=== PATIENT | female | born 1950 | race Hispanic/Latino ===

== ENCOUNTER 2016-07-13 08:26 | Day surgery (SDC) | payer MEDICARE, BC ==
[2016-07-05 12:12] VITALS: BMI 40.7
[2016-07-13 09:11] LABS: ADD MANUAL DIFF? NO
[2016-07-13 09:22] LABS: BASO # 0.03 K/mm3 (0.0-2.0); BASO % 0.6 % (0.0-3.0); EOS # 0.2 (0.0-0.7); EOS % 3.4 % (1.5-5.0); GRAN # 3.48 (1.4-6.5); GRAN % 66.2 % (50.0-68.0); HEMATOCRIT 39.9 % (36.0-48.0); LYMPH # 1.1 (1.2-3.4); MEAN CELL VOLUME 88.9 fL (80.0-105.0); MEAN CORPUSCULAR HEMOGLOBIN 31.2 pg (25.0-35.0); MEAN CORPUSCULAR HGB CONC 35.1 g/dl (31.0-37.0); MEAN PLATELET VOLUME 8.1 fl (7.0-11.0); MONO # 0.5 (0.1-0.6); MONO % 8.8 % (1.0-6.0); PLATELET COUNT 232 10^3/uL (120.0-450.0); RED CELL DISTRIBUTION WIDTH 13.6 % (11.5-14.5); WHITE BLOOD COUNT 5.3 10^3/ul (4.5-11.0)
[2016-07-13 09:27] LABS: AMYLASE 48 U/L (35-125); LIPASE 64 U/L (23-300)
[2016-07-13 09:30] LABS: INR 1.06 (0.93-1.08); PARTIAL THROMBOPLASTIN TIME 26.2 Seconds (23.7-30.8)
[2016-07-13] MEDS ORDERED: Midazolam 2 MG/2 ML VIAL ONE ×2 (10:22→10:38)
[2016-07-13 10:23] LABS: ALB/GLOB RATIO 1.1 (1.1-1.8); ALKALINE PHOSPHATASE 152 U/L (38-133); ALT/SGPT 124 U/L (7-56); AST/SGOT 158 U/L (15-39); BILIRUBIN,TOTAL 1.3 mg/dL (0.2-1.3); BLOOD UREA NITROGEN 12 mg/dL (7-21); CALCIUM 9.5 mg/dL (8.4-10.5); CARBON DIOXIDE 25 mmol/L (21-33); CHLORIDE 97 mmol/L (98-107); GFR AFRICAN-AMERICAN > 60; GLUCOSE,RANDOM 130 mg/dL (70-110); POTASSIUM 4.1 mmol/L (3.6-5.0); SODIUM 134 mmol/L (132-148); TOTAL PROTEIN 7.9 g/dL (5.8-8.3)
[2016-07-13] MEDS ORDERED: Propofol 10 mg/ml Inj (20 ML) ONE ×2 (10:23→10:39)
[2016-07-13] MEDS ORDERED: Desflurane Inhalation Anesthetic Liq (240 ml) ONE (11:31)
[2016-07-13 11:59] VITALS: TEMP 98
[2016-07-13] MEDS ORDERED: Lactated Ringer's 1,000 ML IV SCH (12:00)
[2016-07-13] MEDS ORDERED: Levalbuterol 0.63 MG/3 ML Inhal Soln UD IH PRN (12:14)
[2016-07-13] MEDS ORDERED: Levalbuterol 1.25 MG/3 ML Inhal Soln UD ONE (12:19)
[2016-07-13] MEDS ORDERED: Levalbuterol 1.25 MG/3 ML Inhal Soln UD IH ONE (12:20)
[2016-07-13] MEDS ORDERED: Levalbuterol 1.25 MG/3 ML Inhal Soln UD IH STA (12:22)
[2016-07-13 17:37] VITALS: BP 134/75; PULSE 73; RESP 18; O2SAT 98
== END 2016-07-13 14:20 | disposition home or self-care (01) ==
LOC: ENDO 08:26
PROVIDERS: ATTEND Internal Medicine Gastroenterology
DX: K25.9 Gastric ulcer, unspecified as acute or chronic, without hemorrhage or perforation (principal); K44.9 Diaphragmatic hernia without obstruction or gangrene; K83.8 Other specified diseases of biliary tract; K76.9 Liver disease, unspecified
CPT/HCPCS: 36415; 43237; 43239; 80053; 82150; 82977; 83690; 85025; 85610; 85730; 88305; 88312; 88342; J2250; J2405; J2704; J3010; J7030; J7120

== ENCOUNTER 2017-01-18 22:16 | Inpatient (IN) | payer MEDICARE ==
[2017-01-18 22:16] VITALS: BMI 40.7
[2017-01-18] MEDS ORDERED: Albuterol-Ipratrop 3 mg / 0.5 (3 ml) UD ONE (22:54)
[2017-01-18] MEDS ORDERED: Albuterol-Ipratrop 3 mg / 0.5 (3 ml) UD IH STA (23:07)
[2017-01-18] MEDS ORDERED: guaiFENesin-DM 600-30 mg ER Tab PO ONE (23:32)
--- NOTE | 2017-01-18 23:38 | ED PDOC ---
Arrival/HPI - General Historian: Patient - History of Present Illness Time/Duration: > month Symptom Onset: Gradual Symptom Course: Intermittent Activities at Onset: Rest Context: Home <GIRISH GONZALEZ - Last Filed: 01/19/17 01:25> <Poncho Easley - Last Filed: 01/19/17 01:40> - General Chief Complaint: Shortness Of Breath Time Seen by Provider: 01/18/17 23:07 - History of Present Illness Narrative History of Present Illness (Text): 01/18/17 23:35 66 yo F PMH asthmatic bronchitis, seasonal allergies, hypertension, hypothyroid , anxiety, transaminitis and ETOH abuse who presents with an intermittent cough x2 months. PMD is Dr. García. Pt states that she had a similar episode 5 years ago and was worked up and diagnosed with asthmatic bronchitis. she now complains of cough that is non-productive, shortness of breath, wheezing, some nausea but denies vomiting, chest pain. pt denies immobility or recent travel. Per son, there is a family hx of asthma and similar complaints. Pt states she is allergic to dogs. Pt drinks ETOH daily but denies tobacco or substance abuse. pt is not employed. (GIRISH GONZALEZ) Past Medical History - Provider Review Nursing Documentation Reviewed: Yes - Cardiac Hx Cardiac Disorders: Yes Hx Hypotension: Yes Hx Pacemaker: No - Pulmonary Hx Respiratory Disorders: Yes Hx Asthma: Yes Hx Bronchitis: Yes - Neurological Hx Paralysis: No - Renal Hx Renal Disorder: No - Endocrine/Metabolic Hx Endocrine Disorders: No - Hematological/Oncological Hx Blood Disorders: No Hx Blood Transfusions: No Hx Blood Transfusion Reaction: No - Integumentary Hx Dermatological Disorder: No - Musculoskeletal/Rheumatological Hx Musculoskeletal Disorders: Yes - Gastrointestinal Hx Gastrointestinal Disorders: Yes Hx Gastritis: Yes Other/Comment: liver damage - Psychiatric Hx Emotional Abuse: No Hx Physical Abuse: No Hx Substance Use: Yes (ETOH) - Surgical History Hx Orthopedic Surgery: Yes (multiple surgeries ) Other/Comment: pt has metal in right ankle - Anesthesia Hx Anesthesia Reactions: No Hx Malignant Hyperthermia: No - Suicidal Assessment Feels Threatened In Home Enviroment: No <GIRISH GONZALEZ - Last Filed: 01/19/17 01:25> Family/Social History - Physician Review Nursing Documentation Reviewed: Yes Family/Social History: No Known Family HX Smoking Status: Never Smoked Hx Alcohol Use: Yes (4-5 GLASSES TO A BOTTLE OF WINE A DAY) Hx Substance Use: No <GIRISH GONZALEZ - Last Filed: 01/19/17 01:25> Allergies/Home Meds <GIRISH GONZALEZ - Last Filed: 01/19/17 01:25> <Poncho Easley - Last Filed: 01/19/17 01:40> Allergies/Adverse Reactions: Allergies No Known Allergies Allergy (Verified 12/13/11 09:48) Home Medications: Home Meds Medication Instructions Recorded Confirmed Alprazolam [Xanax] 0.5 mg PO BID PRN 01/18/17 01/18/17 Dextromethorphan Polistirex 10 mg PO Q12 PRN 01/18/17 01/18/17 [Delsym] Fluticasone Furoate [Arnuity 1 puff IH DAILY 01/18/17 01/18/17 Ellipta] Levalbuterol Tartrate 2 puff IH PRN PRN 01/18/17 01/18/17 [Levalbuterol Tartrate Hfa] Levothyroxine [Synthroid] 25 mcg PO DAILY 01/18/17 01/18/17 Spironolactone [Aldactone] 25 mg PO DAILY 01/18/17 01/18/17 Valsartan 320 mg PO DAILY 01/18/17 01/18/17 diltiaZEM [Cardizem] 180 mg PO DAILY 01/18/17 01/18/17 Review of Systems - Physician Review All systems were reviewed & negative as marked: Yes - Review of Systems Constitutional: absent: Fevers ENT: absent: Tinnitus, Voice Changes, Sore Throat, Rhinorrhea Respiratory: SOB, Cough, Wheezing Cardiovascular: absent: Chest Pain, Palpitations, Edema, Orthopnea, Syncope Neurological: Headache. absent: Dizziness <GIRISH GONZALEZ - Last Filed: 01/19/17 01:25> Physical Exam Vital Signs Reviewed: Yes Appearance: Positive for: Well-Appearing Pain Distress: None Mental Status: Positive for: Alert and Oriented X 3 - Systems Exam Head: Present: Atraumatic, Normocephalic Pupils: Present: PERRL Extroacular Muscles: Present: EOMI Conjunctiva: Present: Normal Mouth: Present: Moist Mucous Membranes, Dry Pharnyx: Present: Normal Nose (Internal): Present: Normal Inspection Neck: Present: Normal Range of Motion. No: Meningeal Signs, Lymphadenopathy Respiratory/Chest: Present: Clear to Auscultation, Good Air Exchange, Respiratory Distress, Wheezes, Tachypneic. No: Accessory Muscle Use Cardiovascular: Present: Normal S1, S2, Tachycardic Abdomen: Present: Other (obese body habitus) Back: Present: Normal Inspection. No: CVA Tenderness, Midline Tenderness Upper Extremity: Present: Normal Inspection, Normal ROM. No: Cyanosis, Edema Lower Extremity: Present: Normal Inspection. No: Edema, CALF TENDERNESS, Cyanosis Neurological: Present: CN II-XII Intact, Speech Normal Skin: Present: Warm, Dry Psychiatric: Present: Alert, Oriented x 3 <GIRISH GONZALEZ - Last Filed: 01/19/17 01:25> Temperature: Afebrile Blood Pressure: Normal Pulse: Tachycardic Respiratory Rate: Normal <Poncho Easley - Last Filed: 01/19/17 01:40> Vital Signs Temp Pulse Resp BP Pulse Ox 01/18/17 22:50 25 H 97 01/18/17 22:41 99.0 F 118 H 26 H 119/72 74 L Medical Decision Making <GIRISH GONZALEZ - Last Filed: 01/19/17 01:25> - Lab Interpretations I have reviewed the lab results: Yes - EKG Interpretation Interpreted by ED Physician: Yes Type: 12 lead EKG <Poncho Easley - Last Filed: 01/19/17 01:40> ED Course and Treatment: 01/19/17 00:01 Impression: 66yo F presenting with cough and wheezing, likely 2/2 asthma exacerbation Differential Diagnosis included but are not limited to: r/o PNA Plan: - Reassess and disposition - CXR - Solu-medrol - duonebs - Labs - BNP Progress Notes: EKG: Ordered, reviewed, and independently interpreted the EKG. Rate : 114 BPM Rhythm : Sinus taachycardia Interpretation : No ST-segment elevations or depressions, no T-wave inversions, normal intervals. 01/19/17 00:16 pt reassessed and is resting comfortably on 2L NC sat 90% 01/19/17 01:19 CXR Impression: As read by me, no pneumothorax, no pneumonia, no cardiomegaly, no infiltrates As compared with prior exam, no significant changes. pt continues to wheeze. Dr. Jett and phlebotomist medical lab assistant Dr. Tavarez contacted for admission to med-surg for obs for COPD exacerbation (GIRISH GONZALEZ) 01/19/17 01:16 Pt. seen and evaluated with the phlebotomist medical lab assistant.Agree with HPI,clinical findings,assessment and treatment plan 01/19/17 01:39 In agreement with resident note, which includes further HPI details. Patient was seen and evaluated with resident, came up with plan and treatment together. 66 year old female presents complaining of an intermittent cough for the past 2 months. Plan: - CXR - Solu-medrol - duonebs - Labs - BNP (Poncho Easley) - Lab Interpretations Lab Results: 01/18/17 22:50 01/18/17 22:50 Lab Results 01/18/17 22:50: Sodium 124 L, Potassium 3.3 L, Chloride 88 L, Carbon Dioxide 25 , Anion Gap 14, BUN 5 L, Creatinine 0.6, Est GFR ( Amer) > 60, Est GFR ( Non-Af Amer) > 60, Random Glucose 132 H, Calcium 9.1, Phosphorus 2.7, Magnesium 1.7, Total Bilirubin 1.1, AST 46 H, ALT 45, Alkaline Phosphatase 122, NT-Pro-B Natriuret Pep 306, Total Protein 7.2, Albumin 3.8, Globulin 3.4, Albumin/ Globulin Ratio 1.1 01/18/17 22:50: WBC 9.4 D, RBC 4.28, Hgb 13.1, Hct 37.5, MCV 87.6, MCH 30.6, MCHC 34.9, RDW 14.9 H, Plt Count 262, MPV 8.1, Gran % 71.9 H, Lymph % (Auto) 16.9 L, [place] % (Auto) 9.2 H, Eos % (Auto) 1.7, Baso % (Auto) 0.3, Gran # 6.73 H , Lymph # 1.6, [place] # 0.9 H, Eos # 0.2, Baso # 0.03 - RAD Interpretation Radiology Orders: 01/18/17 23:32 CHEST TWO VIEWS (PA/LAT) [RAD] Stat - Medication Orders Current Medication Orders: Sodium Chloride (Sodium Chloride 0.9%) 1,000 mls @ 999 mls/hr IV .Q1H1M STA Stop: 01/19/17 02:13 Discontinued Medications Albuterol/Ipratropium (Duoneb 3 Mg/0.5 Mg (3 Ml) Ud) 3 ml IH STAT STA Stop: 01/18/17 23:08 Last Admin: 01/18/17 23:13 Dose: Albuterol/Ipratropium (Duoneb 3 Mg/0.5 Mg (3 Ml) Ud) 3 ml IH STAT STA Stop: 01/19/17 01:11 Guaifenesin (Robitussin) 100 mg PO STAT STA Stop: 01/18/17 23:40 Last Admin: 01/19/17 00:17 Dose: 100 mg Guaifenesin/Dextromethorphan (Mucinex-Dm 600-30 Mg) 1 tab PO ONCE ONE Stop: 01/18/17 23:33 Last Admin: 01/18/17 23:49 Dose: 1 tab Methylprednisolone (Solu-Medrol) 125 mg IVP STAT STA Stop: 01/18/17 23:33 Last Admin: 01/18/17 23:49 Dose: 125 mg IVP Administration Document 01/18/17 23:49 RD (Rec: 01/18/17 23:49 RD [id number]) Charges for Administration # of IVP Administrations 1 Potassium Chloride (K-Dur 20 Meq Er Tab) 40 meq PO STAT STA Stop: 01/19/17 01:14 <GIRISH GONZALEZ - Last Filed: 01/19/17 01:25> - PA / HEALTH ANALYTICS CONSULTANT / Resident Statement OSIRIS has reviewed & agrees with the documentation as recorded. OSIRIS has examined the patient and agrees with the treatment plan. - Scribe Statement The provider has reviewed the documentation as recorded by the Scribe <Poncho Easley - Last Filed: 01/19/17 01:40> - Scribe Statement Lina Lane Provider Scribe Attestation: All medical record entries made by the Scribe were at my direction and personally dictated by me. I have reviewed the chart and agree that the record accurately reflects my personal performance of the history, physical exam, medical decision making, and the department course for this patient. I have also personally directed, reviewed, and agree with the discharge instructions and disposition. (Poncho Easley) Disposition/Present on Arrival - Present on Arrival Any Indicators Present on Arrival: No History of DVT/PE: No History of Uncontrolled Diabetes: No Urinary Catheter: No History of Decub. Ulcer: No History Surgical Site Infection Following: None - Disposition Have Diagnosis and Disposition been Completed?: Yes Disposition Time: 01:20 Patient Plan: Admission <GIRISH GONZALEZ - Last Filed: 01/19/17 01:25> <Poncho Easley - Last Filed: 01/19/17 01:40> - Disposition Diagnosis: COPD exacerbation Disposition: HOSPITALIZED Condition: STABLE Forms: [id number] (French)
[2017-01-18] MEDS ORDERED: guaiFENesin 100 mg/5 ml Syrup UD PO STA (23:39)
[2017-01-18 23:57] LABS: BASO # 0.03 K/mm3 (0.0-2.0); BASO % 0.3 % (0.0-3.0); EOS # 0.2 (0.0-0.7); EOS % 1.7 % (1.5-5.0); GRAN # 6.73 (1.4-6.5); GRAN % 71.9 % (50.0-68.0); HEMATOCRIT 37.5 % (36.0-48.0); LYMPH # 1.6 (1.2-3.4); LYMPH % 16.9 % (22.0-35.0); MEAN CELL VOLUME 87.6 fl (80.0-105.0); MEAN CORPUSCULAR HEMOGLOBIN 30.6 pg (25.0-35.0); MEAN CORPUSCULAR HGB CONC 34.9 g/dl (31.0-37.0); MEAN PLATELET VOLUME 8.1 fl (7.0-11.0); MONO # 0.9 (0.1-0.6); MONO % 9.2 % (1.0-6.0); RED CELL DISTRIBUTION WIDTH 14.9 % (11.5-14.5); WHITE BLOOD COUNT 9.4 10^3/ul (4.5-11.0)
[2017-01-19] LABS: ALB/GLOB RATIO 1.1 (1.1-1.8); ALKALINE PHOSPHATASE 122 U/L (38-126); ALT/SGPT 45 U/L (7-56); AST/SGOT 46 U/L (14-36); BILIRUBIN,TOTAL 1.1 mg/dL (0.2-1.3); BLOOD UREA NITROGEN 5 mg/dL (7-21); CALCIUM 9.1 mg/dL (8.4-10.5); CARBON DIOXIDE 25 mmol/L (21-33); CHLORIDE 88 mmol/L (98-107); GFR AFRICAN-AMERICAN > 60; GLUCOSE,RANDOM 132 mg/dL (70-110); MAGNESIUM 1.7 mg/dL (1.7-2.2); PHOSPHOROUS 2.7 mg/dL (2.5-4.5); POTASSIUM 3.3 mmol/L (3.6-5.0); SODIUM 124 mmol/L (132-148); TOTAL PROTEIN 7.2 g/dL (5.8-8.3)
[2017-01-19] MEDS ORDERED: Albuterol-Ipratrop 3 mg / 0.5 (3 ml) UD IH STA (01:10)
[2017-01-19] MEDS ORDERED: Potassium Chloride 20 mEq ER Tab PO STA (01:13)
[2017-01-19] MEDS ORDERED: Sodium Chloride 0.9% 1,000 ML IV STA (01:13)
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
[2017-01-19] MEDS ORDERED: Albuterol-Ipratrop 3 mg / 0.5 (3 ml) UD IH PRN (02:23)
[2017-01-19] MEDS: Levothyroxine 25 MCG TAB PO SCH (06:04)
[2017-01-19] MEDS: guaiFENesin 100 mg/5 ml Syrup UD PO PRN (06:04)
[2017-01-19] MEDS: Albuterol-Ipratrop 3 mg / 0.5 (3 ml) UD IH SCH ×2 (07:52→13:26)
[2017-01-19 09:14] LABS: HEMATOCRIT 36.9 % (36.0-48.0); MEAN CELL VOLUME 87.6 fl (80.0-105.0); MEAN CORPUSCULAR HEMOGLOBIN 30.2 pg (25.0-35.0); MEAN CORPUSCULAR HGB CONC 34.4 g/dl (31.0-37.0); RED CELL DISTRIBUTION WIDTH 15.2 % (11.5-14.5); WHITE BLOOD COUNT 5.3 10^3/ul (4.5-11.0)
[2017-01-19] MEDS ORDERED: methylPREDNISolone 40 GM in Sodium Chloride 0.9% 250 ML IV SCH (10:00)
[2017-01-19] MEDS: MethylPREDNISolone 40 mg Vial IV SCH ×2 (10:02→18:54)
[2017-01-19] MEDS: levoFLOXacin 500 MG TAB PO SCH (10:04)
[2017-01-19] MEDS: diltiaZEM 180 mg/24 Hours CD Cap PO SCH (10:04)
[2017-01-19] MEDS: Non Formulary Medication (Fluticasone Furoate [Arnuity Ellipta] 1 PUFF) IH SCH (10:12)
[2017-01-19 10:32] LABS: ALB/GLOB RATIO 1.1 (1.1-1.8); ALKALINE PHOSPHATASE 110 U/L (38-126); ALT/SGPT 34 U/L (7-56); AST/SGOT 48 U/L (14-36); BILIRUBIN,TOTAL 0.9 mg/dL (0.2-1.3); BLOOD UREA NITROGEN 6 mg/dL (7-21); CALCIUM 9.4 mg/dL (8.4-10.5); CARBON DIOXIDE 23 mmol/L (21-33); CHLORIDE 96 mmol/L (98-107); CHOLESTEROL 168 mg/dL (130-200); GFR AFRICAN-AMERICAN > 60; GLUCOSE,RANDOM 241 mg/dL (70-110); POTASSIUM 4.4 mmol/L (3.6-5.0); SODIUM 132 mmol/L (132-148); TOTAL PROTEIN 7.3 g/dL (5.8-8.3)
[2017-01-19 11:00] LABS: THYROID STIMULATING HORMONE 0.69 mIU/mL (0.46-4.68)
--- NOTE | 2017-01-19 11:50 | RAD ---
HISTORY: cough r/o pna COMPARISON: 01/03/2017 TECHNIQUE: Chest PA and lateral FINDINGS: LUNGS: No active pulmonary disease. PLEURA: No significant pleural effusion identified. No pneumothorax apparent. CARDIOVASCULAR: Normal. OSSEOUS STRUCTURES: No significant abnormalities. VISUALIZED UPPER ABDOMEN: Normal. OTHER FINDINGS: None. IMPRESSION: No active disease.
[2017-01-19 14:31] LABS: BLOOD UREA NITROGEN 9 mg/dL (7-21); CALCIUM 9.4 mg/dL (8.4-10.5); CARBON DIOXIDE 20 mmol/L (21-33); CHLORIDE 96 mmol/L (98-107); GFR AFRICAN-AMERICAN > 60; GLUCOSE,RANDOM 196 mg/dL (70-110); POTASSIUM 4.2 mmol/L (3.6-5.0); SODIUM 129 mmol/L (132-148)
[2017-01-19] MEDS ORDERED: Levalbuterol 0.63 MG/3 ML Inhal Soln UD IH PRN (15:05)
[2017-01-19] MEDS ORDERED: Pantoprazole 40 mg EC Tab PO STA (18:47)
[2017-01-19 20:03] LABS: BLOOD UREA NITROGEN 15 mg/dL (7-21); CALCIUM 9.2 mg/dL (8.4-10.5); CARBON DIOXIDE 24 mmol/L (21-33); CHLORIDE 93 mmol/L (98-107); GFR AFRICAN-AMERICAN > 60; GLUCOSE,RANDOM 168 mg/dL (70-110); POTASSIUM 4.8 mmol/L (3.6-5.0); SODIUM 125 mmol/L (132-148)
[2017-01-19] MEDS: Levalbuterol 0.63 MG/3 ML Inhal Soln UD IH SCH (23:43)
--- NOTE | 2017-01-20 05:08 | CP.PCM.CON ---
History of Present Illness - History of Present Illness History of Present Illness: 66 yo F w/ pmh of asthmatic bronchitis, htn, hypothyroidism, presented to ED yesterday with increased shortness of breath and persistent cough; found to be hyponatremic, nephrology being consulted for the same; Patient reports her respiratory symptoms began more than 1 month ago; was sent to supply and distribution manager about 2 weeks ago and was placed on multiple inhalers and medrol thuy (which she completed 1 week ago); however, she reports no significant improvement with these new meds; She reports that at baseline, she can only walk about 1 block before having to stop due to feeling tired, short of breath and with back pain; she gets intermittent leg swelling; Patient otherwise reports drinking about 5L of water daily; she gets up ~twice per night to urinate; denies any urinary urgency, dysuria or feeling of incomplete evacuation; Patient on admission was found to have Na of 124, was given 1L NS bolus, with Na increasing to 132 after ~10 hrs. Review of Systems - Constitutional Constitutional: absent: Night Sweats - EENT Eyes: absent: Change in Vision Nose/Mouth/Throat: Sinus Pressure - Cardiovascular Cardiovascular: Leg Edema. absent: Chest Pain, Palpitations - Respiratory Respiratory: As Per HPI - Gastrointestinal Gastrointestinal: absent: Diarrhea, Nausea, Vomiting - Genitourinary Genitourinary: absent: Change in Urinary Stream, Difficulty Urinating, Dysuria, Urinary Frequency, Urinary Urgency - Musculoskeletal Musculoskeletal: Back Pain - Neurological Additional comments: headache associated with recent cough; - Psychiatric Psychiatric: Anxiety Past Patient History - Past Medical History & Family History Pertinent Family History: Father with esophageal CA; - Past Social History Smoking Status: Never Smoked - CARDIAC Hx Cardiac Disorders: Yes Hx Hypotension: Yes Hx Pacemaker: No - PULMONARY Hx Respiratory Disorders: Yes Hx Asthma: Yes Hx Bronchitis: Yes - NEUROLOGICAL Hx Paralysis: No - RENAL Hx Chronic Kidney Disease: No - ENDOCRINE/METABOLIC Hx Endocrine Disorders: No - HEMATOLOGICAL/ONCOLOGICAL Hx Blood Disorders: No - INTEGUMENTARY Hx Dermatological Problems: No - MUSCULOSKELETAL/RHEUMATOLOGICAL Hx Musculoskeletal Disorders: Yes Hx Falls: No - GASTROINTESTINAL Hx Gastrointestinal Disorders: Yes Other/Comment: liver damage - PSYCHIATRIC Hx Anxiety: Yes Hx Emotional Abuse: No Hx Physical Abuse: No Hx Substance Use: No - SURGICAL HISTORY Hx Orthopedic Surgery: Yes (multiple surgeries ) Other/Comment: pt has metal in right ankle - ANESTHESIA Hx Anesthesia Reactions: No Hx Malignant Hyperthermia: No Meds Allergies/Adverse Reactions: Allergies Allergy/AdvReac Type Severity Reaction Status Date / Time No Known Allergies Allergy Verified 12/13/11 09:48 - Medications Medications: Current Medications Alprazolam (Xanax) 0.5 mg PO BID PRN; Protocol PRN Reason: Anxiety Last Admin: 01/19/17 22:05 Dose: 0.5 mg Diltiazem HCl (Cardizem Cd) 180 mg PO DAILY [facility] Last Admin: 01/19/17 10:04 Dose: 180 mg Guaifenesin (Robitussin) 100 mg PO Q8H PRN PRN Reason: Cough Last Admin: 01/19/17 06:04 Dose: 100 mg Levalbuterol HCl (Xopenex) 0.63 mg IH TIDRESP [facility] Last Admin: 01/19/17 23:43 Dose: 0.63 mg Levalbuterol HCl (Xopenex) 0.63 mg IH [id number] PRN PRN Reason: Shortness of Breath Levofloxacin (Levaquin) 500 mg PO DAILY [facility] Last Admin: 01/19/17 10:04 Dose: 500 mg Levothyroxine Sodium (Synthroid) 25 mcg PO 0600 [facility] Last Admin: 01/19/17 06:04 Dose: 25 mcg Loratadine (Claritin) 10 mg PO DAILY [facility] Last Admin: 01/19/17 10:05 Dose: 10 mg Methylprednisolone (Solu-Medrol) 40 mg IV BID [facility] Last Admin: 01/19/17 18:54 Dose: 40 mg Non-Formulary Medication (Fluticasone Furoate [Arnuity Ellipta]) 1 puff IH DAILY [facility] Last Admin: 01/19/17 10:12 Dose: Not Given Pantoprazole Sodium (Protonix Ec Tab) 40 mg PO 0600 [facility] Sodium Chloride (Sodium Chloride Tab) 2 gm PO Q8 [facility] Last Admin: 01/19/17 21:39 Dose: 2 gm Spironolactone (Aldactone) 25 mg PO DAILY [facility] Last Admin: 01/19/17 10:03 Dose: 25 mg Valsartan (Diovan) 320 mg PO DAILY [facility] Last Admin: 01/19/17 10:04 Dose: 320 mg Physical Exam - Constitutional Appears: Non-toxic, No Acute Distress - Head Exam Head Exam: NORMAL INSPECTION - Eye Exam Eye Exam: Normal appearance. absent: Scleral icterus - ENT Exam ENT Exam: Mucous Membranes Moist - Respiratory Exam Respiratory Exam: Wheezes, NORMAL BREATHING PATTERN - Cardiovascular Exam Cardiovascular Exam: RRR, +S1, +S2 - GI/Abdominal Exam GI & Abdominal Exam: Soft. absent: Distended, Tenderness - Extremities Exam Extremities exam: Negative for: pedal edema Additional comments: faint b/l DP pulses; - Neurological Exam Neurological exam: Alert, Oriented x3 - Psychiatric Exam Psychiatric exam: Normal Affect, Normal Mood - Skin Skin Exam: Normal Color, Warm Results - Vital Signs Recent Vital Signs: Last Vital Signs Temp 98.3 F 01/20/17 00:00 Pulse 101 H 01/20/17 00:00 Resp 22 01/20/17 00:00 BP 122/72 01/20/17 00:00 Pulse Ox 95 01/20/17 00:00 - Labs Result Diagrams: 01/19/17 09:00 01/19/17 19:48 Labs: Laboratory Results - last 24 hr 01/19/17 01/19/17 01/19/17 09:00 09:00 09:00 WBC 5.3 D RBC 4.21 Hgb 12.7 Hct 36.9 MCV 87.6 MCH 30.2 MCHC 34.4 RDW 15.2 H Plt Count 230 MPV 8.0 Sodium 132 Potassium 4.4 Chloride 96 L Carbon Dioxide 23 Anion Gap 17 BUN 6 L Creatinine 0.5 Est GFR ( Amer) > 60 Est GFR (Non-Af Amer) > 60 Random Glucose 241 H Serum Osmolality 282 Calcium 9.4 Total Bilirubin 0.9 AST 48 H ALT 34 Alkaline Phosphatase 110 Total Protein 7.3 Albumin 3.8 Globulin 3.5 Albumin/Globulin Ratio 1.1 Triglycerides 70 Cholesterol 168 LDL Cholesterol Direct 93 HDL Cholesterol 55 TSH 3rd Generation 0.69 Ur Random Sodium 01/19/17 01/19/17 01/19/17 14:00 19:48 20:18 WBC RBC Hgb Hct MCV MCH MCHC RDW Plt Count MPV Sodium 129 L 125 L Potassium 4.2 4.8 Chloride 96 L 93 L Carbon Dioxide 20 L 24 Anion Gap 17 13 BUN 9 15 Creatinine 0.5 0.5 Est GFR ( Amer) > 60 > 60 Est GFR (Non-Af Amer) > 60 > 60 Random Glucose 196 H 168 H Serum Osmolality Calcium 9.4 9.2 Total Bilirubin AST ALT Alkaline Phosphatase Total Protein Albumin Globulin Albumin/Globulin Ratio Triglycerides Cholesterol LDL Cholesterol Direct HDL Cholesterol TSH 3rd Generation Ur Random Sodium 44 - Imaging and Cardiology Chest x-ray Status: Image reviewed by me Additional comment: Increased interstitial markings; Assessment & Plan (1) Hyponatremia Assessment and Plan: Likely secondary to volume depletion, in the setting of being on aldactone, in addition to somewhat excessive free water intake; rapid correction following NS bolus also supports this process; Na needing to be rapidly re-lowered today to avoid neurologic manifestations; will continue to monitor; -fluid restriction to < 1L per day until Na stabilizes -hold aldactone -starting NaCl tabs 2g q8h -awaiting Ur osm Status: Acute (2) Bronchitis Assessment and Plan: Prolonged symptoms of unclear etiology; consider chest CT; Status: Acute (3) HTN (hypertension) Assessment and Plan: Normotensive; continue diovan, hold aldactone; Status: Acute
[2017-01-20] MEDS: Levothyroxine 25 MCG TAB PO SCH (06:08)
[2017-01-20] MEDS: Pantoprazole 40 mg EC Tab PO SCH (06:08)
[2017-01-20 07:22] LABS: GRAN # 7.38 (1.4-6.5); GRAN % 87.4 % (50.0-68.0); HEMATOCRIT 33.1 % (36.0-48.0); LYMPH # 0.6 (1.2-3.4); LYMPH % 6.8 % (22.0-35.0); MEAN CELL VOLUME 88.5 fl (80.0-105.0); MEAN CORPUSCULAR HEMOGLOBIN 30.5 pg (25.0-35.0); MEAN CORPUSCULAR HGB CONC 34.4 g/dl (31.0-37.0); MEAN PLATELET VOLUME 8.1 fl (7.0-11.0); MONO # 0.5 (0.1-0.6); MONO % 5.8 % (1.0-6.0); RED CELL DISTRIBUTION WIDTH 15.3 % (11.5-14.5); WHITE BLOOD COUNT 8.4 10^3/ul (4.5-11.0)
[2017-01-20 07:24] LABS: ALB/GLOB RATIO 1.1 (1.1-1.8); ALKALINE PHOSPHATASE 88 U/L (38-126); ALT/SGPT 36 U/L (7-56); AST/SGOT 37 U/L (14-36); BILIRUBIN,TOTAL 0.6 mg/dL (0.2-1.3); BLOOD UREA NITROGEN 13 mg/dL (7-21); CALCIUM 8.8 mg/dL (8.4-10.5); CARBON DIOXIDE 24 mmol/L (21-33); CHLORIDE 95 mmol/L (98-107); GFR AFRICAN-AMERICAN > 60; GLUCOSE,RANDOM 165 mg/dL (70-110); SODIUM 126 mmol/L (132-148); TOTAL PROTEIN 6.6 g/dL (5.8-8.3)
--- NOTE | 2017-01-20 08:28 | CARD ---
APPROVED REPORT EKG Measurement Heart [id number] <Conclusion> Sinus tachycardia NSSTW changes Prolonged QTc
[2017-01-20] MEDS: Levalbuterol 0.63 MG/3 ML Inhal Soln UD IH SCH ×3 (08:32→21:30)
[2017-01-20 08:56] LABS: POTASSIUM 4.6 mmol/L (3.6-5.0)
[2017-01-20] MEDS: MethylPREDNISolone 40 mg Vial IVP SCH ×2 (09:40→22:43)
[2017-01-20] MEDS: diltiaZEM 180 mg/24 Hours CD Cap PO SCH (09:41)
[2017-01-20] MEDS: Non Formulary Medication (Fluticasone Furoate [Arnuity Ellipta] 1 PUFF) IH SCH (09:41)
[2017-01-20] MEDS: levoFLOXacin 500 MG TAB PO SCH (09:41)
[2017-01-20] MEDS: Fluticasone Nasal 50 mcg/Spray NS SCH (09:42)
--- NOTE | 2017-01-20 13:39 | CON ---
DATE: 01/20/2017 PULMONARY CONSULTATION REASON FOR CONSULTATION: Chronic obstructive pulmonary disease. REFERRING PHYSICIAN: Dr. Tatum HISTORY OF PRESENT ILLNESS: The patient is a 66-year-old female, with past medical history significant for chronic obstructive pulmonary disease, asthma, recurrent bronchitis, seasonal allergies, hypertension, anxiety disorder and alcohol abuse, who presents to [facility] with worsening shortness of breath at rest, dyspnea on exertion, cough, and minimal sputum production for the past 5 days. The patient states that these symptoms have been present over the past few months, but did get much worse over the past 5 days. This worsening prompted her to come to the emergency room for additional evaluation and treatment. There is no history of chest pain, coughing up of blood, or chest pain - made worse with deep respirations. There is no history of temperatures, chills or infectious exposure. There is no history of night sweats, weight loss or appetite change prior to the above events. No history of leg or calf pains. No history of syncope or diaphoresis. No history of recent travel or trauma. REVIEW OF SYSTEMS: The patient does state to a runny nose with postnasal drip over the past few months. No history of nausea, vomiting or diarrhea. No acute urinary symptoms. No new neurologic or musculoskeletal complaints. Rest of the review of systems is negative. ALLERGIES: NO KNOWN ALLERGIES. SOCIAL HISTORY: Negative for tobacco. Positive for alcohol abuse. FAMILY HISTORY: No inheritable diseases. HOME MEDICATIONS: Include albuterol inhaler, Xanax, Cardizem, Valsartan, Aldactone, and Synthroid. PHYSICAL EXAMINATION GENERAL: The patient appears comfortable at rest this morning. She is not short of breath. She is not using accessory muscles for breathing. VITAL SIGNS: Temperature is 98.3, pulse is 88, respirations are 18, and blood pressure is 122/72. Oxygen saturation on room air is 95% to 96%. HEENT: Normocephalic and atraumatic. NECK: No JVD. CARDIOVASCULAR: Positive S1 and S2. No S3 gallop. LUNGS: Decreased breath sounds at the bases. Minimal rhonchi. Few minimal expiratory wheezes are also appreciated. EXTREMITIES: Mild edema. No cyanosis and no clubbing. Calves are nontender to palpation. GASTROINTESTINAL: Abdomen is soft, nontender and nondistended. Bowel sounds are positive. SKIN: No acute rash. NEUROLOGIC: Exam is limited at the present time. PERTINENT LABORATORY DATA: Chest x-ray was done and reviewed. There is no active disease present. CBC: White count of 5.3, hemoglobin of 12.7, hematocrit of 36.9, and platelets of 230. Complete metabolic profile: Sodium of 125, chloride of 93, and random glucose of 168. Rest of the metabolic profiles are within normal limits. IMPRESSION 1. Acute bronchitis. 2. Chronic obstructive pulmonary disease. 3. Allergic rhinitis. 4. Hyponatremia. PLAN: The patient presents to [facility] with a 5-day history of worsening pulmonary symptoms. Again, she has been experiencing more symptoms for the past 2 months, but the symptoms became much worse over the past 5 days - prompting her to come to the emergency room. I did review the chest x-ray as above. The chest x-ray reveals no acute disease. I have also reviewed the laboratory data. Hyponatremia is noted. The patient does admit to daily alcohol abuse, as well as drinking significant amounts of water at home. I have strongly advised her against these practices. Input by Renal is noted. Repeat a.m. labs are pending. On physical exam, there is only minimal bronchospasm appreciated. I will continue the current nebulizer treatments and decrease the intravenous steroids this morning. The patient remains on oral antibiotic therapy. There are no temperatures noted. There is no leukocytosis. Clinical status of the patient is certainly improved - compared to the initial presentation. I will discuss the above with the attending physician. Thank you very much for this pulmonary consultation. Alli Turner MD MTDShari
--- NOTE | 2017-01-20 16:56 | CP.PCM.PN ---
<Karri Sweeney - Last Filed: 01/20/17 16:53> Subjective - Date & Time of Evaluation Date of Evaluation: 01/20/17 Time of Evaluation: 10:00 - Subjective Subjective: Medicine Progress note. Dr. Tatum Pt seen and examined at bedside. No acute events overnight. Patient denies any CP. She is visibly SOB in the bed this morning, and reports that she "saw our team rounding and was hurrying to put on her clothes and that is why she is short of breath." She states that overall, her SOB has improved. Denies any Cough, no CP. No F/C. No new complaints. Objective - Vital Signs/Intake and Output Vital Signs (last 24 hours): Temp Pulse Resp BP Pulse Ox 97.6 F 88 20 133/67 95 01/20/17 08:00 01/20/17 08:00 01/20/17 08:00 01/20/17 08:00 01/20/17 08:00 Intake and Output: 01/20/17 01/20/17 06:59 18:59 Intake Total 240 820 Balance 240 820 - Medications Medications: Current Medications Alprazolam (Xanax) 0.5 mg PO BID PRN; Protocol PRN Reason: Anxiety Last Admin: 01/20/17 14:55 Dose: 0.5 mg Diltiazem HCl (Cardizem Cd) 180 mg PO DAILY [facility] Last Admin: 01/20/17 09:41 Dose: 180 mg Fluticasone Propionate (Flonase) 1 actuation NS DAILY [facility] Last Admin: 01/20/17 09:42 Dose: Not Given Guaifenesin (Robitussin) 100 mg PO Q8H PRN PRN Reason: Cough Last Admin: 01/19/17 06:04 Dose: 100 mg Levalbuterol HCl (Xopenex) 0.63 mg IH TIDRESP [facility] Last Admin: 01/20/17 13:00 Dose: 0.63 mg Levalbuterol HCl (Xopenex) 0.63 mg IH [id number] PRN PRN Reason: Shortness of Breath Levofloxacin (Levaquin) 500 mg PO DAILY [facility] Last Admin: 01/20/17 09:41 Dose: 500 mg Levothyroxine Sodium (Synthroid) 25 mcg PO 0600 [facility] Last Admin: 01/20/17 06:08 Dose: 25 mcg Loratadine (Claritin) 10 mg PO DAILY [facility] Last Admin: 01/20/17 09:41 Dose: 10 mg Methylprednisolone (Solu-Medrol) 30 mg IVP Q12 [facility] Last Admin: 01/20/17 09:40 Dose: 30 mg Non-Formulary Medication (Fluticasone Furoate [Arnuity Ellipta]) 1 puff IH DAILY [facility] Last Admin: 01/20/17 09:41 Dose: Not Given Pantoprazole Sodium (Protonix Ec Tab) 40 mg PO 0600 [facility] Last Admin: 01/20/17 06:08 Dose: 40 mg Sodium Chloride (Sodium Chloride Tab) 2 gm PO Q8 [facility] Last Admin: 01/20/17 13:33 Dose: 2 gm Spironolactone (Aldactone) 25 mg PO DAILY [facility] Last Admin: 01/19/17 10:03 Dose: 25 mg Valsartan (Diovan) 320 mg PO DAILY [facility] Last Admin: 01/20/17 09:43 Dose: 320 mg - Labs Labs: 01/20/17 06:00 01/20/17 06:00 - Constitutional Appears: Well, No Acute Distress - Head Exam Head Exam: ATRAUMATIC, NORMAL INSPECTION, NORMOCEPHALIC - Eye Exam Eye Exam: EOMI, Normal appearance - ENT Exam ENT Exam: Mucous Membranes Moist - Respiratory Exam Respiratory Exam: Clear to Ausculation Bilateral. absent: Decreased Breath Sounds, Rales, Rhonchi, Wheezes Additional comments: Increased work of breathing noted this AM, however, lung sounds are clear bilaterally - Cardiovascular Exam Cardiovascular Exam: RRR, +S1, +S2. absent: JVD - GI/Abdominal Exam GI & Abdominal Exam: Soft. absent: Firm, Guarding, Rigid, Tenderness, Rebound - Extremities Exam Extremities Exam: Normal Inspection. absent: Calf Tenderness, Pedal Edema - Back Exam Back Exam: NORMAL INSPECTION - Neurological Exam Neurological Exam: Alert, Awake, Oriented x3 - Psychiatric Exam Psychiatric exam: Anxious, Normal Mood - Skin Skin Exam: Dry, Intact, Normal Color, Warm Assessment and Plan - Assessment and Plan (Free Text) Assessment: 66yo F with PMHx of asthmatic bronchitis, HTN, hypothyroidism, anxiety, and ETOH abuse here for evaluation of SOB. Patient's lung exam has improved since admission. However, she desaturates to 90% when on RA and down to 86-87% upon walking a few steps. Will need eval for home O2. 1. Asthma/COPD Exacerbation Continue breathing treatments Solumedrol tapered to 30mg IV BID Levaquin Supplemental O2 CXR - no active disease Pulm following Continue home meds Patient continues to desaturate off supplemental O2 and with minimal exertion Patient may benefit with home O2 on Claritin, Robitussin prn 2. Hyponatremia Urine studies sent Nephrology following Fluid restriction Salt tabs Continue to monitor 3. Hx of Anxiety Xanax prn 4. Hx of HTN continue home meds hold spironolactone due to above 5. Hx of Hypothyroid continue home meds 6. PPx Protonix SCDs Discussed case with Dr. Deepti Sweeney PGY1 <Sarahy Tatum - Last Filed: 01/20/17 18:39> Objective - Vital Signs/Intake and Output Vital Signs (last 24 hours): Temp Pulse Resp BP Pulse Ox 97.6 F 88 20 133/67 95 01/20/17 08:00 01/20/17 08:00 01/20/17 08:00 01/20/17 08:00 01/20/17 08:00 - Medications Medications: Current Medications Alprazolam (Xanax) 0.5 mg PO BID PRN; Protocol PRN Reason: Anxiety Last Admin: 01/20/17 14:55 Dose: 0.5 mg Diltiazem HCl (Cardizem Cd) 180 mg PO DAILY [facility] Last Admin: 01/20/17 09:41 Dose: 180 mg Fluticasone Propionate (Flonase) 1 actuation NS DAILY [facility] Last Admin: 01/20/17 09:42 Dose: Not Given Guaifenesin (Robitussin) 100 mg PO Q8H PRN PRN Reason: Cough Last Admin: 01/20/17 18:08 Dose: 100 mg Levalbuterol HCl (Xopenex) 0.63 mg IH TIDRESP [facility] Last Admin: 01/20/17 13:00 Dose: 0.63 mg Levalbuterol HCl (Xopenex) 0.63 mg IH [id number] PRN PRN Reason: Shortness of Breath Levofloxacin (Levaquin) 500 mg PO DAILY [facility] Last Admin: 01/20/17 09:41 Dose: 500 mg Levothyroxine Sodium (Synthroid) 25 mcg PO 0600 [facility] Last Admin: 01/20/17 06:08 Dose: 25 mcg Loratadine (Claritin) 10 mg PO DAILY [facility] Last Admin: 01/20/17 09:41 Dose: 10 mg Methylprednisolone (Solu-Medrol) 30 mg IVP Q12 [facility] Last Admin: 01/20/17 09:40 Dose: 30 mg Non-Formulary Medication (Fluticasone Furoate [Arnuity Ellipta]) 1 puff IH DAILY [facility] Last Admin: 01/20/17 09:41 Dose: Not Given Pantoprazole Sodium (Protonix Ec Tab) 40 mg PO 0600 [facility] Last Admin: 01/20/17 06:08 Dose: 40 mg Sodium Chloride (Sodium Chloride Tab) 2 gm PO Q8 [facility] Last Admin: 01/20/17 13:33 Dose: 2 gm Spironolactone (Aldactone) 25 mg PO DAILY [facility] Last Admin: 01/19/17 10:03 Dose: 25 mg Valsartan (Diovan) 320 mg PO DAILY [facility] Last Admin: 01/20/17 09:43 Dose: 320 mg Attending/Attestation - Attestation I have personally seen and examined this patient.: Yes I have fully participated in the care of the patient.: Yes I have reviewed all pertinent clinical information, including history, physical exam and plan: Yes Notes (Text): 01/20/17 18:36 66 year old female with past medical history of asthma/COPD, hypertension and hypothyroidism who is admitted with COPD exacerbation. Pulmonary evaluation was appreciated. Her wheezing has improved with iv steroids which are being tapered. However she continues to have dyspnea and hypoxia with minimal exertion. Will check 6min walk test tomorrow to assess for possible home O2 requirement. She also presented with hyponatremia for which nephrology is following. She is currently on fluid restriction. Sarahy Tatum MD Hospitalist.
[2017-01-20] MEDS: guaiFENesin 100 mg/5 ml Syrup UD PO PRN (18:08)
[2017-01-21] MEDS: Pantoprazole 40 mg EC Tab PO SCH (05:31)
[2017-01-21] MEDS: Levothyroxine 25 MCG TAB PO SCH (05:32)
--- NOTE | 2017-01-21 06:24 | CP.PCM.PN ---
Subjective - Date & Time of Evaluation Date of Evaluation: 01/20/17 Time of Evaluation: 12:00 - Subjective Subjective: Patient reports shortness of breath on exertion but that this is her baseline, otherwise feels better; Objective - Vital Signs/Intake and Output Vital Signs (last 24 hours): Temp Pulse Resp BP Pulse Ox 97.9 F 90 18 131/79 95 01/20/17 16:00 01/20/17 16:00 01/20/17 16:00 01/20/17 16:00 01/20/17 16:00 Intake and Output: 01/20/17 01/21/17 18:59 06:59 Intake Total 240 Balance 240 - Medications Medications: Current Medications Alprazolam (Xanax) 0.5 mg PO BID PRN; Protocol PRN Reason: Anxiety Last Admin: 01/20/17 22:42 Dose: 0.5 mg Diltiazem HCl (Cardizem Cd) 180 mg PO DAILY [facility] Last Admin: 01/20/17 09:41 Dose: 180 mg Fluticasone Propionate (Flonase) 1 actuation NS DAILY [facility] Last Admin: 01/20/17 09:42 Dose: Not Given Guaifenesin (Robitussin) 100 mg PO Q8H PRN PRN Reason: Cough Last Admin: 01/20/17 18:08 Dose: 100 mg Levalbuterol HCl (Xopenex) 0.63 mg IH TIDRESP [facility] Last Admin: 01/20/17 21:30 Dose: 0.63 mg Levalbuterol HCl (Xopenex) 0.63 mg IH [id number] PRN PRN Reason: Shortness of Breath Levofloxacin (Levaquin) 500 mg PO DAILY [facility] Last Admin: 01/20/17 09:41 Dose: 500 mg Levothyroxine Sodium (Synthroid) 25 mcg PO 0600 [facility] Last Admin: 01/21/17 05:32 Dose: 25 mcg Loratadine (Claritin) 10 mg PO DAILY [facility] Last Admin: 01/20/17 09:41 Dose: 10 mg Methylprednisolone (Solu-Medrol) 30 mg IVP Q12 [facility] Last Admin: 01/20/17 22:43 Dose: 30 mg Non-Formulary Medication (Fluticasone Furoate [Arnuity Ellipta]) 1 puff IH DAILY [facility] Last Admin: 01/20/17 09:41 Dose: Not Given Pantoprazole Sodium (Protonix Ec Tab) 40 mg PO 0600 [facility] Last Admin: 01/21/17 05:31 Dose: 40 mg Sodium Chloride (Sodium Chloride Tab) 2 gm PO Q8 [facility] Last Admin: 01/21/17 05:31 Dose: 2 gm Spironolactone (Aldactone) 25 mg PO DAILY [facility] Last Admin: 01/19/17 10:03 Dose: 25 mg Valsartan (Diovan) 320 mg PO DAILY [facility] Last Admin: 01/20/17 09:43 Dose: 320 mg - Constitutional Appears: Non-toxic, No Acute Distress - Head Exam Head Exam: NORMAL INSPECTION - Eye Exam Eye Exam: Normal appearance. absent: Scleral icterus - ENT Exam ENT Exam: Mucous Membranes Moist - Respiratory Exam Respiratory Exam: Clear to Ausculation Bilateral. absent: Rales, Rhonchi, Wheezes - Cardiovascular Exam Cardiovascular Exam: RRR, +S1, +S2 - GI/Abdominal Exam GI & Abdominal Exam: Soft. absent: Distended, Tenderness - Extremities Exam Additional comments: no leg edema; - Neurological Exam Neurological Exam: Alert, Awake - Psychiatric Exam Psychiatric exam: Normal Affect, Normal Mood - Skin Skin Exam: Normal Color, Warm. absent: Cyanosis Assessment and Plan (1) Hyponatremia Assessment & Plan: After needing to be re-lowered rapidly yesterday, now improving gradually; continue fluid restriction and salt tabs; Status: Acute (2) Bronchitis Assessment & Plan: Reports symptomatic improvement; f/u pulm recs; Status: Acute (3) HTN (hypertension) Assessment & Plan: BP controlled; reports being prescribed aldactone but not taking it, continue to hold; Status: Acute
[2017-01-21] MEDS: Levalbuterol 0.63 MG/3 ML Inhal Soln UD IH SCH ×2 (07:25→13:43)
[2017-01-21 07:27] LABS: GRAN % 90.2 % (50.0-68.0); HEMATOCRIT 35.2 % (36.0-48.0); LYMPH # 0.5 (1.2-3.4); LYMPH % 5.6 % (22.0-35.0); MEAN CELL VOLUME 88.7 fl (80.0-105.0); MEAN CORPUSCULAR HEMOGLOBIN 30.7 pg (25.0-35.0); MEAN CORPUSCULAR HGB CONC 34.7 g/dl (31.0-37.0); MEAN PLATELET VOLUME 7.7 fl (7.0-11.0); MONO # 0.4 (0.1-0.6); MONO % 4.2 % (1.0-6.0); PLATELET COUNT 264 10^3/uL (120.0-450.0); RED CELL DISTRIBUTION WIDTH 15.7 % (11.5-14.5); WHITE BLOOD COUNT 8.5 10^3/ul (4.5-11.0)
[2017-01-21 07:41] LABS: ALB/GLOB RATIO 1.1 (1.1-1.8); ALKALINE PHOSPHATASE 93 U/L (38-126); ALT/SGPT 50 U/L (7-56); AST/SGOT 59 U/L (14-36); BILIRUBIN,TOTAL 0.6 mg/dL (0.2-1.3); BLOOD UREA NITROGEN 13 mg/dL (7-21); CALCIUM 9.3 mg/dL (8.4-10.5); CARBON DIOXIDE 25 mmol/L (21-33); CHLORIDE 100 mmol/L (98-107); GFR AFRICAN-AMERICAN > 60; GLUCOSE,RANDOM 162 mg/dL (70-110); POTASSIUM 4.7 mmol/L (3.6-5.0); SODIUM 134 mmol/L (132-148); TOTAL PROTEIN 6.8 g/dL (5.8-8.3)
--- NOTE | 2017-01-21 09:16 | PN ---
DATE: 01/21/2017 SUBJECTIVE: The patient appears very comfortable this morning. She is not short of breath at rest. PHYSICAL EXAMINATION: VITAL SIGNS: Temperature is 97.9, pulse 90, respirations 18, blood pressure 131/79. Oxygen saturation on room air is 95%. HEENT: Normocephalic, atraumatic. NECK: No JVD. CARDIOVASCULAR: Positive S1, S2. No S3 gallop. LUNGS: Improved breath sounds at the bases. Very minimal/less rhonchi. No wheezing. EXTREMITIES: Mild edema. No cyanosis. No clubbing. Calves are nontender to palpation. GI: Abdomen is soft, nontender, and nondistended. Bowel sounds are positive. SKIN: No acute rash. NEUROLOGIC: Exam limited at the present time. IMPRESSION: 1. Acute bronchitis. 2. Chronic obstructive pulmonary disease. 3. Allergic rhinitis. 4. Hyponatremia. PLAN: The patient appears very comfortable this morning. She is not short of breath at rest. Her postnasal drip is better. She states to feeling much better overall. On physical exam, only minimal bronchospasm is noted. In addition, the oxygen saturation on room air is now 95%. I will continue with the current nebulizer treatments, and change to oral steroids this morning. I will also continue with the nasal steroids. Input by Renal is noted. Repeat a.m. labs are pending. Clinical status of the patient is significantly improved. I will discuss the above with the attending physician. Alli Turner MD MTDD
[2017-01-21] MEDS: diltiaZEM 180 mg/24 Hours CD Cap PO SCH (09:42)
[2017-01-21] MEDS: levoFLOXacin 500 MG TAB PO SCH (09:44)
[2017-01-21] MEDS: guaiFENesin 100 mg/5 ml Syrup UD PO PRN ×2 (09:48→17:45)
[2017-01-21 10:00] LABS: ANISOCYTOSIS SLIGHT; NEUTROPHIL 90 % (50.0-70.0); PLATELET ESTIMATE NORMAL (NORMAL)
[2017-01-21] MEDS: Non Formulary Medication (Fluticasone Furoate [Arnuity Ellipta] 1 PUFF) IH SCH (10:44)
[2017-01-21] MEDS: Fluticasone Nasal 50 mcg/Spray NS SCH (12:07)
--- NOTE | 2017-01-21 12:45 | CP.PCM.PN ---
Subjective - Date & Time of Evaluation Date of Evaluation: 01/21/17 Time of Evaluation: 12:40 - Subjective Subjective: 66 yo F w/ pmh of htn, hypothyroidism, admitted with acute bronchitis and hyponatremia; Patient found to be hypoxic on RA yesterday; otherwise still coughing but improved; Objective - Vital Signs/Intake and Output Vital Signs (last 24 hours): Temp Pulse Resp BP Pulse Ox 97.5 F L 90 22 137/80 95 01/21/17 07:30 01/21/17 09:42 01/21/17 07:30 01/21/17 09:42 01/21/17 07:30 Intake and Output: 01/21/17 01/21/17 06:59 18:59 Intake Total 240 Balance 240 - Medications Medications: Current Medications Alprazolam (Xanax) 0.5 mg PO BID PRN; Protocol PRN Reason: Anxiety Last Admin: 01/20/17 22:42 Dose: 0.5 mg Diltiazem HCl (Cardizem Cd) 180 mg PO DAILY [facility] Last Admin: 01/21/17 09:42 Dose: 180 mg Fluticasone Propionate (Flonase) 1 actuation NS DAILY [facility] Last Admin: 01/21/17 12:07 Dose: 1 spray Guaifenesin (Robitussin) 100 mg PO Q8H PRN PRN Reason: Cough Last Admin: 01/21/17 09:48 Dose: 100 mg Levalbuterol HCl (Xopenex) 0.63 mg IH TIDRESP [facility] Last Admin: 01/21/17 07:25 Dose: 0.63 mg Levalbuterol HCl (Xopenex) 0.63 mg IH [id number] PRN PRN Reason: Shortness of Breath Levofloxacin (Levaquin) 500 mg PO DAILY [facility] Last Admin: 01/21/17 09:44 Dose: 500 mg Levothyroxine Sodium (Synthroid) 25 mcg PO 0600 [facility] Last Admin: 01/21/17 05:32 Dose: 25 mcg Loratadine (Claritin) 10 mg PO DAILY [facility] Last Admin: 01/21/17 09:43 Dose: 10 mg Non-Formulary Medication (Fluticasone Furoate [Arnuity Ellipta]) 1 puff IH DAILY [facility] Last Admin: 01/20/17 09:41 Dose: Not Given Pantoprazole Sodium (Protonix Ec Tab) 40 mg PO 0600 [facility] Last Admin: 01/21/17 05:31 Dose: 40 mg Prednisone (Prednisone Tab) 40 mg PO DAILY [facility] Last Admin: 01/21/17 09:44 Dose: 40 mg Sodium Chloride (Sodium Chloride Tab) 2 gm PO Q8 [facility] Last Admin: 01/21/17 05:31 Dose: 2 gm Spironolactone (Aldactone) 25 mg PO DAILY [facility] Last Admin: 01/19/17 10:03 Dose: 25 mg Valsartan (Diovan) 320 mg PO DAILY [facility] Last Admin: 01/21/17 09:48 Dose: 320 mg - Labs Labs: 01/21/17 07:22 01/21/17 07:22 - Constitutional Appears: Non-toxic, No Acute Distress - Head Exam Head Exam: NORMAL INSPECTION - Eye Exam Eye Exam: Normal appearance. absent: Scleral icterus - ENT Exam ENT Exam: Mucous Membranes Moist - Respiratory Exam Respiratory Exam: absent: Rales, Rhonchi, Respiratory Distress Additional comments: mild wheezes; - Cardiovascular Exam Cardiovascular Exam: REGULAR RHYTHM, +S1, +S2 - Extremities Exam Additional comments: no leg edema; - Neurological Exam Neurological Exam: Alert, Awake - Psychiatric Exam Psychiatric exam: Normal Affect, Normal Mood - Skin Skin Exam: Normal Color, Warm. absent: Cyanosis Assessment and Plan (1) Hyponatremia Assessment & Plan: Resolving; appears to have been secondary to volume depletion coupled with excessive PO water intake; Na rising at safe rate since yesterday; -can decrease fluid restriction to 2L/day -d/c salt tabs (making her more thirsty) Status: Acute (2) Bronchitis Assessment & Plan: Found to be hypoxic yesterday although improved today; f/u with pulm; Status: Acute (3) HTN (hypertension) Assessment & Plan: Controlled on diltiazem and valsartan; continue same; d/c aldactone (was not taking it at home); Status: Acute
[2017-01-21 16:15] VITALS: BP 133/85; PULSE 98; RESP 20; TEMP 98.1; O2SAT 93
--- NOTE | 2017-01-21 17:01 | CP.PCM.DIS ---
<Pato Lakhani - Last Filed: 01/21/17 17:01> Provider - Provider Date of Admission: 01/20/17 16:56 Attending physician: Sarahy Tatum MD Time Spent in preparation of Discharge (in minutes): 30 Hospital Course - Lab Results Lab Results: Most Recent Lab Values WBC 8.5 10^3/ul (4.5-11.0) 01/21/17 07:22 RBC 3.97 10^6/uL (3.5-6.1) 01/21/17 07:22 Hgb 12.2 g/dL (12.0-16.0) 01/21/17 07:22 Hct 35.2 % (36.0-48.0) L 01/21/17 07:22 MCV 88.7 fl (80.0-105.0) 01/21/17 07:22 MCH 30.7 pg (25.0-35.0) 01/21/17 07:22 MCHC 34.7 g/dl (31.0-37.0) 01/21/17 07:22 RDW 15.7 % (11.5-14.5) H 01/21/17 07:22 Plt Count 264 10^3/uL (120.0-450.0) 01/21/17 07:22 MPV 7.7 fl (7.0-11.0) 01/21/17 07:22 Gran % 90.2 % (50.0-68.0) H 01/21/17 07:22 Lymph % (Auto) 5.6 % (22.0-35.0) L 01/21/17 07:22 [place] % (Auto) 4.2 % (1.0-6.0) 01/21/17 07:22 Eos % (Auto) 0.0 % (1.5-5.0) L 01/21/17 07:22 Baso % (Auto) 0.0 % (0.0-3.0) 01/21/17 07:22 Gran # 7.70 (1.4-6.5) H 01/21/17 07:22 Lymph # 0.5 (1.2-3.4) L 01/21/17 07:22 [place] # 0.4 (0.1-0.6) 01/21/17 07:22 Eos # 0.0 (0.0-0.7) 01/21/17 07:22 Baso # 0.00 K/mm3 (0.0-2.0) 01/21/17 07:22 Neutrophils % (Manual) 90 % (50.0-70.0) H 01/21/17 07:22 Lymphocytes % (Manual) 6 % (22.0-35.0) L 01/21/17 07:22 Monocytes % (Manual) 4 % (1.0-6.0) 01/21/17 07:22 Platelet Evaluation Normal (NORMAL) 01/21/17 07:22 Anisocytosis (manual) Slight 01/21/17 07:22 Sodium 134 mmol/L (132-148) 01/21/17 07:22 Potassium 4.7 mmol/L (3.6-5.0) 01/21/17 07:22 Chloride 100 mmol/L (98-107) 01/21/17 07:22 Carbon Dioxide 25 mmol/L (21-33) 01/21/17 07:22 Anion Gap 14 (10-20) 01/21/17 07:22 BUN 13 mg/dL (7-21) 01/21/17 07:22 Creatinine 0.5 mg/dL (0.5-1.4) 01/21/17 07:22 Est GFR ( Amer) > 60 01/21/17 07:22 Est GFR (Non-Af Amer) > 60 01/21/17 07:22 Random Glucose 162 mg/dL (70-110) H 01/21/17 07:22 Serum Osmolality 282 mosm/kg (272-300) 01/19/17 09:00 Calcium 9.3 mg/dL (8.4-10.5) 01/21/17 07:22 Phosphorus 2.7 mg/dL (2.5-4.5) 01/18/17 22:50 Magnesium 1.7 mg/dL (1.7-2.2) 01/18/17 22:50 Total Bilirubin 0.6 mg/dL (0.2-1.3) 01/21/17 07:22 AST 59 U/L (14-36) H D 01/21/17 07:22 ALT 50 U/L (7-56) 01/21/17 07:22 Alkaline Phosphatase 93 U/L (38-126) 01/21/17 07:22 NT-Pro-B Natriuret Pep 306 pg/mL (0-450) 01/18/17 22:50 Total Protein 6.8 g/dL (5.8-8.3) 01/21/17 07:22 Albumin 3.6 g/dL (3.0-4.8) 01/21/17 07:22 Globulin 3.2 gm/dL 01/21/17 07:22 Albumin/Globulin Ratio 1.1 (1.1-1.8) 01/21/17 07:22 Triglycerides 70 mg/dL (35-160) 01/19/17 09:00 Cholesterol 168 mg/dL (130-200) 01/19/17 09:00 LDL Cholesterol Direct 93 mg/dL (0-129) 01/19/17 09:00 HDL Cholesterol 55 mg/dL (29-60) 01/19/17 09:00 TSH 3rd Generation 0.69 mIU/mL (0.46-4.68) 01/19/17 09:00 Urine Osmolality 668 mosm/kg (300-1000) 01/20/17 11:10 Ur Random Sodium 20 meq/L 01/20/17 11:10 - Hospital Course Hospital Course: Pt is a 66F with PMHx of asthmatic bronchitis, seasona allergies, hypertension hypothyroidism, anxiety, transaminitis, ETOH abuse who was admitted for intermittent cough that began one month ago. CXR was negative. Pt had desaturated to 86% during ambulation. Continuous oxygen during stay while on steroids. Patient progressively got better. During hospital course pt also had 2 days of hyponatremiea. Nephrology was consulted, and suggests fluid restriction on the patient. Hyponatremia resolved during stay. On day of discharge pt did a 6min walk test and was saturating between 90-94%. Pt to be discharged home on tapering dose of steroids and Antibiotics. - Date & Time of H&P Date of H&P: 01/19/17 Discharge Exam - Head Exam Head Exam: NORMAL INSPECTION - Eye Exam Eye Exam: EOMI. absent: Scleral icterus - ENT Exam ENT Exam: Mucous Membranes Moist - Respiratory Exam Respiratory Exam: NORMAL BREATHING PATTERN. absent: Accessory Muscle Use, Respiratory Distress - Cardiovascular Exam Cardiovascular Exam: +S1, +S2. absent: Bradycardia, Tachycardia - GI/Abdominal Exam GI & Abdominal Exam: Normal Bowel Sounds, Soft. absent: Distended, Firm, Guarding, Hernia, Rigid, Tenderness - Extremities Exam Extremities exam: normal inspection - Back Exam Back exam: absent: CVA tenderness (L), CVA tenderness (R) - Neurological Exam Neurological exam: Alert, Oriented x3 - Psychiatric Exam Psychiatric exam: Normal Affect - Skin Skin Exam: Normal Color, Warm Discharge Plan - Discharge Medications Prescriptions: levoFLOXacin [Levaquin] 500 mg PO DAILY 5 Days #5 tab - Follow Up Plan Condition: STABLE Disposition: HOME/ ROUTINE Instructions: Pneumococcal Vaccine for Adults (DC), Hyponatremia (DC), Influenza Vaccine (DC), Acute Bronchitis (GEN), COPD (Chronic Obstructive Pulmonary Disease) (DC), Chronic Hypertension (DC), Fall Prevention (DC) Additional Instructions: take antibiotics one a day for 5 days. finish the entire prescription. taper steroids. will need to take 20mg for 3 days, then 10mg the next 3days, followed by 5mg the last 3 days. Follow up with your primary care doctor within one week. If symptoms worsen or develop new symptoms go to the ER <Arcadio ELIZONDO,[facility] - Last Filed: 01/22/17 11:34> Provider - Provider Date of Admission: 01/20/17 16:56 Attending physician: Sarahy Tatum MD Time Spent in preparation of Discharge (in minutes): 35 Hospital Course - Lab Results Lab Results: Most Recent Lab Values WBC 8.5 10^3/ul (4.5-11.0) 01/21/17 07:22 RBC 3.97 10^6/uL (3.5-6.1) 01/21/17 07:22 Hgb 12.2 g/dL (12.0-16.0) 01/21/17 07:22 Hct 35.2 % (36.0-48.0) L 01/21/17 07:22 MCV 88.7 fl (80.0-105.0) 01/21/17 07:22 MCH 30.7 pg (25.0-35.0) 01/21/17 07:22 MCHC 34.7 g/dl (31.0-37.0) 01/21/17 07:22 RDW 15.7 % (11.5-14.5) H 01/21/17 07:22 Plt Count 264 10^3/uL (120.0-450.0) 01/21/17 07:22 MPV 7.7 fl (7.0-11.0) 01/21/17 07:22 Gran % 90.2 % (50.0-68.0) H 01/21/17 07:22 Lymph % (Auto) 5.6 % (22.0-35.0) L 01/21/17 07:22 [place] % (Auto) 4.2 % (1.0-6.0) 01/21/17 07:22 Eos % (Auto) 0.0 % (1.5-5.0) L 01/21/17:22 Baso % (Auto) 0.0 % (0.0-3.0) 01/21/17 07:22 Gran # 7.70 (1.4-6.5) H 01/21/17 07:22 Lymph # 0.5 (1.2-3.4) L 01/21/17: [place] # 0.4 (0.1-0.6) 01/21/17 07: Eos # 0.0 (0.0-0.7) 01/21/17 07: Baso # 0.00 K/mm3 (0.0-2.0) 01/21/17 07:22 Neutrophils % (Manual) 90 % (50.0-70.0) H 01/21/17 07:22 Lymphocytes % (Manual) 6 % (22.0-35.0) L 01/21/17 07: Monocytes % (Manual) 4 % (1.0-6.0) 01/21/17 07:22 Platelet Evaluation Normal (NORMAL) 01/21/17 07: Anisocytosis (manual) Slight 01/21/17 07:22 Sodium 134 mmol/L (132-148) 01/21/17: Potassium 4.7 mmol/L (3.6-5.0) 01/21/17 07: Chloride 100 mmol/L (98-107) 01/21/17 07: Carbon Dioxide 25 mmol/L (21-33) 01/21/17 07:22 Anion Gap 14 (10-20) 01/21/17 07:22 BUN 13 mg/dL (7-21) 01/21/17 07:22 Creatinine 0.5 mg/dL (0.5-1.4) 01/21/17 07:22 Est GFR ( Amer) > 60 01/21/17 07:22 Est GFR (Non-Af Amer) > 60 01/21/17 07:22 Random Glucose 162 mg/dL (70-110) H 01/21/17 07:22 Serum Osmolality 282 mosm/kg (272-300) 01/19/17 09:00 Calcium 9.3 mg/dL (8.4-10.5) 01/21/17 07:22 Phosphorus 2.7 mg/dL (2.5-4.5) 01/18/17 22:50 Magnesium 1.7 mg/dL (1.7-2.2) 01/18/17 22:50 Total Bilirubin 0.6 mg/dL (0.2-1.3) 01/21/17 07:22 AST 59 U/L (14-36) H D 01/21/17 07:22 ALT 50 U/L (7-56) 01/21/17 07:22 Alkaline Phosphatase 93 U/L (38-126) 01/21/17 07:22 NT-Pro-B Natriuret Pep 306 pg/mL (0-450) 01/18/17 22:50 Total Protein 6.8 g/dL (5.8-8.3) 01/21/17 07:22 Albumin 3.6 g/dL (3.0-4.8) 01/21/17 07:22 Globulin 3.2 gm/dL 01/21/17 07:22 Albumin/Globulin Ratio 1.1 (1.1-1.8) 01/21/17 07:22 Triglycerides 70 mg/dL (35-160) 01/19/17 09:00 Cholesterol 168 mg/dL (130-200) 01/19/17 09:00 LDL Cholesterol Direct 93 mg/dL (0-129) 01/19/17 09:00 HDL Cholesterol 55 mg/dL (29-60) 01/19/17 09:00 TSH 3rd Generation 0.69 mIU/mL (0.46-4.68) 01/19/17 09:00 Urine Osmolality 668 mosm/kg (300-1000) 01/20/17 11:10 Ur Random Sodium 20 meq/L 01/20/17 11:10 Attending/Attestation - Attestation I have personally seen and examined this patient.: Yes I have fully participated in the care of the patient.: Yes I have reviewed all pertinent clinical information, including history, physical exam and plan: Yes Notes (Text): 01/22/17 11:31 Patient was seen and examined with medical pathologist. Agreed with resident assessment and plan. 66 year old female with PMH of asthma/COPD, hypertension and hypothyroidism wasx admitted with COPD exacerbation. Her cough and wheezing has improved .She is not hypoxic, at the time of discharge. She also presented with hyponatremia which has resolved. Patient will be discharged home on tapering dose of prednisone and antibiotics.She will follow up with PCP and her Conveyor Worker. Management plan was discussed in detail with patient Education was provided.
[2017-01-21] MEDS ORDERED: Influenza Vaccine 60 mcg/0.5 mL SYR (4YR UP) IM ONE (17:15)
== END 2017-01-21 18:46 | disposition home or self-care (01) | DRG 191 ==
LOC: ED 22:16 → INTOOBSV 01-19 01:44 → ERH 01-19 01:44 → 5RSO 01-19 03:02 → OBSVTOIN 01-20 16:56
PROVIDERS: ADMIT Internal Medicine; ATTEND Internal Medicine
DX: J44.1 Chronic obstructive pulmonary disease with (acute) exacerbation (principal); R09.02 Hypoxemia; J44.0 Chronic obstructive pulmonary disease with (acute) lower respiratory infection; J20.9 Acute bronchitis, unspecified; E87.1 Hypo-osmolality and hyponatremia; I10 Essential (primary) hypertension; E03.9 Hypothyroidism, unspecified; F41.9 Anxiety disorder, unspecified; E87.6 Hypokalemia; F10.10 Alcohol abuse, uncomplicated; Z91.81 History of falling

== ENCOUNTER 2017-03-23 22:27 | Inpatient (IN) | payer MEDICARE ==
[2017-03-23 22:28] VITALS: BMI 40.7
[2017-03-23] MEDS ORDERED: Oxycodone/Acetaminophen 5/325 mg Tab PO STA (22:55)
[2017-03-24] MEDS ORDERED: Etomidate 20 mg/10ml Inj IVP STA (00:03)
--- NOTE | 2017-03-24 01:07 | ED PDOC ---
Arrival/HPI - General Historian: Patient <Serge Peguero A - Last Filed: 03/24/17 02:28> <Poncho Easley - Last Filed: 03/24/17 02:35> - General Chief Complaint: Trauma Time Seen by Provider: 03/23/17 22:47 - History of Present Illness Narrative History of Present Illness (Text): 03/24/17 01:04 67yo female with PMHx of hypertension, COPD who present with complaint of left shoulder pain and b/l LE weakness s/p trauma. Notes that she felt lightheaded, missed a step, fell and landed on her left shoulder. states she started having b /l LE weakness s/p and was unable to bear weight. She denies hitting her head. Denies LOC, nausea, vomiting, any other complaint. (Serge Peguero A) Past Medical History - Provider Review Nursing Documentation Reviewed: Yes - Cardiac Hx Cardiac Disorders: Yes Hx Hypotension: Yes Hx Pacemaker: No - Pulmonary Hx Respiratory Disorders: Yes Hx Asthma: Yes Hx Bronchitis: Yes - Neurological Hx Paralysis: No - Renal Hx Renal Disorder: No - Endocrine/Metabolic Hx Endocrine Disorders: No - Hematological/Oncological Hx Blood Disorders: No - Integumentary Hx Dermatological Disorder: No - Musculoskeletal/Rheumatological Hx Musculoskeletal Disorders: Yes Hx Falls: No - Gastrointestinal Hx Gastrointestinal Disorders: Yes Other/Comment: liver damage - Psychiatric Hx Anxiety: Yes Hx Emotional Abuse: No Hx Physical Abuse: No Hx Substance Use: No - Surgical History Hx Orthopedic Surgery: Yes (multiple surgeries ) Other/Comment: pt has metal in right ankle - Anesthesia Hx Anesthesia Reactions: No Hx Malignant Hyperthermia: No - Suicidal Assessment Feels Threatened In Home Enviroment: No <Serge Peguero A - Last Filed: 03/24/17 02:28> Family/Social History - Physician Review Nursing Documentation Reviewed: Yes Family/Social History: Unknown Family HX Smoking Status: Never Smoked Hx Alcohol Use: Yes Hx Substance Use: No <Serge Peguero A - Last Filed: 03/24/17 02:28> Allergies/Home Meds <Serge Peguero A - Last Filed: 03/24/17 02:28> <Poncho Easley - Last Filed: 03/24/17 02:35> Allergies/Adverse Reactions: Allergies No Known Allergies Allergy (Verified 12/13/11 09:48) Home Medications: Home Meds Medication Instructions Recorded Confirmed Alprazolam [Xanax] 0.5 mg PO BID PRN 01/18/17 03/24/17 Dextromethorphan Polistirex 10 mg PO Q12 PRN 01/18/17 03/24/17 [Delsym] Fluticasone Furoate [Arnuity 1 puff IH DAILY 01/18/17 03/24/17 Ellipta] Levalbuterol Tartrate 2 puff IH PRN PRN 01/18/17 03/24/17 [Levalbuterol Tartrate Hfa] Levothyroxine [Synthroid] 25 mcg PO DAILY 01/18/17 03/24/17 Spironolactone [Aldactone] 25 mg PO DAILY 01/18/17 03/24/17 Valsartan 320 mg PO DAILY 01/18/17 03/24/17 [id number] [Cardizem] 180 mg PO DAILY 01/18/17 03/24/17 Physical Exam Vital Signs Reviewed: Yes Temperature: Afebrile Blood Pressure: Normal Pulse: Regular Respiratory Rate: Normal Appearance: Positive for: Well-Appearing, Non-Toxic, Comfortable, Other ( Mornidly obese) Pain Distress: None Mental Status: Positive for: Alert and Oriented X 3 - Systems Exam Head: Present: Atraumatic, Normocephalic Pupils: Present: PERRL Extroacular Muscles: Present: EOMI Conjunctiva: Present: Normal Mouth: Present: Moist Mucous Membranes Neck: Present: Normal Range of Motion Respiratory/Chest: Present: Clear to Auscultation, Good Air Exchange. No: Respiratory Distress, Accessory Muscle Use Cardiovascular: Present: Regular Rate and Rhythm, Normal S1, S2. No: Murmurs Abdomen: Present: Normal Bowel Sounds. No: Tenderness, Distention, Peritoneal Signs Back: Present: Normal Inspection Upper Extremity: Present: NORMAL PULSES, Tenderness (Left proximal/Ac shoulder) , Neurovascularly Intact, Deformity (LEft shoulder). No: Cyanosis, Edema, Normal ROM (Limited on all planes secondary to pain), Swelling Lower Extremity: Present: NORMAL PULSES, Normal ROM, Neurovascularly Intact, Other (7.0cm linear laceration noted to right knee). No: Edema, Tenderness, Swelling Neurological: Present: GCS=15, CN II-XII Intact, Speech Normal, Motor Func Grossly Intact, Normal Sensory Function, Normal Cerebellar Funct, Norm Deep Tendon Reflexes, Memory Normal, Other (No focal neurological deficit) Skin: Present: Warm, Dry, Normal Color, Laceration (7.0cm linear laceration to right anterior knee). No: Rashes Psychiatric: Present: Alert, Oriented x 3, Normal Insight, Normal Concentration <DiruHappiness A - Last Filed: 03/24/17 02:28> Vital Signs Temp Pulse Resp BP Pulse Ox 03/24/17 00:50 97.8 F 86 16 124/54 L 99 03/23/17 22:46 97.8 F 73 16 117/94 H 95 Medical Decision Making <DiruHappiness A - Last Filed: 03/24/17 02:28> - RAD Interpretation Supervisor Gate Services: ED Physician, Radiologist <Poncho Easley - Last Filed: 03/24/17 02:35> ED Course and Treatment: 03/24/17 00:30 PROCEDURE: PROCEDURAL SEDATION Performed by the emergency provider Start Time: 00:30 Consent: Informed consent, after discussion of the risks, benefits, and alternatives to the procedure, was obtained. Timeout: A timeout to verify the correct patient, procedure, and site was performed immediately prior to the procedure. Indication: Left Shoulder Reduction Mallampati Classification: 1 Patient History: History of adverse reactions involving sedation/anesthesia: No patient or family history of adverse reaction Patients H & P remains current: {YES / NO} History and Physical and Current Medication list reviewed: {YES / NO} Appropriate Candidate: Based on history and airway assessment, patient is an appropriate candidate for Moderate / Procedural Sedation: {YES / NO} Preparation: Cardiac monitoring and continuous pulse oximetry. IV access obtained. Suction immediately available at bedside. Patient Position: Supine Anesthesia: Patient was given Etomidate with appropriate sedation. See MAR for details. Post-procedure: Patient tolerated the procedure well with no immediate complications. Patient recovered from sedation uneventfully and did not require airway intervention. Post anesthesia the patient's vital signs including respiratory function, cardiovascular function, and temperature were stable. The patient's pain post anesthesia was assessed as none.The patient was assessed for nausea post-sedation and the patient denies it. At discharge patient back to baseline mental status and able to tolerate PO fluids in Emergency Department End Time: 00:40 03/24/17 00:35 PROCEDURE: REDUCTION Performed by the emergency provider Consent: Informed consent, after discussion of the risks, benefits, and alternatives to the procedure, was obtained. Timeout: A timeout to verify the correct patient, procedure, and site was performed immediately prior to the procedure. Indication: Left Shoulder Dislocation Location: Left Shoulder Sedation: Procedural Sedation with Etomidate. See MAR for details. Pre-procedure neurovascular status: Distal neurovascular status intact. Technique: Manual traction. Post-procedure neurovascular status: Distal neurovascular status remains intact. Confirmation: Post-reduction films confirm reduction. See post-procedure X-Ray interpretation. Post-procedure: Patient tolerated the procedure well with no immediate complications. The reduction site was immobilized with a shoulder immobilizer. 03/24/17 02:22 Reviewed radiology, post-reduction left shoulder X-ray confirms reduction, no acute processes. CT Head shows: Brain: No acute intracranial hemorrhage. Age-appropriate periventricular white matter disease. No edema. Ventricles: Age-appropriate ventriculomegaly. Bones: No acute displaced fracture. Sinuses: Unremarkable as visualized. No acute sinusitis. Mastoid air cells: Unremarkable as visualized. No mastoid effusion. IMPRESSION: No acute intracranial hemorrhage, or suspicious mass effect. 03/24/17 02:25 Case discussed with medical office assistant instructor cash applications representative, who is aware and agrees with plan. Case discussed with Dr. Salas, who is aware and agrees with plan. Accepts pt in to the hospitalist service. Pt will go to remote telemetry observation for near- syncope, shoulder dislocation, and knee laceration. (Poncho Easley) - Lab Interpretations Lab Results: 03/24/17 01:15 03/24/17 01:15 Lab Results 03/24/17 01:15: Sodium 129 L, Potassium 3.7, Chloride 98, Carbon Dioxide 18 L, Anion Gap 17, BUN 11, Creatinine 0.7, Est GFR ( Amer) > 60, Est GFR (Non- Af Amer) > 60, Random Glucose 113 H, Calcium 8.9, Total Bilirubin 0.8, AST 398 H D, ALT 152 H, Alkaline Phosphatase 163 H D, Lactate Dehydrogenase 1229 H, Total Creatine Kinase 144, Troponin I < 0.01, Total Protein 6.6, Albumin 3.7, Globulin 2.9, Albumin/Globulin Ratio 1.3 03/24/17 01:15: PT 12.0, INR 1.10 H, APTT 23.7 L 03/24/17 01:15: WBC 18.5 H D, RBC 4.11, Hgb 12.6, Hct 37.5, MCV 91.2, MCH 30.7, MCHC 33.6, RDW 14.7 H, Plt Count 211, MPV 7.8, Gran % 74.3 H, Lymph % (Auto) 15.3 L, [place] % (Auto) 10.1 H, Eos % (Auto) 0.2 L, Baso % (Auto) 0.1, Gran # 13.71 H, Lymph # 2.8, [place] # 1.9 H, Eos # 0.0, Baso # 0.02 - RAD Interpretation Radiology Orders: 03/23/17 22:54 SHOULDER LEFT [RAD] Stat 03/24/17 01:02 HEAD W/O CONTRAST [CT] Stat SHOULDER LEFT [RAD] Stat - Medication Orders Current Medication Orders: Discontinued Medications Etomidate (Amidate) 10 mg IVP STAT STA Stop: 03/24/17 00:04 Last Admin: 03/24/17 00:30 Dose: 10 mg Comments: given at 1230am for conscious sedation procedure IVP Administration Document 03/24/17 00:30 SC (Rec: 03/24/17 00:49 MA [id number]) Charges for Administration # of IVP Administrations 1 Ondansetron HCl (Zofran Inj) 4 mg IVP STAT STA Stop: 03/24/17 00:30 Last Admin: 03/24/17 00:25 Dose: 4 mg IVP Administration Document 03/24/17 00:25 SC (Rec: 03/24/17 00:48 MA [id number]) Charges for Administration # of IVP Administrations 1 Oxycodone/Acetaminophen (Percocet 5/325 Mg Tab) 1 tab PO STAT STA Stop: 03/23/17 22:56 Last Admin: 03/23/17 23:10 Dose: 1 tab MAR Pain Assessment Document 03/23/17 23:10 SC (Rec: 03/23/17 23:10 [id number]) Pain Reassessment Is this a pain reassessment? No Sleep Is patient sleeping during reassessment? No Presence of Pain Presence of Pain Yes Pain Scale Used Pain Scale Used Numeric Description Intensity of Pain at present 10 Re-Assess: GILDARDO Pain Assessment Document 03/24/17 00:10 SC (Rec: 03/24/17 00:49 MA [id number]) Pain Reassessment Is this a pain reassessment? Yes Sleep Is patient sleeping during reassessment? No Presence of Pain Presence of Pain Yes Pain Scale Used Pain Scale Used Numeric Description Intensity of Pain at present 3 Tetanus/Reduced Diphtheria/Acell Pertussis (Boostrix Vaccine Inj) 0.5 ml IM .ONCE ONE Stop: 03/24/17 01:12 Procedure: Wound Repair - Consent Obtained Consent obtained: Verbal - Performed by Performed by: Mid-level Provider - Indications Indication(s):: Laceration - Location Location:: Right, Knee Shape:: Linear Dimensions Length cm: 7.0 - Anesthetic Technique Anesthetic Technique: Local (10ml) - Debris Debris:: None - Irrigated Irrigated with ml of normal saline: 40 - Complexity Complexity:: Intermediate (2 layer) - Muscle repiar layer closed with Muscle repair layer closed with:: # (14), Size (4), Type (nylon), Technique ( interrupted), Wound well approximated, Abx ointment applied, Tetanus ordered - Patient tolerated procedure Patient Tolerated Procedure:: Well <Serge Peguero - Last Filed: 03/24/17 02:28> Disposition/Present on Arrival - Present on Arrival Any Indicators Present on Arrival: No History of DVT/PE: No History of Uncontrolled Diabetes: No Urinary Catheter: No History of Decub. Ulcer: No History Surgical Site Infection Following: None - Disposition Have Diagnosis and Disposition been Completed?: Yes Disposition Time: 02:30 <MarielenaHappiness A - Last Filed: 03/24/17 02:28> <Poncho Easley - Last Filed: 03/24/17 02:35> - Disposition Diagnosis: Laceration, Shoulder dislocation, Near syncope, Leukocytosis Disposition: HOSPITALIZED Patient Problems: Current Active Problems Problem Status Onset Laceration Acute Leukocytosis Acute Near syncope Acute Shoulder dislocation Acute Condition: FAIR Referrals: Israel García MD [Primary Care Provider] - Follow up with primary Forms: Q.ME (Khmer)
[2017-03-24] MEDS ORDERED: TDAP Vaccine 0.5 mL Syr IM ONE (01:11)
[2017-03-24] MEDS ORDERED: Bacitracin 500 Units/gm Oint Foilpak UD ONE (01:12)
[2017-03-24 01:27] LABS: BASO # 0.02 K/mm3 (0.0-2.0); BASO % 0.1 % (0.0-3.0); EOS % 0.2 % (1.5-5.0); GRAN # 13.71 (1.4-6.5); GRAN % 74.3 % (50.0-68.0); HEMATOCRIT 37.5 % (36.0-48.0); LYMPH # 2.8 (1.2-3.4); LYMPH % 15.3 % (22.0-35.0); MEAN CELL VOLUME 91.2 fl (80.0-105.0); MEAN CORPUSCULAR HEMOGLOBIN 30.7 pg (25.0-35.0); MEAN CORPUSCULAR HGB CONC 33.6 g/dl (31.0-37.0); MEAN PLATELET VOLUME 7.8 fl (7.0-11.0); MONO # 1.9 (0.1-0.6); MONO % 10.1 % (1.0-6.0); RED CELL DISTRIBUTION WIDTH 14.7 % (11.5-14.5); WHITE BLOOD COUNT 18.5 10^3/ul (4.5-11.0)
[2017-03-24 01:43] LABS: INR 1.1 (0.93-1.08)
[2017-03-24 01:44] LABS: PARTIAL THROMBOPLASTIN TIME 23.7 Seconds (25.1-36.5)
[2017-03-24 01:47] LABS: TROPONIN I < 0.01 ng/mL
[2017-03-24 01:53] LABS: ALB/GLOB RATIO 1.3 (1.1-1.8); ALKALINE PHOSPHATASE 163 U/L (38-126); ALT/SGPT 152 U/L (7-56); AST/SGOT 398 U/L (14-36); BILIRUBIN,TOTAL 0.8 mg/dL (0.2-1.3); BLOOD UREA NITROGEN 11 mg/dL (7-21); CALCIUM 8.9 mg/dL (8.4-10.5); CARBON DIOXIDE 18 mmol/L (21-33); CHLORIDE 98 mmol/L (98-107); GFR AFRICAN-AMERICAN > 60; GLUCOSE,RANDOM 113 mg/dL (70-110); POTASSIUM 3.7 mmol/L (3.6-5.0); SODIUM 129 mmol/L (132-148); TOTAL PROTEIN 6.6 g/dL (5.8-8.3)
--- NOTE | 2017-03-24 02:22 | CT ---
EXAM: CT Head Without Intravenous Contrast CLINICAL HISTORY: 67 years old, female; Injury or trauma; Fall; Initial encounter; Abrasion; Head, generalized; Patient HX: Head injury TECHNIQUE: Axial computed tomography images of the head/brain without intravenous contrast. All CT scans at this facility use one or more dose reduction techniques, viz.: automated exposure control; ma/kV adjustment per patient size (including targeted exams where dose is matched to indication; i.e. head); or iterative reconstruction technique. COMPARISON: No relevant prior studies available. FINDINGS: Brain: No acute intracranial hemorrhage. Age-appropriate periventricular white matter disease. No edema. Ventricles: Age-appropriate ventriculomegaly. Bones: No acute displaced fracture. Sinuses: Unremarkable as visualized. No acute sinusitis. Mastoid air cells: Unremarkable as visualized. No mastoid effusion. IMPRESSION: No acute intracranial hemorrhage, or suspicious mass effect.
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
[2017-03-24] MEDS ORDERED: Albuterol-Ipratrop 3 mg / 0.5 (3 ml) UD IH PRN (03:23)
[2017-03-24] MEDS ORDERED: Levalbuterol 1.25 MG/3 ML Inhal Soln UD IH PRN (05:16)
[2017-03-24 06:58] LABS: ALB/GLOB RATIO 1.3 (1.1-1.8); ALKALINE PHOSPHATASE 184 U/L (38-126); ALT/SGPT 180 U/L (7-56); AST/SGOT 320 U/L (14-36); BLOOD UREA NITROGEN 14 mg/dL (7-21); CALCIUM 9.1 mg/dL (8.4-10.5); CARBON DIOXIDE 21 mmol/L (21-33); CHLORIDE 97 mmol/L (98-107); GFR AFRICAN-AMERICAN > 60; GLUCOSE,RANDOM 107 mg/dL (70-110); SODIUM 128 mmol/L (132-148); TOTAL PROTEIN 6.6 g/dL (5.8-8.3)
[2017-03-24 07:11] LABS: BASO # 0.01 K/mm3 (0.0-2.0); BASO % 0.1 % (0.0-3.0); EOS % 0.1 % (1.5-5.0); GRAN # 10.19 (1.4-6.5); GRAN % 70.4 % (50.0-68.0); HEMATOCRIT 38.2 % (36.0-48.0); LYMPH # 2.9 (1.2-3.4); LYMPH % 19.7 % (22.0-35.0); MEAN CELL VOLUME 90.1 fl (80.0-105.0); MEAN CORPUSCULAR HEMOGLOBIN 30.2 pg (25.0-35.0); MEAN CORPUSCULAR HGB CONC 33.5 g/dl (31.0-37.0); MEAN PLATELET VOLUME 8.3 fl (7.0-11.0); MONO # 1.4 (0.1-0.6); MONO % 9.7 % (1.0-6.0); RED CELL DISTRIBUTION WIDTH 14.8 % (11.5-14.5); WHITE BLOOD COUNT 14.5 10^3/ul (4.5-11.0)
--- NOTE | 2017-03-24 08:41 | RAD ---
PROCEDURE: Radiographs of the Left Shoulder HISTORY: post reduction COMPARISON: Left shoulder radiographs performed 03/23/17 at 2320 hours FINDINGS: BONES: No acute displaced fracture. The distal clavicle and underlying ribs appear intact. JOINTS: No acute dislocation. High-riding humeral head may be seen in setting of chronic rotator cuff injury. SOFT TISSUES: No evidence of radiopaque foreign body. IMPRESSION: High-riding humeral head may be seen in setting of chronic rotator cuff injury.
--- NOTE | 2017-03-24 08:48 | RAD ---
PROCEDURE: Single-view left shoulder HISTORY: left shoulder pain COMPARISON: No prior. FINDINGS: BONES: No acute displaced fracture. The distal clavicle and underlying ribs appear intact. JOINTS: Anterior inferior dislocation of the humeral head. SOFT TISSUES: Soft tissue swelling. No evidence of radiopaque foreign body. IMPRESSION: Humeral head is dislocated anterior inferiorly.
[2017-03-24] MEDS: diltiaZEM 180 mg/24 Hours CD Cap PO SCH (09:34)
[2017-03-24] MEDS: Sodium Chloride 0.9% 1,000 ML IV SCH ×2 (09:38→22:04)
[2017-03-24] MEDS: FLUTICASONE FUROATE IH SCH (09:46)
--- NOTE | 2017-03-24 10:20 | RAD ---
HISTORY: r/o infiltrate COMPARISON: Chest x-ray performed 01/19/17 TECHNIQUE: Chest, one view. FINDINGS: Examination limited by habitus. External artifact obscures evaluation of the left upper lobe and right upper abdomen. LUNGS: No focal consolidation. Please note that chest x-ray has limited sensitivity for the detection of pulmonary masses. PLEURA: No significant pleural effusion identified. No definite pneumothorax . CARDIOVASCULAR: Borderline cardiomegaly. Atherosclerotic calcifications. OSSEOUS STRUCTURES: No acute osseous abnormality identified. VISUALIZED UPPER ABDOMEN: Unremarkable. OTHER FINDINGS: None. IMPRESSION: No focal consolidation, significant pleural effusion, or definite pneumothorax identified.
--- NOTE | 2017-03-24 10:21 | RAD ---
PROCEDURE: Left Ankle Radiographs. HISTORY: left ankle pain COMPARISON: None FINDINGS: BONES: Degenerative changes. No acute displaced fracture. Osteophyte anterior talus. JOINTS: No dislocation. SOFT TISSUES: Mild soft tissue swelling. No evidence of radiopaque foreign body. OTHER FINDINGS: None. IMPRESSION: Mild soft tissue swelling. Degenerative changes. No acute displaced fracture, dislocation, or significant joint effusion identified. If symptoms persist or if there is clinical concern, x-ray follow-up in 7-10 days should be considered.
[2017-03-24 15:02] LABS: URINE APPEARANCE TURBID (CLEAR); URINE BILIRUBIN SMALL (NEGATIVE); URINE BLOOD NEGATIVE (NEGATIVE); URINE COLOR YELLOW (YELLOW); URINE GLUCOSE (UA) NEGATIVE (NEGATIVE); URINE KETONE NEGATIVE (NEGATIVE); URINE LEUKOCYTE ESTERASE TRACE Leu/uL (NEGATIVE); URINE PROTEIN TRACE mg/dL (<30 mg/dL); URINE UROBILINOGEN 0.2 E.U./dL (<1 E.U./dL)
[2017-03-24 15:05] LABS: URINE EPITHELIAL CELLS MANY /hpf (0-5); URINE RBC NEGATIVE /hpf (0-2)
[2017-03-24 15:06] LABS: URINE BACTERIA TRACE (NEG)
--- NOTE | 2017-03-24 16:02 | CARD ---
APPROVED REPORT EKG Measurement Heart [id number] <Conclusion> Normal sinus rhythm Normal ECG
[2017-03-25] MEDS: Levothyroxine 25 MCG TAB PO SCH (05:23)
[2017-03-25] MEDS: Pantoprazole 40 mg EC Tab PO SCH (05:23)
[2017-03-25 06:22] LABS: BASO # 0.01 K/mm3 (0.0-2.0); BASO % 0.1 % (0.0-3.0); EOS % 0.5 % (1.5-5.0); GRAN # 4.96 (1.4-6.5); GRAN % 62.8 % (50.0-68.0); HEMATOCRIT 36.7 % (36.0-48.0); LYMPH # 1.9 (1.2-3.4); LYMPH % 23.4 % (22.0-35.0); MEAN CELL VOLUME 91.1 fl (80.0-105.0); MEAN CORPUSCULAR HEMOGLOBIN 30.3 pg (25.0-35.0); MEAN CORPUSCULAR HGB CONC 33.2 g/dl (31.0-37.0); MEAN PLATELET VOLUME 7.9 fl (7.0-11.0); MONO % 13.2 % (1.0-6.0); RED CELL DISTRIBUTION WIDTH 14.8 % (11.5-14.5); WHITE BLOOD COUNT 7.9 10^3/ul (4.5-11.0)
[2017-03-25 06:48] LABS: ALB/GLOB RATIO 1.1 (1.1-1.8); ALKALINE PHOSPHATASE 135 U/L (38-126); ALT/SGPT 104 U/L (7-56); AST/SGOT 66 U/L (14-36); BILIRUBIN,TOTAL 1.6 mg/dL (0.2-1.3); BLOOD UREA NITROGEN 10 mg/dL (7-21); CALCIUM 8.9 mg/dL (8.4-10.5); CARBON DIOXIDE 22 mmol/L (21-33); CHLORIDE 102 mmol/L (98-107); GFR AFRICAN-AMERICAN > 60; GLUCOSE,RANDOM 131 mg/dL (70-110); POTASSIUM 3.8 mmol/L (3.6-5.0); SODIUM 130 mmol/L (132-148); TOTAL PROTEIN 6.3 g/dL (5.8-8.3)
--- NOTE | 2017-03-25 07:51 | CP.PCM.PN ---
<Pau Tomas - Last Filed: 03/25/17 11:55> Subjective - Date & Time of Evaluation Date of Evaluation: 03/25/17 Time of Evaluation: 07:47 - Subjective Subjective: Pau Tomas DO, PGY-1: Hospitalist Service Patient seen and examined at bedside. Patient reports fear with ambulation and right knee pain. Nurse reports patient had a muscle spasm in the upper back secondary to trying to pull herself out of bed (important to note, patient has left arm in sling) and given Tramadol. Patient reports she does not like to take narcotics, but the tramadol helped. Otherwise, patient admits to tenderness in right patellar area where there are stitches. Objective - Vital Signs/Intake and Output Vital Signs (last 24 hours): Temp Pulse Resp BP Pulse Ox 97.6 F 102 H 21 110/51 L 94 L 03/24/17 08:09 03/25/17 06:00 03/24/17 08:09 03/24/17 08:09 03/24/17 08:09 Intake and Output: 03/25/17 03/25/17 06:59 18:59 Intake Total 1960 Output Total 500 Balance 1460 - Medications Medications: Current Medications Alprazolam (Xanax) 0.5 mg PO BID PRN; Protocol PRN Reason: Anxiety Last Admin: 03/24/17 22:03 Dose: 0.5 mg Diltiazem HCl (Cardizem Cd) 180 mg PO DAILY [facility] Last Admin: 03/24/17 09:34 Dose: 180 mg Sodium Chloride (Sodium Chloride 0.9%) 1,000 mls @ 120 mls/hr IV .Q8H20M [facility] Last Admin: 03/24/17 22:04 Dose: 120 mls/hr Levalbuterol HCl (Xopenex) 1.25 mg IH [id number] PRN PRN Reason: Shortness of Breath Levothyroxine Sodium (Synthroid) 25 mcg PO 0600 [facility] Last Admin: 03/25/17 05:23 Dose: 25 mcg Fluticasone Furoate [Arnuity Ellipta] 1 Puff (Home Med) 1 puff IH DAILY [facility] Last Admin: 03/24/17 09:46 Dose: 1 puff Ondansetron HCl (Zofran Inj) 4 mg IVP Q6H PRN PRN Reason: Nausea/Vomiting Last Admin: 03/24/17 22:04 Dose: 4 mg Pantoprazole Sodium (Protonix Ec Tab) 40 mg PO 0600 [facility] Last Admin: 03/25/17 05:23 Dose: 40 mg Pantoprazole Sodium (Protonix Inj) 40 mg IVP DAILY [facility] Last Admin: 03/24/17 09:36 Dose: 40 mg Valsartan (Diovan) 320 mg PO DAILY [facility] Last Admin: 03/24/17 09:34 Dose: 320 mg - Labs Labs: 03/25/17 05:15 03/25/17 05:15 PT 12.0 SECONDS (9.4-12.5) 03/24/17 01:15 INR 1.10 (0.93-1.08) H 03/24/17 01:15 APTT 23.7 Seconds (25.1-36.5) L 03/24/17 01:15 - Constitutional Appears: Non-toxic, No Acute Distress - Head Exam Head Exam: ATRAUMATIC, NORMOCEPHALIC - Eye Exam Eye Exam: EOMI, Normal appearance, PERRL - ENT Exam ENT Exam: Mucous Membranes Moist, Normal Oropharynx - Neck Exam Neck Exam: Normal Inspection - Respiratory Exam Respiratory Exam: Clear to Ausculation Bilateral, NORMAL BREATHING PATTERN - Cardiovascular Exam Cardiovascular Exam: RRR, +S1, +S2 - GI/Abdominal Exam GI & Abdominal Exam: Soft. absent: Guarding, Rigid, Rebound - Extremities Exam Additional comments: tissue surrounding stitiches is somewhat reddened, tender to touch, but no sheri purulence or cellulitis changes. Right knee joint is a little more swollen than left. Left shoulder in sling. - Back Exam Back Exam: NORMAL INSPECTION. absent: CVA tenderness (L), CVA tenderness (R) - Psychiatric Exam Psychiatric exam: Depressed - Skin Skin Exam: Dry, Intact, Normal Color, Warm Assessment and Plan - Assessment and Plan (Free Text) Assessment: 67 year old female with past medical history of asthma, seasonal allergies, hypertension, hypothyroidism, anxiety, transaminitis, and chronic hyponatremia and alcohol dependency abuse to the ED status post mechanical fall. Plan: 1) Left shoulder pain - Inital left shoulder X-ray showed an anterior-inferior displaced humeral head ; no fracture - Post reduction left shoulder X-ray showed high-riding humeral head which may be seen in the setting of chronic rotator cuff tear. - Patient currently in left arm sling - Physical and Occupational Therapy recommendations appreciated 2) Left ankle pain, right knee laceration - X-ray showed soft-tissue swelling and degenerative changes; no acute fracture or effusion. - Physical Therapy - Bacitracin to be applied to right knee laceration as directed 3) Hyponatremia, likely secondary to alcohol use - Na is 130, patient is currently asymptomatic 4) Transaminitis, likely secondary to alcohol use. - LFTs are trending down, will continue to monitor 5) Leukocytosis, resolved, likely reactive secondary to fall 6) Anxiety with symptoms of depression; patient would likely benefit from SSRI - defer to psychiatry 7) Hypothyroidism - Synthroid 25 mcg PO daily 8) Hypertension - Valsartan 320 mg PO Daily - Diltiazem [address] 8) GI/DVT Prophylaxis -Sequential compression device -Protonix <Sarahy Tatum - Last Filed: 03/25/17 12:28> Objective - Vital Signs/Intake and Output Vital Signs (last 24 hours): Temp Pulse Resp BP Pulse Ox 98.4 F 118 H 20 119/65 95 03/25/17 09:00 03/25/17 10:00 03/25/17 09:00 03/25/17 10:24 03/25/17 09:00 Intake and Output: 03/25/17 03/25/17 06:59 18:59 Intake Total 1960 Output Total 500 Balance 1460 - Medications Medications: Current Medications Alprazolam (Xanax) 0.5 mg PO BID PRN; Protocol PRN Reason: Anxiety Last Admin: 03/24/17 22:03 Dose: 0.5 mg Bacitracin (Bacitracin) 0 gm TOP BID [facility] Diltiazem HCl (Cardizem Cd) 180 mg PO DAILY [facility] Last Admin: 03/25/17 10:24 Dose: 180 mg Sodium Chloride (Sodium Chloride 0.9%) 1,000 mls @ 120 mls/hr IV .Q8H20M [facility] Last Admin: 03/24/17 22:04 Dose: 120 mls/hr Ciprofloxacin (Cipro 200mg/100ml D5w) 100 mls @ 67 mls/hr IVPB Q12 [facility] PRN Reason: Protocol Stop: 03/25/17 13:45 Levalbuterol HCl (Xopenex) 1.25 mg IH [id number] PRN PRN Reason: Shortness of Breath Levothyroxine Sodium (Synthroid) 25 mcg PO 0600 [facility] Last Admin: 03/25/17 05:23 Dose: 25 mcg Fluticasone Furoate [Arnuity Ellipta] 1 Puff (Home Med) 1 puff IH DAILY [facility] Last Admin: 03/25/17 10:27 Dose: Not Given Ondansetron HCl (Zofran Inj) 4 mg IVP Q6H PRN PRN Reason: Nausea/Vomiting Last Admin: 03/24/17 22:04 Dose: 4 mg Pantoprazole Sodium (Protonix Ec Tab) 40 mg PO 0600 [facility] Last Admin: 03/25/17 05:23 Dose: 40 mg Pantoprazole Sodium (Protonix Inj) 40 mg IVP DAILY [facility] Last Admin: 03/25/17 10:24 Dose: 40 mg Valsartan (Diovan) 320 mg PO DAILY [facility] Last Admin: 03/25/17 10:24 Dose: 320 mg - Labs Labs: 03/25/17 05:15 03/25/17 05:15 PT 12.0 SECONDS (9.4-12.5) 03/24/17 01:15 INR 1.10 (0.93-1.08) H 03/24/17 01:15 APTT 23.7 Seconds (25.1-36.5) L 03/24/17 01:15 Attending/Attestation - Attestation I have personally seen and examined this patient.: Yes I have fully participated in the care of the patient.: Yes I have reviewed all pertinent clinical information, including history, physical exam and plan: Yes Notes (Text): 03/25/17 12:21 67 year old female with past medical history of asthma, hypertension, hypothyroidism, anxiety and ETOH abuse who presented s/p mechanical fall. Shoulder xrays reviewed as above; patient is s/p reduction is ER. Currently in left arm sling. Continue with PT/OT. Ankle xray showed soft tissue swelling and degenerative changes; no acute fracture or effusion. PT evaluation was appreciated; recommended TCU vs HWS. PT follow up requested for today. Hyponatremia and transaminitis are improving. Leukocytosis has resolved. Possibly secondary to UTI vs reactive. Ucx is growing gram negative rods and patient was started on cipro. Patient was counselled on alcohol abstinence. Will follow up with PT recommendations. Sarahy Tatum MD Hospitalist.
[2017-03-25] MEDS: diltiaZEM 180 mg/24 Hours CD Cap PO SCH (10:24)
[2017-03-25] MEDS: FLUTICASONE FUROATE IH SCH (10:27)
--- NOTE | 2017-03-25 12:02 | CP.PCM.CON ---
<Shaniqua Lugo - Last Filed: 03/25/17 13:31> History of Present Illness - History of Present Illness History of Present Illness: This patient is a 67 year old female, seen in her hospital bed. Consult has been called due to patient's ongoing alcohol dependence and possible depression. Patient lives with her , and they have two grown children and one grandchild. She retired two years ago, and has become less and less active over time and has gained weight as a result. There are no financial issues, continues to work. Patient was admitted for a fall, she was with her when she fell and had "only had 2 or three glasses of wine" which is her minimal normal daily amount she consumes. She has never been psychiatrically hospitalized, nor has she ever been to rehab. She has seen Dr Gamboa in the past but not recently, she is on Xanax 1mg daily at bedtime from her PMD. She has been tried on various antidepressants before without success. She is aware that with daily drinking the antidepressants will not work but indicates that she does not think she is depressed and it is difficult to stop drinking as her is an alcoholic and their social life together revolves around going to a bar primarily. Patient denies being suicidal or homicidal, denies the presence of hallucinations, delusions or paranoia. 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 Diagnostic Impression: Alcohol Use Disorder Moderate to Severe, Chronic, Ongoing, Depressive Disorder Unspecified. Patient plans to follow up with AA at discharge, and to continue with her PMD for her medical needs. She is contemplating going to a therapist outpatient but declines any referrals. She was educated that disruptions in sleep, concentration, focus and mood are all indicative of depression, and the chronic alcohol use has an effect on all this as well. She declined any alcohol treatment referrals also. I will sign off on this patient, please call if she has any further needs. l Past Patient History - Past Social History Smoking Status: Never Smoked - CARDIAC Hx Cardiac Disorders: Yes Hx Hypotension: Yes Hx Pacemaker: No - PULMONARY Hx Respiratory Disorders: Yes Hx Asthma: Yes Hx Bronchitis: Yes - NEUROLOGICAL Hx Paralysis: No - RENAL Hx Chronic Kidney Disease: No - ENDOCRINE/METABOLIC Hx Endocrine Disorders: No - HEMATOLOGICAL/ONCOLOGICAL Hx Blood Disorders: No - INTEGUMENTARY Hx Dermatological Problems: No - MUSCULOSKELETAL/RHEUMATOLOGICAL Hx Musculoskeletal Disorders: Yes Hx Falls: No - GASTROINTESTINAL Hx Gastrointestinal Disorders: Yes Other/Comment: liver damage - PSYCHIATRIC Hx Anxiety: Yes Hx Emotional Abuse: No Hx Physical Abuse: No Hx Substance Use: No - SURGICAL HISTORY Hx Orthopedic Surgery: Yes (multiple surgeries ) Other/Comment: pt has metal in right ankle - ANESTHESIA Hx Anesthesia Reactions: No Hx Malignant Hyperthermia: No Meds Allergies/Adverse Reactions: Allergies Allergy/AdvReac Type Severity Reaction Status Date / Time No Known Allergies Allergy Verified 12/13/11 09:48 - Medications Medications: Current Medications Alprazolam (Xanax) 0.5 mg PO BID PRN; Protocol PRN Reason: Anxiety Last Admin: 03/24/17 22:03 Dose: 0.5 mg Bacitracin (Bacitracin) 0 gm TOP BID [facility] Diltiazem HCl (Cardizem Cd) 180 mg PO DAILY [facility] Last Admin: 03/25/17 10:24 Dose: 180 mg Sodium Chloride (Sodium Chloride 0.9%) 1,000 mls @ 120 mls/hr IV .Q8H20M [facility] Last Admin: 03/24/17 22:04 Dose: 120 mls/hr Levalbuterol HCl (Xopenex) 1.25 mg IH [id number] PRN PRN Reason: Shortness of Breath Levothyroxine Sodium (Synthroid) 25 mcg PO 0600 [facility] Last Admin: 03/25/17 05:23 Dose: 25 mcg Fluticasone Furoate [Arnuity Ellipta] 1 Puff (Home Med) 1 puff IH DAILY [facility] Last Admin: 03/25/17 10:27 Dose: Not Given Ondansetron HCl (Zofran Inj) 4 mg IVP Q6H PRN PRN Reason: Nausea/Vomiting Last Admin: 03/24/17 22:04 Dose: 4 mg Pantoprazole Sodium (Protonix Ec Tab) 40 mg PO 0600 [facility] Last Admin: 03/25/17 05:23 Dose: 40 mg Pantoprazole Sodium (Protonix Inj) 40 mg IVP DAILY [facility] Last Admin: 03/25/17 10:24 Dose: 40 mg Valsartan (Diovan) 320 mg PO DAILY [facility] Last Admin: 03/25/17 10:24 Dose: 320 mg Results - Vital Signs Recent Vital Signs: Last Vital Signs Temp 98.4 F 03/25/17 09:00 Pulse 118 H 03/25/17 10:00 Resp 20 03/25/17 09:00 BP 119/65 03/25/17 10:24 Pulse Ox 95 03/25/17 09:00 - Labs Result Diagrams: 03/25/17 05:15 03/25/17 05:15 Labs: Laboratory Results - last 24 hr 03/24/17 03/24/17 03/24/17 05:00 12:15 17:15 WBC RBC Hgb Hct MCV MCH MCHC RDW Plt Count MPV Gran % Lymph % (Auto) [place] % (Auto) Eos % (Auto) Baso % (Auto) Gran # Lymph # [place] # Eos # Baso # Sodium Potassium Chloride Carbon Dioxide Anion Gap BUN Creatinine Est GFR ( Amer) Est GFR (Non-Af Amer) Random Glucose Calcium Total Bilirubin AST ALT Alkaline Phosphatase Total Protein Albumin Globulin Albumin/Globulin Ratio Urine Color Yellow Urine Appearance Turbid Urine pH 6.0 Ur Specific [place] >= 1.030 Urine Protein Trace H Urine Glucose (UA) Negative Urine Ketones Negative Urine Blood Negative Urine Nitrate Negative Urine Bilirubin Small H Urine Urobilinogen 0.2 Ur Leukocyte Esterase Trace H Urine RBC Negative Urine WBC 5 - 10 Ur Epithelial Cells Many Urine Bacteria Trace Urine Other Mucus Urine Osmolality 536 Ur Random Sodium Ur Random Potassium Hepatitis A IgM Ab Negative Hep Bs Antigen Negative Hep B Core IgM Ab Negative Hepatitis C Antibody Negative 03/24/17 03/25/17 03/25/17 17:15 05:15 05:15 WBC 7.9 D RBC 4.03 Hgb 12.2 Hct 36.7 MCV 91.1 MCH 30.3 MCHC 33.2 RDW 14.8 H Plt Count 181 MPV 7.9 Gran % 62.8 Lymph % (Auto) 23.4 Whitman % (Auto) 13.2 H Eos % (Auto) 0.5 L Baso % (Auto) 0.1 Gran # 4.96 Lymph # 1.9 [place] # 1.0 H Eos # 0.0 Baso # 0.01 Sodium 130 L Potassium 3.8 Chloride 102 Carbon Dioxide 22 Anion Gap 10 BUN 10 Creatinine 0.6 L Est GFR ( Amer) > 60 Est GFR (Non-Af Amer) > 60 Random Glucose 131 H Calcium 8.9 Total Bilirubin 1.6 H AST 66 H D ALT 104 H Alkaline Phosphatase 135 H D Total Protein 6.3 Albumin 3.4 Globulin 2.9 Albumin/Globulin Ratio 1.1 Urine Color Urine Appearance Urine pH Ur Specific [place] Urine Protein Urine Glucose (UA) Urine Ketones Urine Blood Urine Nitrate Urine Bilirubin Urine Urobilinogen Ur Leukocyte Esterase Urine RBC Urine WBC Ur Epithelial Cells Urine Bacteria Urine Other Urine Osmolality Ur Random Sodium < 5 Ur Random Potassium 79.4 Hepatitis A IgM Ab Hep Bs Antigen Hep B Core IgM Ab Hepatitis C Antibody <Tova Camacho A - Last Filed: 03/25/17 19:29> History of Present Illness - History of Present Illness History of Present Illness: patient was seen, discussed with the nurse practitioner, patient expressed interest to talk to the therapist as outpatient, patient denied thoughts of harming herself or others, agree with LABORER SAWMILL assessment and plan Meds - Medications Medications: Current Medications Alprazolam (Xanax) 0.5 mg PO BID PRN; Protocol PRN Reason: Anxiety Last Admin: 03/24/17 22:03 Dose: 0.5 mg Bacitracin (Bacitracin) 0 gm TOP BID [facility] Last Admin: 03/25/17 17:17 Dose: 1 applic Diltiazem HCl (Cardizem Cd) 180 mg PO DAILY [facility] Last Admin: 03/25/17 10:24 Dose: 180 mg Sodium Chloride (Sodium Chloride 0.9%) 1,000 mls @ 120 mls/hr IV .Q8H20M [facility] Last Admin: 03/25/17 17:22 Dose: 120 mls/hr Levalbuterol HCl (Xopenex) 1.25 mg IH [id number] PRN PRN Reason: Shortness of Breath Levothyroxine Sodium (Synthroid) 25 mcg PO 0600 [facility] Last Admin: 03/25/17 05:23 Dose: 25 mcg Fluticasone Furoate [Arnuity Ellipta] 1 Puff (Home Med) 1 puff IH DAILY [facility] Last Admin: 03/25/17 10:27 Dose: Not Given Ondansetron HCl (Zofran Inj) 4 mg IVP Q6H PRN PRN Reason: Nausea/Vomiting Last Admin: 03/24/17 22:04 Dose: 4 mg Pantoprazole Sodium (Protonix Ec Tab) 40 mg PO 0600 [facility] Last Admin: 03/25/17 05:23 Dose: 40 mg Tramadol HCl (Ultram) 50 mg PO TID [facility] Valsartan (Diovan) 320 mg PO DAILY [facility] Last Admin: 03/25/17 10:24 Dose: 320 mg Results - Vital Signs Recent Vital Signs: Last Vital Signs Temp 98.7 F 03/25/17 16:00 Pulse 101 H 03/25/17 16:00 Resp 20 03/25/17 16:00 BP 122/61 03/25/17 16:00 Pulse Ox 95 03/25/17 16:00 - Labs Result Diagrams: 03/25/17 05:15 03/25/17 05:15
[2017-03-25] MEDS ORDERED: Ciprofloxacin 200mg/100ml D5W 100 ML IVPB SCH (12:15)
[2017-03-25] MEDS ORDERED: Oxycodone/Acetaminophen 5/325 mg Tab PO PRN (12:25)
[2017-03-25] MEDS: Bacitracin Ointment 30 GM TUBE TOP SCH ×2 (12:48→17:17)
[2017-03-25] MEDS: Sodium Chloride 0.9% 1,000 ML IV SCH (17:22)
[2017-03-26] MEDS: Sodium Chloride 0.9% 1,000 ML IV SCH ×2 (00:56→20:42)
[2017-03-26] MEDS: Pantoprazole 40 mg EC Tab PO SCH (05:59)
[2017-03-26] MEDS: Levothyroxine 25 MCG TAB PO SCH (06:00)
[2017-03-26 06:35] LABS: HEMATOCRIT 36.2 % (36.0-48.0); MEAN CELL VOLUME 92.6 fl (80.0-105.0); MEAN CORPUSCULAR HEMOGLOBIN 30.4 pg (25.0-35.0); MEAN CORPUSCULAR HGB CONC 32.9 g/dl (31.0-37.0); MEAN PLATELET VOLUME 8.1 fl (7.0-11.0); WHITE BLOOD COUNT 6.5 10^3/ul (4.5-11.0)
[2017-03-26 07:10] LABS: ALB/GLOB RATIO 1.1 (1.1-1.8); ALKALINE PHOSPHATASE 117 U/L (38-126); ALT/SGPT 89 U/L (7-56); AST/SGOT 59 U/L (14-36); BILIRUBIN,TOTAL 1.2 mg/dL (0.2-1.3); BLOOD UREA NITROGEN 6 mg/dL (7-21); CALCIUM 8.8 mg/dL (8.4-10.5); CARBON DIOXIDE 24 mmol/L (21-33); CHLORIDE 104 mmol/L (98-107); GFR AFRICAN-AMERICAN > 60; GLUCOSE,RANDOM 119 mg/dL (70-110); POTASSIUM 3.9 mmol/L (3.6-5.0); SODIUM 135 mmol/L (132-148); TOTAL PROTEIN 6.3 g/dL (5.8-8.3)
[2017-03-26] MEDS: diltiaZEM 180 mg/24 Hours CD Cap PO SCH (09:48)
[2017-03-26] MEDS ORDERED: Ciprofloxacin 400mg/200ml D5W 400 MG/200 ML BAG IVPB SCH (10:00)
[2017-03-26] MEDS: Bacitracin Ointment 30 GM TUBE TOP SCH ×2 (10:10→18:35)
[2017-03-26] MEDS: FLUTICASONE FUROATE IH SCH (10:35)
--- NOTE | 2017-03-26 18:22 | CP.PCM.PN ---
<ThomPau - Last Filed: 03/26/17 20:53> Subjective - Date & Time of Evaluation Date of Evaluation: 03/26/17 Time of Evaluation: 08:00 - Subjective Subjective: Hospitalist Service Patient seen and examined at bedside. Patient does not like seeing so many different doctors during the course of her stay. Patient is agreeable to staying three midnights in hospital in order to get into the TCU. In the meantime, patient request evaluation by orthopedist. Objective - Vital Signs/Intake and Output Vital Signs (last 24 hours): Temp Pulse Resp BP Pulse Ox 98.3 F 99 H 20 141/79 95 03/26/17 08:27 03/26/17 09:48 03/26/17 08:27 03/26/17 09:48 03/26/17 08:27 Intake and Output: 03/26/17 03/26/17 06:59 18:59 Intake Total 2055 Output Total 1350 Balance 705 - Medications Medications: Current Medications Alprazolam (Xanax) 0.5 mg PO BID PRN; Protocol PRN Reason: Anxiety Last Admin: 03/25/17 22:09 Dose: 0.5 mg Bacitracin (Bacitracin) 0 gm TOP BID [facility] Last Admin: 03/26/17 10:10 Dose: 1 applic Ciprofloxacin (Cipro) 500 mg PO Q12 [facility] PRN Reason: Protocol Diltiazem HCl (Cardizem Cd) 180 mg PO DAILY [facility] Last Admin: 03/26/17 09:48 Dose: 180 mg Heparin Sodium (Porcine) (Heparin) 5,000 units SC Q12 [facility] PRN Reason: Protocol Levalbuterol HCl (Xopenex) 1.25 mg IH [id number] PRN PRN Reason: Shortness of Breath Levothyroxine Sodium (Synthroid) 25 mcg PO 0600 [facility] Last Admin: 03/26/17 06:00 Dose: 25 mcg Fluticasone Furoate [Arnuity Ellipta] 1 Puff (Home Med) 1 puff IH DAILY [facility] Last Admin: 03/26/17 10:35 Dose: Not Given Ondansetron HCl (Zofran Inj) 4 mg IVP Q6H PRN PRN Reason: Nausea/Vomiting Last Admin: 03/26/17 09:55 Dose: 4 mg Pantoprazole Sodium (Protonix Ec Tab) 40 mg PO 0600 [facility] Last Admin: 03/26/17 05:59 Dose: 40 mg Tramadol HCl (Ultram) 50 mg PO Q8H PRN PRN Reason: Pain, moderate (4-7) Last Admin: 03/26/17 09:55 Dose: 50 mg Valsartan (Diovan) 320 mg PO DAILY [facility] Last Admin: 03/26/17 09:51 Dose: 320 mg - Labs Labs: 03/26/17 05:30 03/26/17 05:30 PT 12.0 SECONDS (9.4-12.5) 03/24/17 01:15 INR 1.10 (0.93-1.08) H 03/24/17 01:15 APTT 23.7 Seconds (25.1-36.5) L 03/24/17 01:15 - Constitutional Appears: Well, Non-toxic - Head Exam Head Exam: ATRAUMATIC, NORMOCEPHALIC - Eye Exam Eye Exam: EOMI, Normal appearance, PERRL - ENT Exam ENT Exam: Mucous Membranes Moist, Normal Oropharynx - Neck Exam Neck Exam: Normal Inspection - Respiratory Exam Respiratory Exam: Clear to Ausculation Bilateral. absent: Accessory Muscle Use , Wheezes - Cardiovascular Exam Cardiovascular Exam: RRR, +S1, +S2 - GI/Abdominal Exam GI & Abdominal Exam: Soft, Normal Bowel Sounds - Extremities Exam Extremities Exam: Normal Inspection. absent: Calf Tenderness - Back Exam Back Exam: NORMAL INSPECTION. absent: CVA tenderness (L), CVA tenderness (R) - Neurological Exam Neurological Exam: Alert, Awake, CN II-XII Intact, Oriented x3 - Psychiatric Exam Psychiatric exam: Normal Affect, Normal Mood - Skin Skin Exam: Dry, Intact, Normal Color, Warm Assessment and Plan - Assessment and Plan (Free Text) Assessment: 67 year old female with past medical history of asthma, seasonal allergies, hypertension, hypothyroidism, anxiety, transaminitis, and chronic hyponatremia and alcohol dependency abuse to the ED status post mechanical fall. Plan: 1) Left shoulder pain - Initial left shoulder X-ray showed an anterior-inferior displaced humeral head ; no fracture - Post reduction left shoulder X-ray showed high-riding humeral head which may be seen in the setting of chronic rotator cuff tear. - Patient currently in left arm sling - Physical and Occupational Therapy recommendations appreciated - Orthopedist consult placed, Dr. Crews 2) Left ankle pain, right knee laceration - X-ray showed soft-tissue swelling and degenerative changes; no acute fracture or effusion. - Physical Therapy - Bacitracin to be applied to right knee laceration as directed 3) Hyponatremia, resolved - Na today is 135 4) Transaminitis, likely secondary to alcohol use. - LFTs are trending down, almost in normal limit, will continue to monitor 5) Leukocytosis, resolved 6) Anxiety with symptoms of depression Psychiatry input acknowledged 7) Hypothyroidism - Synthroid 25 mcg PO daily 8) Hypertension - Valsartan 320 mg PO Daily - Diltiazem [address] 8) GI/DVT Prophylaxis -Sequential compression device -Protonix <Sarahy Tatum - Last Filed: 03/26/17 21:14> Objective - Vital Signs/Intake and Output Vital Signs (last 24 hours): Temp Pulse Resp BP Pulse Ox 97.9 F 99 H 18 170/81 H 97 03/26/17 16:00 03/26/17 16:00 03/26/17 16:00 03/26/17 16:00 03/26/17 16:00 - Medications Medications: Current Medications Alprazolam (Xanax) 0.5 mg PO BID PRN; Protocol PRN Reason: Anxiety Last Admin: 03/25/17 22:09 Dose: 0.5 mg Bacitracin (Bacitracin) 0 gm TOP BID [facility] Last Admin: 03/26/17 18:35 Dose: 1 applic Ciprofloxacin (Cipro) 500 mg PO Q12 [facility] PRN Reason: Protocol Last Admin: 03/26/17 21:01 Dose: 500 mg Diltiazem HCl (Cardizem Cd) 180 mg PO DAILY [facility] Last Admin: 03/26/17 09:48 Dose: 180 mg Heparin Sodium (Porcine) (Heparin) 5,000 units SC Q12 [facility] PRN Reason: Protocol Last Admin: 03/26/17 21:01 Dose: 5,000 units Levalbuterol HCl (Xopenex) 1.25 mg IH [id number] PRN PRN Reason: Shortness of Breath Levothyroxine Sodium (Synthroid) 25 mcg PO 0600 [facility] Last Admin: 03/26/17 06:00 Dose: 25 mcg Fluticasone Furoate [Arnuity Ellipta] 1 Puff (Home Med) 1 puff IH DAILY [facility] Last Admin: 03/26/17 10:35 Dose: Not Given Ondansetron HCl (Zofran Inj) 4 mg IVP Q6H PRN PRN Reason: Nausea/Vomiting Last Admin: 03/26/17 21:02 Dose: 4 mg Pantoprazole Sodium (Protonix Ec Tab) 40 mg PO 0600 [facility] Last Admin: 03/26/17 05:59 Dose: 40 mg Tramadol HCl (Ultram) 50 mg PO Q8H PRN PRN Reason: Pain, moderate (4-7) Last Admin: 03/26/17 21:01 Dose: 50 mg Valsartan (Diovan) 320 mg PO DAILY [facility] Last Admin: 03/26/17 09:51 Dose: 320 mg - Labs Labs: 03/26/17 05:30 03/26/17 05:30 PT 12.0 SECONDS (9.4-12.5) 03/24/17 01:15 INR 1.10 (0.93-1.08) H 03/24/17 01:15 APTT 23.7 Seconds (25.1-36.5) L 03/24/17 01:15 Attending/Attestation - Attestation I have personally seen and examined this patient.: Yes I have fully participated in the care of the patient.: Yes I have reviewed all pertinent clinical information, including history, physical exam and plan: Yes Notes (Text): 03/26/17 21:12 67 year old female with past medical history of asthma, hypertension and ETOH abuse who presented s/p mechanical fall. Shoulder xrays reviewed as above; patient is s/p reduction is ER. Currently in left arm sling. Continue with PT/OT. Orhopedics evaluation is requested and MRI shoulder study was ordered. Ankle xray showed soft tissue swelling and degenerative changes; no acute fracture or effusion. LE doppler was ordered. PT evaluation was appreciated who recommended to TCU evaluation. Hyponatremia has improved. Transaminitis is improving as well. Leukocytosis has resolved. Possibly secondaryto UTI vs reactive. Ucx is growing gram negative rods and patient was started on cipro. Patient was counselled on alcohol abstinence. Sarahy Tatum MD Hospitalist.
[2017-03-27 07:03] LABS: ALB/GLOB RATIO 1.1 (1.1-1.8); ALKALINE PHOSPHATASE 108 U/L (38-126); ALT/SGPT 78 U/L (7-56); AST/SGOT 67 U/L (14-36); BILIRUBIN,TOTAL 1.3 mg/dL (0.2-1.3); BLOOD UREA NITROGEN 5 mg/dL (7-21); CARBON DIOXIDE 24 mmol/L (21-33); CHLORIDE 103 mmol/L (98-107); GFR AFRICAN-AMERICAN > 60; GLUCOSE,RANDOM 114 mg/dL (70-110); POTASSIUM 3.8 mmol/L (3.6-5.0); SODIUM 133 mmol/L (132-148); TOTAL PROTEIN 6.4 g/dL (5.8-8.3)
[2017-03-27] MEDS: Levothyroxine 25 MCG TAB PO SCH (07:03)
[2017-03-27] MEDS: Pantoprazole 40 mg EC Tab PO SCH (07:03)
--- NOTE | 2017-03-27 07:20 | CP.PCM.PN ---
<Pau Tomas - Last Filed: 03/27/17 16:13> Subjective - Date & Time of Evaluation Date of Evaluation: 03/27/17 Time of Evaluation: 07:19 - Subjective Subjective: Pau Tomas DO, PGY-1, Hospitalist Service Patient seen and examined at bedside. Patient asks how long the MRI of the shoulder will take. Patient requests different arm swing. I discussed these points with the nurse and the patient. Otherwise, the patient states her pain is in well controlled and feeling more fresh. Objective - Vital Signs/Intake and Output Vital Signs (last 24 hours): Temp Pulse Resp BP Pulse Ox 97.9 F 99 H 18 170/81 H 97 03/26/17 16:00 03/26/17 16:00 03/26/17 16:00 03/26/17 16:00 03/26/17 16:00 Intake and Output: 03/27/17 03/27/17 06:59 18:59 Intake Total 600 Output Total 600 Balance 0 - Medications Medications: Current Medications Alprazolam (Xanax) 0.5 mg PO BID PRN; Protocol PRN Reason: Anxiety Last Admin: 03/26/17 23:37 Dose: 0.5 mg Bacitracin (Bacitracin) 0 gm TOP BID [facility] Last Admin: 03/26/17 18:35 Dose: 1 applic Ciprofloxacin (Cipro) 500 mg PO Q12 [facility] PRN Reason: Protocol Last Admin: 03/26/17 21:01 Dose: 500 mg Diltiazem HCl (Cardizem Cd) 180 mg PO DAILY [facility] Last Admin: 03/26/17 09:48 Dose: 180 mg Heparin Sodium (Porcine) (Heparin) 5,000 units SC Q12 [facility] PRN Reason: Protocol Last Admin: 03/26/17 21:01 Dose: 5,000 units Levalbuterol HCl (Xopenex) 1.25 mg IH [id number] PRN PRN Reason: Shortness of Breath Levothyroxine Sodium (Synthroid) 25 mcg PO 0600 [facility] Last Admin: 03/27/17 07:03 Dose: 25 mcg Fluticasone Furoate [Arnuity Ellipta] 1 Puff (Home Med) 1 puff IH DAILY [facility] Last Admin: 03/26/17 10:35 Dose: Not Given Ondansetron HCl (Zofran Inj) 4 mg IVP Q6H PRN PRN Reason: Nausea/Vomiting Last Admin: 03/26/17 21:02 Dose: 4 mg Pantoprazole Sodium (Protonix Ec Tab) 40 mg PO 0600 [facility] Last Admin: 03/27/17 07:03 Dose: 40 mg Tramadol HCl (Ultram) 50 mg PO Q8H PRN PRN Reason: Pain, moderate (4-7) Last Admin: 03/26/17 21:01 Dose: 50 mg Valsartan (Diovan) 320 mg PO DAILY [facility] Last Admin: 03/26/17 09:51 Dose: 320 mg - Labs Labs: 03/26/17 05:30 03/27/17 06:00 PT 12.0 SECONDS (9.4-12.5) 03/24/17 01:15 INR 1.10 (0.93-1.08) H 03/24/17 01:15 APTT 23.7 Seconds (25.1-36.5) L 03/24/17 01:15 - Constitutional Appears: Well, Non-toxic - Head Exam Head Exam: ATRAUMATIC, NORMOCEPHALIC - Eye Exam Eye Exam: EOMI, Normal appearance, PERRL - ENT Exam ENT Exam: Mucous Membranes Moist, Normal Oropharynx - Respiratory Exam Respiratory Exam: Wheezes (bilaterally) - Cardiovascular Exam Cardiovascular Exam: REGULAR RHYTHM, +S1, +S2 - GI/Abdominal Exam GI & Abdominal Exam: Soft, Normal Bowel Sounds - Extremities Exam Additional comments: left ankle and foot appear less swollen - Back Exam Back Exam: NORMAL INSPECTION. absent: CVA tenderness (L), CVA tenderness (R) - Neurological Exam Neurological Exam: Alert, Awake, CN II-XII Intact, Oriented x3 - Psychiatric Exam Psychiatric exam: Normal Affect, Normal Mood - Skin Skin Exam: Dry, Intact, Normal Color, Warm Assessment and Plan - Assessment and Plan (Free Text) Assessment: 67 year old female with past medical history of asthma, seasonal allergies, hypertension, hypothyroidism, anxiety, transaminitis, and chronic hyponatremia and alcohol dependency abuse to the ED status post mechanical fall. Plan: 1) Left shoulder pain MRI of left shoulder findings reveal: There is a complete tear and retraction of the rotator cuff. The humeral head is subluxed superiorly and touches the acromion. There is a large amount of edema deep to the deltoid muscle adjacent to the humeral head and neck. There is no evidence of hemorrhage. There is no marrow edema to suggest fracture. The glenoid labrum is intact. The biceps appears to be torn. Impression: Complete tear of the rotator cuff with retraction and atrophy. This is probably chronic. There is a large amount of edema deep to the deltoid muscle consistent with acute trauma. - Physical and Occupational Therapy recommendations appreciated - Orthopedist consult placed, Dr. Crews 2) Left ankle pain - X-ray showed soft-tissue swelling and degenerative changes; no acute fracture or effusion. - Physical Therapy - Bacitracin to be applied to right knee laceration as directed 3) Right knee laceration - 2 view of right knee pending 4) Transaminitis - LFTs trending down 5) Anxiety with symptoms of depression - Psychiatry rec's appreciated 6) Hypothyroidism - Synthroid 25 mcg PO daily 7) Hypertension - Valsartan 320 mg PO Daily - Diltiazem [address] 8) GI/DVT Prophylaxis - heparin 5000 SC q12h -Protonix 40 mg PO daily <Sarahy Tatum - Last Filed: 03/27/17 16:46> Objective - Vital Signs/Intake and Output Vital Signs (last 24 hours): Temp Pulse Resp BP Pulse Ox 98.6 F 100 H 22 136/75 94 L 03/27/17 06:00 03/27/17 11:44 03/27/17 06:00 03/27/17 11:44 03/27/17 06:00 Intake and Output: 03/27/17 03/27/17 06:59 18:59 Intake Total 600 200 Output Total 600 500 Balance 0 -300 - Medications Medications: Current Medications Alprazolam (Xanax) 0.5 mg PO BID PRN; Protocol PRN Reason: Anxiety Last Admin: 03/27/17 09:22 Dose: 0.5 mg Bacitracin (Bacitracin) 0 gm TOP BID [facility] Last Admin: 03/27/17 11:39 Dose: Not Given Budesonide (Pulmicort Respules) 0.5 mg IH [id number] [facility] Last Admin: 03/27/17 11:18 Dose: 0.5 mg Ciprofloxacin (Cipro) 500 mg PO Q12 [facility] PRN Reason: Protocol Last Admin: 03/27/17 11:44 Dose: 500 mg Diltiazem HCl (Cardizem Cd) 180 mg PO DAILY [facility] Last Admin: 03/27/17 11:44 Dose: 180 mg Heparin Sodium (Porcine) (Heparin) 5,000 units SC Q12 [facility] PRN Reason: Protocol Last Admin: 03/27/17 11:43 Dose: 5,000 units Levalbuterol HCl (Xopenex) 1.25 mg IH [id number] PRN PRN Reason: Shortness of Breath Last Admin: 03/27/17 11:18 Dose: 1.25 mg Levothyroxine Sodium (Synthroid) 25 mcg PO 0600 [facility] Last Admin: 03/27/17 07:03 Dose: 25 mcg Fluticasone Furoate [Arnuity Ellipta] 1 Puff (Home Med) 1 puff IH DAILY [facility] Last Admin: 03/27/17 11:40 Dose: Not Given Ondansetron HCl (Zofran Inj) 4 mg IVP Q6H PRN PRN Reason: Nausea/Vomiting Last Admin: 03/27/17 09:22 Dose: 4 mg Pantoprazole Sodium (Protonix Ec Tab) 40 mg PO 0600 [facility] Last Admin: 03/27/17 07:03 Dose: 40 mg Tramadol HCl (Ultram) 50 mg PO Q8H PRN PRN Reason: Pain, moderate (4-7) Last Admin: 03/27/17 09:22 Dose: 50 mg Valsartan (Diovan) 320 mg PO DAILY [facility] Last Admin: 03/27/17 11:43 Dose: 320 mg - Labs Labs: 03/27/17 06:00 03/27/17 06:00 PT 12.0 SECONDS (9.4-12.5) 03/24/17 01:15 INR 1.10 (0.93-1.08) H 03/24/17 01:15 APTT 23.7 Seconds (25.1-36.5) L 03/24/17 01:15 Attending/Attestation - Attestation I have personally seen and examined this patient.: Yes I have fully participated in the care of the patient.: Yes I have reviewed all pertinent clinical information, including history, physical exam and plan: Yes Notes (Text): 03/27/17 16:44 67 year old female with past medical history of asthma, hypertension and ETOH abuse who presented s/p mechanical fall. Shoulder xrays reviewed as above; patient is s/p reduction is ER. Currently in left arm sling. Orhopedics evaluation was appreciated and MRI shoulder was reviewed as above. Continue with PT/OT. Ankle xray showed soft tissue swelling and degenerative changes; no acute fracture or effusion. LE doppler and knee xray are pending. PT evaluation was appreciated who recommended to TCU evaluation. Hyponatremia has resolved. Transaminitis is improving as well. Patient is on cipro for GNR UTI. Patient was counselled on alcohol abstinence. Sarahy Tatum MD Hospitalist.
[2017-03-27 07:35] LABS: MEAN CELL VOLUME 92.8 fl (80.0-105.0); MEAN CORPUSCULAR HEMOGLOBIN 30.5 pg (25.0-35.0); MEAN CORPUSCULAR HGB CONC 32.9 g/dl (31.0-37.0); RED CELL DISTRIBUTION WIDTH 14.8 % (11.5-14.5); WHITE BLOOD COUNT 5.2 10^3/ul (4.5-11.0)
--- NOTE | 2017-03-27 08:15 | CON ---
ORTHOPEDIC CONSULTATION DATE: 03/26/2017 HISTORY OF PRESENT ILLNESS: sustained a dislocated lt shoulder dec 06 08 seen by the staff of our_ Emergency Room by the ER staff. i was called to see her today.the disloction was reduced on admiion to the Er.liliam called to do follow up her today on 03/26/2017 for the left shoulder dislocation for the followup care. X-ray showed good reduction. There is some hesitancy to move the shouldr and will does not appear to have any paresthesias. There is also a possibility rotator cuff tear, which will need to be in a sling_ for 2 weeks. Orthopedic consult now ordered MRI of the left shoulder to follow up on the possible rotator cuff tear on left shoulder and the right knee she could do forward elevation for at least 2 weeks and once for physical therapy for ambulation, quadriceps exercises to sling on the left shoulder and now reevaluate her if the MRI has done to see if there is a rotator cuff tear and even if it is torn, she said today she does not want to have any surgery. She had rt rotator cuff surgery done by somebody else. So, I will follow her here at [facility] for the left shoulder that has been treated by the er staff.to get an MRI of the left shoulder and she also _has to get therphy for her weakness . she has right knee laceration. was sutured in the ER and left ankle sprain with no fx on xray. Grant Crews DO MTDD
--- NOTE | 2017-03-27 09:30 | US ---
PROCEDURE: Left lower extremity venous US HISTORY: Leg pain and swelling. Evaluate for DVT. PHYSICIAN(S): Nathan Delaney MD. TECHNIQUE: Duplex sonography and color-flow Doppler with graded compression were used to evaluate the deep venous system of the left lower extremity. FINDINGS: The visualized deep venous system of the left lower extremity is sonographically normal and compressible. Normal wave forms and augmentation are seen. There is no sonographic evidence for deep venous thrombosis in the visualized segments of the left lower extremity. IMPRESSION: 1. No sonographic evidence for deep venous thrombosis in the visualized segments of the left lower extremity.
[2017-03-27] MEDS: Levalbuterol 1.25 MG/3 ML Inhal Soln UD IH PRN (11:18)
[2017-03-27] MEDS: Budesonide 0.5 mg/2 ml Inhal Susp UD IH SCH ×2 (11:18→20:20)
--- NOTE | 2017-03-27 11:25 | MRI ---
PROCEDURE: MRI of the left shoulder without contrast HISTORY: r/o rotator cuff tear left shoulder COMPARISON: TECHNIQUE: MRI of the left shoulder was performed in multiple planes using multiple pulse sequences. FINDINGS: There is a complete tear and retraction of the rotator cuff. The humeral head is subluxed superiorly and touches the acromion. There is a large amount of edema deep to the deltoid muscle adjacent to the humeral head and neck. There is no evidence of hemorrhage. There is no marrow edema to suggest fracture. The glenoid labrum is intact. The biceps tendon appears to be torn. IMPRESSION: Complete tear of the rotator cuff with retraction and atrophy. This is probably chronic. There is a large amount of edema deep to the deltoid muscle consistent with acute trauma.
[2017-03-27] MEDS: Bacitracin Ointment 30 GM TUBE TOP SCH ×2 (11:39→18:33)
[2017-03-27] MEDS: FLUTICASONE FUROATE IH SCH (11:40)
[2017-03-27] MEDS: diltiaZEM 180 mg/24 Hours CD Cap PO SCH (11:44)
--- NOTE | 2017-03-27 16:57 | US ---
PROCEDURE: Right lower extremity venous US HISTORY: Leg pain and swelling. Evaluate for DVT. PHYSICIAN(S): Nathan Delaney M.D. TECHNIQUE: Duplex sonography and color-flow Doppler with graded compression were used to evaluate the deep venous system of the right lower extremity. The exam is somewhat limited by edema. FINDINGS: The visualized deep venous system of the right lower extremity is sonographically normal and compressible. Normal waveforms and augmentation are seen. There is no sonographic evidence for deep venous thrombosis in the visualized segments of the right lower extremity. IMPRESSION: 1. No sonographic evidence for deep venous thrombosis in the visualized segments of the right lower extremity.
[2017-03-27 17:03] VITALS: RESP 20; O2SAT 95
--- NOTE | 2017-03-27 18:23 | RAD ---
PROCEDURE: Right Knee Radiographs. HISTORY: laceration COMPARISON: None. FINDINGS: BONES: There is diffuse bone demineralization. There is no acute displaced fracture or bone destruction. JOINTS: There is mild degenerative osteoarthrosis in the medial compartment with reduced joint space and tibial spiking. JOINT EFFUSION: None. OTHER FINDINGS: There is prepatellar subcutaneous edema. IMPRESSION: No acute fracture or dislocation.
[2017-03-28] MEDS: Pantoprazole 40 mg EC Tab PO SCH (06:07)
[2017-03-28] MEDS: Levothyroxine 25 MCG TAB PO SCH (06:07)
[2017-03-28 06:30] LABS: HEMATOCRIT 35.8 % (36.0-48.0); MEAN CELL VOLUME 93.2 fl (80.0-105.0); MEAN CORPUSCULAR HEMOGLOBIN 30.2 pg (25.0-35.0); MEAN CORPUSCULAR HGB CONC 32.4 g/dl (31.0-37.0); MEAN PLATELET VOLUME 8.1 fl (7.0-11.0); RED CELL DISTRIBUTION WIDTH 14.9 % (11.5-14.5); WHITE BLOOD COUNT 4.6 10^3/ul (4.5-11.0)
[2017-03-28 07:50] LABS: POTASSIUM 3.8 mmol/L (3.6-5.0)
[2017-03-28 08:00] VITALS: BP 134/72; PULSE 90; TEMP 98.2
[2017-03-28 08:15] LABS: ALB/GLOB RATIO 1.1 (1.1-1.8); ALKALINE PHOSPHATASE 104 U/L (38-126); ALT/SGPT 80 U/L (7-56); AST/SGOT 71 U/L (14-36); BILIRUBIN,TOTAL 1.2 mg/dL (0.2-1.3); BLOOD UREA NITROGEN 6 mg/dL (7-21); CALCIUM 9.2 mg/dL (8.4-10.5); CARBON DIOXIDE 26 mmol/L (21-33); CHLORIDE 101 mmol/L (98-107); GFR AFRICAN-AMERICAN > 60; GLUCOSE,RANDOM 105 mg/dL (70-110); SODIUM 135 mmol/L (132-148); TOTAL PROTEIN 6.4 g/dL (5.8-8.3)
[2017-03-28] MEDS: Budesonide 0.5 mg/2 ml Inhal Susp UD IH SCH (08:28)
[2017-03-28] MEDS: Levalbuterol 1.25 MG/3 ML Inhal Soln UD IH PRN (08:28)
--- NOTE | 2017-03-28 09:49 | CP.PCM.DIS ---
<Pau Tomas - Last Filed: 03/28/17 13:34> Provider - Provider Date of Admission: 03/25/17 16:14 Attending physician: Sarahy Tatum MD Primary care physician: Israel García MD Consults: Dr. Crews Orthopedist Time Spent in preparation of Discharge (in minutes): 45 Hospital Course - Lab Results Lab Results: Most Recent Lab Values WBC 4.6 10^3/ul (4.5-11.0) 03/28/17 05:40 RBC 3.84 10^6/uL (3.5-6.1) 03/28/17 05:40 Hgb 11.6 g/dL (12.0-16.0) L 03/28/17 05:40 Hct 35.8 % (36.0-48.0) L 03/28/17 05:40 MCV 93.2 fl (80.0-105.0) 03/28/17 05:40 MCH 30.2 pg (25.0-35.0) 03/28/17 05:40 MCHC 32.4 g/dl (31.0-37.0) 03/28/17 05:40 RDW 14.9 % (11.5-14.5) H 03/28/17 05:40 Plt Count 186 10^3/uL (120.0-450.0) 03/28/17 05:40 MPV 8.1 fl (7.0-11.0) 03/28/17 05:40 Gran % 62.8 % (50.0-68.0) 03/25/17 05:15 Lymph % (Auto) 23.4 % (22.0-35.0) 03/25/17 05:15 [place] % (Auto) 13.2 % (1.0-6.0) H 03/25/17 05:15 Eos % (Auto) 0.5 % (1.5-5.0) L 03/25/17 05:15 Baso % (Auto) 0.1 % (0.0-3.0) 03/25/17 05:15 Gran # 4.96 (1.4-6.5) 03/25/17 05:15 Lymph # 1.9 (1.2-3.4) 03/25/17 05:15 [place] # 1.0 (0.1-0.6) H 03/25/17 05:15 Eos # 0.0 (0.0-0.7) 03/25/17 05:15 Baso # 0.01 K/mm3 (0.0-2.0) 03/25/17 05:15 PT 12.0 SECONDS (9.4-12.5) 03/24/17 01:15 INR 1.10 (0.93-1.08) H 03/24/17 01:15 APTT 23.7 Seconds (25.1-36.5) L 03/24/17 01:15 Sodium 135 mmol/L (132-148) 03/28/17 05:40 Potassium 3.8 mmol/L (3.6-5.0) 03/28/17 05:40 Chloride 101 mmol/L (98-107) 03/28/17 05:40 Carbon Dioxide 26 mmol/L (21-33) 03/28/17 05:40 Anion Gap 10 (10-20) 03/27/17 06:00 BUN 6 mg/dL (7-21) L 03/28/17 05:40 Creatinine 0.6 mg/dl (0.7-1.2) L 03/28/17 05:40 Est GFR ( Amer) > 60 03/28/17 05:40 Est GFR (Non-Af Amer) > 60 03/28/17 05:40 Random Glucose 105 mg/dL (70-110) 03/28/17 05:40 Serum Osmolality 272 mosm/kg (272-300) 03/24/17 05:00 Calcium 9.2 mg/dL (8.4-10.5) 03/28/17 05:40 Total Bilirubin 1.2 mg/dL (0.2-1.3) 03/28/17 05:40 AST 71 U/L (14-36) H 03/28/17 05:40 ALT 80 U/L (7-56) H 03/28/17 05:40 Alkaline Phosphatase 104 U/L (38-126) 03/28/17 05:40 Lactate Dehydrogenase 1229 U/L (333-699) H 03/24/17 01:15 Total Creatine Kinase 144 U/L (35-230) 03/24/17 01:15 Troponin I < 0.01 ng/mL 03/24/17 01:15 Total Protein 6.4 g/dL (5.8-8.3) 03/28/17 05:40 Albumin 3.4 g/dL (3.0-4.8) 03/28/17 05:40 Globulin 3.0 gm/dL 03/28/17 05:40 Albumin/Globulin Ratio 1.1 (1.1-1.8) 03/28/17 05:40 Urine Color Yellow (YELLOW) 03/24/17 12:15 Urine Appearance Turbid (CLEAR) 03/24/17 12:15 Urine pH 6.0 (4.7-8.0) 03/24/17 12:15 Ur Specific [place] >= 1.030 (1.005-1.035) 03/24/17 12:15 Urine Protein Trace mg/dL (<30 mg/dL) H 03/24/17 12:15 Urine Glucose (UA) Negative mg/dL (NEGATIVE) 03/24/17 12:15 Urine Ketones Negative mg/dL (NEGATIVE) 03/24/17 12:15 Urine Blood Negative (NEGATIVE) 03/24/17 12:15 Urine Nitrate Negative (NEGATIVE) 03/24/17 12:15 Urine Bilirubin Small (NEGATIVE) H 03/24/17 12:15 Urine Urobilinogen 0.2 E.U./dL (<1 E.U./dL) 03/24/17 12:15 Ur Leukocyte Esterase Trace Monty/uL (NEGATIVE) H 03/24/17 12:15 Urine RBC Negative /hpf (0-2) 03/24/17 12:15 Urine WBC 5 - 10 /hpf (0-6) 03/24/17 12:15 Ur Epithelial Cells Many /hpf (0-5) 03/24/17 12:15 Urine Bacteria Trace (NEG) 03/24/17 12:15 Urine Other Mucus 03/24/17 12:15 Urine Osmolality 536 mosm/kg (300-1000) 03/24/17 17:15 Ur Random Sodium < 5 meq/L 03/24/17 17:15 Ur Random Potassium 79.4 meq/L 03/24/17 17:15 Alcohol, Quantitative < 10 mg/dL (0-10) 03/24/17 05:00 Hepatitis A IgM Ab Negative (NEGATIVE) 03/24/17 05:00 Hep Bs Antigen Negative (NEGATIVE) 03/24/17 05:00 Hep B Core IgM Ab Negative (NEGATIVE) 03/24/17 05:00 Hepatitis C Antibody Negative (NEGATIVE) 03/24/17 05:00 - Hospital Course Hospital Course: 67 year old female with past medical history of asthma, hypertension, alcohol use disorder who presented to [facility] [place] s/p mechanical fall with complaints of left shoulder, right knee, and left ankle pain. Diagnostic testing revealed elevated LFTs, hyponatremia, and equivocal results of a UTI. Imaging of the left shoulder showed an anterior-inferior dislocation of the humeral head. Otherwise , imaging of the left ankle and right knee were negative for any acute fracture or dislocation. The left shoulder was manually reduced in the ED and placed in a sling. The right knee had a superficial laceration that was cleaned and stitched in the ED. Physical therapy, psychiatry, and orthopedic consults were placed. MRI of the left shoulder showed complete tear of the rotator cuff with retraction and atrophy and a large amount of edema deep to the deltoid muscle consistent with acute trauma. Furthermore, during the patient's hospital stay she was counselled on alcohol abstinence and was medically optimized to undergo rehabilitation in the Transitional Care Unit. - Date & Time of H&P Date of H&P: 03/28/17 Time of H&P: 10:12 Discharge Exam - Head Exam Head Exam: ATRAUMATIC, NORMOCEPHALIC - Eye Exam Eye Exam: EOMI, Normal appearance - ENT Exam ENT Exam: Mucous Membranes Moist, Normal Oropharynx - Neck Exam Neck exam: Normal Inspection - Respiratory Exam Respiratory Exam: Clear to PA & Lateral, NORMAL BREATHING PATTERN, UNREMARKABLE - Cardiovascular Exam Cardiovascular Exam: RRR, +S1, +S2 - GI/Abdominal Exam GI & Abdominal Exam: Normal Bowel Sounds. absent: Guarding, Rigid - Extremities Exam Additional comments: right infrapatellar area shows a healing laceration with stitches in place and no erythema or fluctuance. - Back Exam Back exam: NORMAL INSPECTION. absent: CVA tenderness (L), CVA tenderness (R) - Neurological Exam Neurological exam: Alert, CN II-XII Intact, Oriented x3 - Psychiatric Exam Psychiatric exam: Normal Affect, Normal Mood - Skin Skin Exam: Dry, Intact, Normal Color, Warm Discharge Plan - Follow Up Plan Condition: FAIR Disposition: TRANSF TO SNF Instructions: Shoulder Dislocation (DC), Depression (DC), Near Syncope (ED) Additional Instructions: 1) Patient to follow up with PMD within the next week of formal discharge. 2) Patient to continue wearing left shoulder sling for 3 weeks total, unless otherwise indicated by Dr. Crews. 3) Patient to take any medication prescribed, as directed. 4) Patient to return to nearest ED for any worsening of symptoms. Referrals: Israel García MD [Primary Care Provider] - <Sarahy Tatum - Last Filed: 03/28/17 14:31> Provider - Provider Date of Admission: 03/25/17 16:14 Attending physician: Sarahy Tatum MD Primary care physician: Israel García MD Hospital Course - Lab Results Lab Results: Most Recent Lab Values WBC 4.6 10^3/ul (4.5-11.0) 03/28/17 05:40 RBC 3.84 10^6/uL (3.5-6.1) 03/28/17 05:40 Hgb 11.6 g/dL (12.0-16.0) L 03/28/17 05:40 Hct 35.8 % (36.0-48.0) L 03/28/17 05:40 MCV 93.2 fl (80.0-105.0) 03/28/17 05:40 MCH 30.2 pg (25.0-35.0) 03/28/17 05:40 MCHC 32.4 g/dl (31.0-37.0) 03/28/17 05:40 RDW 14.9 % (11.5-14.5) H 03/28/17 05:40 Plt Count 186 10^3/uL (120.0-450.0) 03/28/17 05:40 MPV 8.1 fl (7.0-11.0) 03/28/17 05:40 Gran % 62.8 % (50.0-68.0) 03/25/17 05:15 Lymph % (Auto) 23.4 % (22.0-35.0) 03/25/17 05:15 [place] % (Auto) 13.2 % (1.0-6.0) H 03/25/17 05:15 Eos % (Auto) 0.5 % (1.5-5.0) L 03/25/17 05:15 Baso % (Auto) 0.1 % (0.0-3.0) 03/25/17 05:15 Gran # 4.96 (1.4-6.5) 03/25/17 05:15 Lymph # 1.9 (1.2-3.4) 03/25/17 05:15 [place] # 1.0 (0.1-0.6) H 03/25/17 05:15 Eos # 0.0 (0.0-0.7) 03/25/17 05:15 Baso # 0.01 K/mm3 (0.0-2.0) 03/25/17 05:15 PT 12.0 SECONDS (9.4-12.5) 03/24/17 01:15 INR 1.10 (0.93-1.08) H 03/24/17 01:15 APTT 23.7 Seconds (25.1-36.5) L 03/24/17 01:15 Sodium 135 mmol/L (132-148) 03/28/17 05:40 Potassium 3.8 mmol/L (3.6-5.0) 03/28/17 05:40 Chloride 101 mmol/L (98-107) 03/28/17 05:40 Carbon Dioxide 26 mmol/L (21-33) 03/28/17 05:40 Anion Gap 12 (10-20) 03/28/17 05:40 BUN 6 mg/dL (7-21) L 03/28/17 05:40 Creatinine 0.6 mg/dl (0.7-1.2) L 03/28/17 05:40 Est GFR ( Amer) > 60 03/28/17 05:40 Est GFR (Non-Af Amer) > 60 03/28/17 05:40 Random Glucose 105 mg/dL (70-110) 03/28/17 05:40 Serum Osmolality 272 mosm/kg (272-300) 03/24/17 05:00 Calcium 9.2 mg/dL (8.4-10.5) 03/28/17 05:40 Total Bilirubin 1.2 mg/dL (0.2-1.3) 03/28/17 05:40 AST 71 U/L (14-36) H 03/28/17 05:40 ALT 80 U/L (7-56) H 03/28/17 05:40 Alkaline Phosphatase 104 U/L (38-126) 03/28/17 05:40 Lactate Dehydrogenase 1229 U/L (333-699) H 03/24/17 01:15 Total Creatine Kinase 144 U/L (35-230) 03/24/17 01:15 Troponin I < 0.01 ng/mL 03/24/17 01:15 Total Protein 6.4 g/dL (5.8-8.3) 03/28/17 05:40 Albumin 3.4 g/dL (3.0-4.8) 03/28/17 05:40 Globulin 3.0 gm/dL 03/28/17 05:40 Albumin/Globulin Ratio 1.1 (1.1-1.8) 03/28/17 05:40 Urine Color Yellow (YELLOW) 03/24/17 12:15 Urine Appearance Turbid (CLEAR) 03/24/17 12:15 Urine pH 6.0 (4.7-8.0) 03/24/17 12:15 Ur Specific [place] >= 1.030 (1.005-1.035) 03/24/17 12:15 Urine Protein Trace mg/dL (<30 mg/dL) H 03/24/17 12:15 Urine Glucose (UA) Negative mg/dL (NEGATIVE) 03/24/17 12:15 Urine Ketones Negative mg/dL (NEGATIVE) 03/24/17 12:15 Urine Blood Negative (NEGATIVE) 03/24/17 12:15 Urine Nitrate Negative (NEGATIVE) 03/24/17 12:15 Urine Bilirubin Small (NEGATIVE) H 03/24/17 12:15 Urine Urobilinogen 0.2 E.U./dL (<1 E.U./dL) 03/24/17 12:15 Ur Leukocyte Esterase Trace Monty/uL (NEGATIVE) H 03/24/17 12:15 Urine RBC Negative /hpf (0-2) 03/24/17 12:15 Urine WBC 5 - 10 /hpf (0-6) 03/24/17 12:15 Ur Epithelial Cells Many /hpf (0-5) 03/24/17 12:15 Urine Bacteria Trace (NEG) 03/24/17 12:15 Urine Other Mucus 03/24/17 12:15 Urine Osmolality 536 mosm/kg (300-1000) 03/24/17 17:15 Ur Random Sodium < 5 meq/L 03/24/17 17:15 Ur Random Potassium 79.4 meq/L 03/24/17 17:15 Alcohol, Quantitative < 10 mg/dL (0-10) 03/24/17 05:00 Hepatitis A IgM Ab Negative (NEGATIVE) 03/24/17 05:00 Hep Bs Antigen Negative (NEGATIVE) 03/24/17 05:00 Hep B Core IgM Ab Negative (NEGATIVE) 03/24/17 05:00 Hepatitis C Antibody Negative (NEGATIVE) 03/24/17 05:00 Attending/Attestation - Attestation I have personally seen and examined this patient.: Yes I have fully participated in the care of the patient.: Yes I have reviewed all pertinent clinical information, including history, physical exam and plan: Yes Notes (Text): 03/28/17 14:27 67 year old female with past medical history of asthma, hypertension and ETOH abuse who presented s/p mechanical fall. Shoulder xrays which showed shoulder dislocation which was manually reducted is ER. She was on left arm sling. She was seen by orthopedics and has MRI shoulder which showed rotator cuff tear. She was seen by PT and is being transferred to TCU. She was initially hyponatremic which resolved. She has transmanitis likely secondary to chronic ETOH abuse. Patient was counselled on alcohol abstinence. She is on cipro for GNR UTI. She is being transferred to TCU. Sarahy Tatum MD Hospitalist.
[2017-03-28] MEDS: diltiaZEM 180 mg/24 Hours CD Cap PO SCH (10:35)
[2017-03-28] MEDS: Bacitracin Ointment 30 GM TUBE TOP SCH (10:36)
[2017-03-28] MEDS: FLUTICASONE FUROATE IH SCH (10:36)
== END 2017-03-28 14:11 | DRG 501 ==
LOC: ED 22:27 → ERH 03-24 02:25 → 3RNO 03-24 03:28 → OBSVTOIN 03-25 16:14
PROVIDERS: ADMIT Internal Medicine; ATTEND Internal Medicine
PROC: 0RSKXZZ Reposition Left Shoulder Joint, External Approach (ICD-10-PCS; principal; 2017-03-24)
PROC: 0KQS3ZZ Repair Right Lower Leg Muscle, Percutaneous Approach (ICD-10-PCS; 2017-03-24)
PROC: 3E0234Z Introduction of Serum, Toxoid and Vaccine into Muscle, Percutaneous Approach (ICD-10-PCS; 2017-03-24)
DX: S43.015A Anterior dislocation of left humerus, initial encounter (principal); S43.035A Inferior dislocation of left humerus, initial encounter; E87.1 Hypo-osmolality and hyponatremia; J44.9 Chronic obstructive pulmonary disease, unspecified; N39.0 Urinary tract infection, site not specified; W10.9XXA Fall (on) (from) unspecified stairs and steps, initial encounter; M75.122 Complete rotator cuff tear or rupture of left shoulder, not specified as traumatic; S81.011A Laceration without foreign body, right knee, initial encounter; S93.402A Sprain of unspecified ligament of left ankle, initial encounter; Y92.098 Other place in other non-institutional residence as the place of occurrence of the external cause; B96.89 Other specified bacterial agents as the cause of diseases classified elsewhere; E03.9 Hypothyroidism, unspecified; F10.20 Alcohol dependence, uncomplicated; F32.89 Other specified depressive episodes; F41.9 Anxiety disorder, unspecified; I10 Essential (primary) hypertension; Z91.81 History of falling; R40.2412 Glasgow coma scale score 13-15, at arrival to emergency department; J45.909 Unspecified asthma, uncomplicated; R74.0 Nonspecific elevation of levels of transaminase and lactic acid dehydrogenase [LDH]; Z23 Encounter for immunization

== ENCOUNTER 2017-03-28 14:13 | Inpatient (IN) | payer OTHER, MEDICARE ==
[2017-03-28 16:45] VITALS: BMI 42.0
[2017-03-28] MEDS ORDERED: Influenza Vaccine 60 mcg/0.5 mL SYR (4YR UP) IM ONE (16:45)
[2017-03-28] MEDS ORDERED: Pneumococcal 23-Valent Vaccine IM ONE (16:45)
[2017-03-28] MEDS: Bacitracin 500 Units/gm Oint Foilpak UD TOP SCH (17:44)
[2017-03-28] MEDS: Arformoterol 15 mcg/2 ml Inh Sol IH SCH (21:00)
[2017-03-28] MEDS: Budesonide 0.5 mg/2 ml Inhal Susp UD IH SCH (21:00)
[2017-03-29] MEDS: Pantoprazole 40 mg EC Tab PO SCH (05:30)
[2017-03-29] MEDS: Levothyroxine 25 MCG TAB PO SCH (05:30)
[2017-03-29 07:13] LABS: BASO # 0.01 K/mm3 (0.0-2.0); BASO % 0.2 % (0.0-3.0); EOS # 0.1 (0.0-0.7); EOS % 2.6 % (1.5-5.0); GRAN # 2.74 (1.4-6.5); GRAN % 55.9 % (50.0-68.0); HEMATOCRIT 35.7 % (36.0-48.0); LYMPH # 1.2 (1.2-3.4); LYMPH % 24.2 % (22.0-35.0); MEAN CORPUSCULAR HEMOGLOBIN 30.5 pg (25.0-35.0); MEAN CORPUSCULAR HGB CONC 32.8 g/dl (31.0-37.0); MONO # 0.8 (0.1-0.6); MONO % 17.1 % (1.0-6.0); RED CELL DISTRIBUTION WIDTH 15.1 % (11.5-14.5); WHITE BLOOD COUNT 4.9 10^3/ul (4.5-11.0)
[2017-03-29] MEDS: Budesonide 0.5 mg/2 ml Inhal Susp UD IH SCH ×2 (07:39→20:46)
[2017-03-29] MEDS: Arformoterol 15 mcg/2 ml Inh Sol IH SCH ×2 (07:40→20:45)
[2017-03-29 07:46] LABS: ALB/GLOB RATIO 1.1 (1.1-1.8); ALKALINE PHOSPHATASE 102 U/L (38-126); ALT/SGPT 88 U/L (7-56); AST/SGOT 74 U/L (14-36); BILIRUBIN,TOTAL 1.2 mg/dL (0.2-1.3); BLOOD UREA NITROGEN 8 mg/dL (7-21); CALCIUM 9.1 mg/dL (8.4-10.5); CARBON DIOXIDE 28 mmol/L (21-33); CHLORIDE 98 mmol/L (98-107); GFR AFRICAN-AMERICAN > 60; GLUCOSE,RANDOM 111 mg/dL (70-110); POTASSIUM 3.9 mmol/L (3.6-5.0); SODIUM 134 mmol/L (132-148); TOTAL PROTEIN 6.5 g/dL (5.8-8.3)
[2017-03-29] MEDS: diltiaZEM 180 mg/24 Hours CD Cap PO SCH (11:00)
[2017-03-29] MEDS: Bacitracin 500 Units/gm Oint Foilpak UD TOP SCH ×2 (11:00→17:21)
[2017-03-29] MEDS: Home Med 1 UNIT IH SCH (11:00)
[2017-03-29] MEDS: Levalbuterol 1.25 MG/3 ML Inhal Soln UD IH PRN (13:23)
--- NOTE | 2017-03-29 20:47 | CP.PCM.HP ---
<Pau Tomas - Last Filed: 03/29/17 22:33> History of Present Illness - History of Present Illness History of Present Illness: 67 year old female with past medical history of asthma, hypertension, alcohol use disorder who presented to [facility] [place]/p mechanical fall with complaints of left shoulder, right knee, and left ankle pain. Diagnostic testing revealed elevated LFTs, hyponatremia, and equivocal results of a UTI. Imaging of the left shoulder showed an anterior-inferior dislocation of the humeral head. Otherwise , imaging of the left ankle and right knee were negative for any acute fracture or dislocation. The left shoulder was manually reduced in the ED and placed in a sling. The right knee had a superficial laceration that was cleaned and stitched in the ED. Physical therapy, psychiatry, and orthopedic consults were placed. MRI of the left shoulder showed complete tear of the rotator cuff with retraction and atrophy and a large amount of edema deep to the deltoid muscle consistent with acute trauma. Furthermore, during the patient's hospital stay she was counselled on alcohol abstinence and was medically optimized to undergo rehabilitation in the Transitional Care Unit. She will be undergoing rehabilitation and regain her ambulatory function to its fullest capacity. She will also be continuing ciprofloxacin for a total of 5 days. Present on Admission - Present on Admission Any Indicators Present on Admission: No Review of Systems - Constitutional Constitutional: absent: Anorexia, Chills, Daytime Sleepiness - EENT Eyes: absent: Blind Spots, Decreased Night Vision, Irritation Ears: absent: Decreased Hearing, Disequilibrium, Dizziness Nose/Mouth/Throat: absent: Nasal Trauma, Nose Pain, Bleeding Gums - Breasts Breasts: absent: Change in Shape, Skin Changes - Cardiovascular Cardiovascular: absent: Chest Pain with Activity, Dyspnea on Exertion, Pain Radiating to Arm/Neck/Jaw - Respiratory Respiratory: Dyspnea, Snoring. absent: Cough, Wheezing - Gastrointestinal Gastrointestinal: absent: Change in Stool Character, Coffee Ground Emesis, Dysphagia - Genitourinary Genitourinary: absent: Pyuria, Nocturia, Urinary Incontinence - Reproductive: Female Reproductive:Female: absent: Menses >/= 8 Days, No Menses for 6 Months, Dyspareunia - Menstruation Menstruation: absent: Cycle <21 Days, No Menses for 6 Months - Musculoskeletal Musculoskeletal: Joint Swelling, Limited Range of Motion - Integumentary Integumentary: absent: Change in Pigmentation, Changing Lesions, Dry Skin - Neurological Neurological: absent: Dizziness, Headaches, Memory Loss - Psychiatric Psychiatric: Depression. absent: Anhedonia, Anxiety, Change in Appetite - Endocrine Endocrine: absent: Excessive Sweating, Increase in Ring/Shoe/Hat Size - Hematologic/Lymphatic Hematologic: absent: Easy Bleeding, Easy Bruising Past Patient History - Past Social History Smoking Status: Never Smoked - CARDIAC Hx Cardiac Disorders: Yes Hx Hypertension: Yes - PULMONARY Hx Chronic Obstructive Pulmonary Disease (COPD): Yes - NEUROLOGICAL Hx Paralysis: No - RENAL Hx Chronic Kidney Disease: No - ENDOCRINE/METABOLIC Hx Hypothyroidism: Yes - HEMATOLOGICAL/ONCOLOGICAL Hx Blood Disorders: No - INTEGUMENTARY Hx Dermatological Problems: No - MUSCULOSKELETAL/RHEUMATOLOGICAL Hx Arthritis: Yes - GASTROINTESTINAL Hx Gastrointestinal Disorders: Yes (ulcer gastritis) - GENITOURINARY/GYNECOLOGICAL Hx Reproductive Disorders: Yes (exc r breast tumor) - PSYCHIATRIC Hx Anxiety: Yes Hx Emotional Abuse: No Hx Physical Abuse: No Hx Substance Use: No - SURGICAL HISTORY Hx Orthopedic Surgery: Yes (multiple surgeries ) Other/Comment: pt has metal in right ankle - ANESTHESIA Hx Anesthesia Reactions: No Hx Malignant Hyperthermia: No Meds Allergies/Adverse Reactions: Allergies Allergy/AdvReac Type Severity Reaction Status Date / Time No Known Allergies Allergy Verified 12/13/11 09:48 Physical Exam - Constitutional Appears: Well, No Acute Distress - Head Exam Head Exam: ATRAUMATIC, NORMOCEPHALIC - Eye Exam Eye Exam: EOMI, Normal appearance, PERRL - ENT Exam ENT Exam: Mucous Membranes Moist, Normal Oropharynx - Neck Exam Neck exam: Positive for: Normal Inspection. Negative for: Lymphadenopathy, Tenderness, Thyromegaly - Respiratory Exam Respiratory Exam: Wheezes (scattered), NORMAL BREATHING PATTERN - Cardiovascular Exam Cardiovascular Exam: RRR, +S1, +S2 - GI/Abdominal Exam GI & Abdominal Exam: Normal Bowel Sounds, Soft. absent: Distended, Guarding - Extremities Exam Extremities exam: Positive for: normal capillary refill, pedal pulses present. Negative for: pedal edema - Back Exam Back exam: NORMAL INSPECTION. absent: CVA tenderness (L), CVA tenderness (R) - Neurological Exam Neurological exam: Alert, CN II-XII Intact, Oriented x3 - Psychiatric Exam Psychiatric exam: Normal Affect, Normal Mood - Skin Skin Exam: Dry, Intact, Normal Color, Warm Results - Vital Signs Recent Vital Signs: Last Vital Signs Temp 98.3 F 03/29/17 16:51 Pulse 91 H 03/29/17 16:51 Resp 15 03/29/17 16:51 BP 128/61 03/29/17 16:51 Pulse Ox 95 03/29/17 16:51 - Labs Result Diagrams: 03/29/17 06:40 03/29/17 06:40 Labs: Laboratory Results - last 24 hr 03/29/17 03/29/17 06:40 06:40 WBC 4.9 RBC 3.84 Hgb 11.7 L Hct 35.7 L MCV 93.0 MCH 30.5 MCHC 32.8 RDW 15.1 H Plt Count 163 MPV 8.0 Gran % 55.9 Lymph % (Auto) 24.2 [place] % (Auto) 17.1 H Eos % (Auto) 2.6 Baso % (Auto) 0.2 Gran # 2.74 Lymph # 1.2 [place] # 0.8 H Eos # 0.1 Baso # 0.01 Sodium 134 Potassium 3.9 Chloride 98 Carbon Dioxide 28 Anion Gap 12 BUN 8 Creatinine 0.7 Est GFR ( Amer) > 60 Est GFR (Non-Af Amer) > 60 Random Glucose 111 H Calcium 9.1 Total Bilirubin 1.2 AST 74 H ALT 88 H Alkaline Phosphatase 102 Total Protein 6.5 Albumin 3.5 Globulin 3.0 Albumin/Globulin Ratio 1.1 Assessment & Plan - Assessment and Plan (Free Text) Assessment: 67 year old female with a past medical history of obesity, COPD, alcohol abuse, transaminitis secondary to alcohol, chronic hypernatremia due to excess water intake, affective disorder, and hypothyroidism who presents s/p mechanical fall with a dislocated left shoulder and difficulty with ambulation. Plan: 1) Left shoulder pain MRI of left shoulder findings reveal: There is a complete tear and retraction of the rotator cuff. The humeral head is subluxed superiorly and touches the acromion. There is a large amount of edema deep to the deltoid muscle adjacent to the humeral head and neck. There is no evidence of hemorrhage. There is no marrow edema to suggest fracture. The glenoid labrum is intact. The biceps appears to be torn. Impression: Complete tear of the rotator cuff with retraction and atrophy. This is probably chronic. There is a large amount of edema deep to the deltoid muscle consistent with acute trauma. - Physical Therapy shall be managing her most the part. - Orthopedist consult placed, Dr. Crews 2) Left ankle pain - X-ray showed soft-tissue swelling and degenerative changes; no acute fracture or effusion. - Physical Therapy - Bacitracin to be applied to right knee laceration as directed 2a) Lower extremity edema - Doppler US negative for any sonographic evidence of DVT, appreciate consultation with Azra Cooley APN - Lasix 40 mg PO daily 2c) Mild UTI - Continue Ciprofloxacin 500 mg BID for a total of 5 days, recommendations appreciated from Azra Cooley APN 3) Right knee laceration - 2 view of right knee pending 4) Transaminitis - LFTs trending down 5) Anxiety with symptoms of depression - Psychiatry rec's appreciated: Dr. Bernardo 6) Hypothyroidism - Synthroid 25 mcg PO daily 7) Hypertension - Valsartan 320 mg PO Daily - Diltiazem 180 mg 8) GI/DVT Prophylaxis - Heparin 5000 SC q12h -Protonix 40 mg PO daily - Date & Time Date: 03/29/17 Time: 10:00 Decision To Admit - . Admitting Physician: Sarahy Tatum <Sarahy Tatum - Last Filed: 03/30/17 07:06> Results - Vital Signs Recent Vital Signs: Last Vital Signs Temp 97.9 F 03/30/17 05:41 Pulse 87 03/30/17 05:41 Resp 20 03/30/17 05:41 BP 125/73 03/30/17 05:41 Pulse Ox 95 03/30/17 05:41 - Labs Result Diagrams: 03/29/17 06:40 03/30/17 05:15 Labs: Laboratory Results - last 24 hr 03/29/17 03/29/17 03/30/17 06:40 06:40 05:15 WBC 4.9 RBC 3.84 Hgb 11.7 L Hct 35.7 L MCV 93.0 MCH 30.5 MCHC 32.8 RDW 15.1 H Plt Count 163 MPV 8.0 Gran % 55.9 Lymph % (Auto) 24.2 [place] % (Auto) 17.1 H Eos % (Auto) 2.6 Baso % (Auto) 0.2 Gran # 2.74 Lymph # 1.2 [place] # 0.8 H Eos # 0.1 Baso # 0.01 Sodium 134 135 Potassium 3.9 3.5 L Chloride 98 98 Carbon Dioxide 28 28 Anion Gap 12 13 BUN 8 11 Creatinine 0.7 0.9 Est GFR ( Amer) > 60 > 60 Est GFR (Non-Af Amer) > 60 > 60 Random Glucose 111 H 117 H Calcium 9.1 9.3 Total Bilirubin 1.2 AST 74 H ALT 88 H Alkaline Phosphatase 102 Total Protein 6.5 Albumin 3.5 Globulin 3.0 Albumin/Globulin Ratio 1.1 Attending/Attestation - Attestation I have personally seen and examined this patient.: Yes I have fully participated in the care of the patient.: Yes I have reviewed all pertinent clinical information: Yes Notes (Text): 03/30/17 07:03 67 year old female with past medical history of COPD, alcohol abuse and hypertension who presented s/p mechanical fall. She was found to have dislocated left shoulder s/p manual reduction in ER. She also has rotator cuff tear on MRI. She is being following by orthopedics and physical therapy. She is now in TCU. She is on antibiotics for UTI and lasix for LE edema. She has transaminitis, likely secondary to chronic ETOH abuse. She was counselled on alcohol abstinence. Sarahy Tatum MD Hospitalist.
[2017-03-30] MEDS: Levothyroxine 25 MCG TAB PO SCH (05:25)
[2017-03-30] MEDS: Pantoprazole 40 mg EC Tab PO SCH (05:25)
[2017-03-30 06:56] LABS: BLOOD UREA NITROGEN 11 mg/dL (7-21); CALCIUM 9.3 mg/dL (8.4-10.5); CARBON DIOXIDE 28 mmol/L (21-33); CHLORIDE 98 mmol/L (98-107); GFR AFRICAN-AMERICAN > 60; GLUCOSE,RANDOM 117 mg/dL (70-110); POTASSIUM 3.5 mmol/L (3.6-5.0); SODIUM 135 mmol/L (132-148)
[2017-03-30] MEDS ORDERED: Potassium Chloride 40 mEq/30 ml LIQ UD PO ONE (07:02)
[2017-03-30] MEDS: Arformoterol 15 mcg/2 ml Inh Sol IH SCH ×2 (07:28→20:13)
[2017-03-30] MEDS: Budesonide 0.5 mg/2 ml Inhal Susp UD IH SCH ×2 (07:29→20:13)
[2017-03-30] MEDS: diltiaZEM 180 mg/24 Hours CD Cap PO SCH (10:26)
[2017-03-30] MEDS: Bacitracin 500 Units/gm Oint Foilpak UD TOP SCH ×2 (10:26→17:20)
[2017-03-30] MEDS: Home Med 1 UNIT IH SCH (10:32)
--- NOTE | 2017-03-30 13:32 | CON ---
DATE: 03/30/2017 ORTHOPEDIC CONSULT REPORT LOCATION: A 67-year-old female in room 327, bed 2. HISTORY OF PRESENT ILLNESS: The patient was seen by me when she was first admitted to [facility] on 03/25/2017 for previously diagnosed and treated left shoulder dislocation by the emergency room staff and subsequently she had MRI showing that she had a chronic rotator cuff tear with a located left shoulder that was previously dislocated. She has good neurovascular status. She is in a shoulder sling which I told her to wear for another week as it did occur on 03/25/2017, so we will have to keep it in at least another week to stabilize the capsule and she said she may want something done for it after the holidays, so I will keep her in the sling for another week to 10 days and follow her in the office for left should dislocation, which is located, but she has underlying rotator cuff tear. We will reevaluate that as an outpatient in the office. FINAL DIAGNOSES: Anterior dislocation of left shoulder from 03/25/2017 and with a chronic rotator cuff tear on the left side. She is going to stay in the sling for another 10 days. Grant Crews DO
[2017-03-30] MEDS: Levalbuterol 1.25 MG/3 ML Inhal Soln UD IH PRN (13:59)
[2017-03-31] MEDS: Levothyroxine 25 MCG TAB PO SCH (05:09)
[2017-03-31] MEDS: Pantoprazole 40 mg EC Tab PO SCH (05:09)
[2017-03-31 08:16] LABS: BASO # 0.02 K/mm3 (0.0-2.0); BASO % 0.3 % (0.0-3.0); EOS # 0.2 (0.0-0.7); EOS % 2.8 % (1.5-5.0); GRAN # 3.7 (1.4-6.5); GRAN % 58.1 % (50.0-68.0); HEMATOCRIT 38.6 % (36.0-48.0); LYMPH # 1.7 (1.2-3.4); MEAN CELL VOLUME 94.6 fl (80.0-105.0); MEAN CORPUSCULAR HEMOGLOBIN 30.6 pg (25.0-35.0); MEAN CORPUSCULAR HGB CONC 32.4 g/dl (31.0-37.0); MEAN PLATELET VOLUME 8.2 fl (7.0-11.0); MONO # 0.8 (0.1-0.6); MONO % 11.8 % (1.0-6.0); RED CELL DISTRIBUTION WIDTH 15.1 % (11.5-14.5); WHITE BLOOD COUNT 6.4 10^3/ul (4.5-11.0)
[2017-03-31 08:33] LABS: ALB/GLOB RATIO 1.2 (1.1-1.8); ALKALINE PHOSPHATASE 105 U/L (38-126); ALT/SGPT 80 U/L (7-56); AST/SGOT 67 U/L (14-36); BLOOD UREA NITROGEN 11 mg/dL (7-21); CALCIUM 9.6 mg/dL (8.4-10.5); CARBON DIOXIDE 31 mmol/L (21-33); CHLORIDE 99 mmol/L (98-107); GFR AFRICAN-AMERICAN > 60; GLUCOSE,RANDOM 117 mg/dL (70-110); MAGNESIUM 1.8 mg/dL (1.7-2.2); POTASSIUM 4.4 mmol/L (3.6-5.0); SODIUM 137 mmol/L (132-148); TOTAL PROTEIN 7.3 g/dL (5.8-8.3)
[2017-03-31] MEDS: Budesonide 0.5 mg/2 ml Inhal Susp UD IH SCH ×2 (08:42→19:36)
[2017-03-31] MEDS: Arformoterol 15 mcg/2 ml Inh Sol IH SCH ×2 (08:42→19:36)
[2017-03-31] MEDS: Bacitracin 500 Units/gm Oint Foilpak UD TOP SCH ×2 (10:44→17:14)
[2017-03-31] MEDS: Home Med 1 UNIT IH SCH (10:45)
[2017-03-31] MEDS: diltiaZEM 180 mg/24 Hours CD Cap PO SCH (10:46)
[2017-03-31] MEDS: Levalbuterol 1.25 MG/3 ML Inhal Soln UD IH PRN (13:54)
--- NOTE | 2017-03-31 14:23 | CP.PCM.PN ---
<Rufus Jiang - Last Filed: 03/31/17 14:20> Subjective - Date & Time of Evaluation Date of Evaluation: 03/31/17 Time of Evaluation: 07:30 - Subjective Subjective: Rufus Jiang DO PGY1 - Internal Medicine Progress Note Patient seen and examined at bedside in the TCU. No events overnight. Patient reports a new cough and sinus pressure. She denies fevers, chills, nausea, vomiting, diarrhea, constipation, abdominal pain, chest pain, SOB, palpitations. Cough is nonproductive. She reports some pain in her right shoulder from having to rely on that arm alone, and is concerned about how she will dress and what she will do while having her left arm immobilized for the next couple weeks. Objective - Vital Signs/Intake and Output Vital Signs (last 24 hours): Temp Pulse Resp BP Pulse Ox 98.2 F 99 H 20 136/78 96 03/31/17 06:00 03/31/17 10:46 03/31/17 06:00 03/31/17 12:25 03/31/17 06:00 Intake and Output: 03/31/17 03/31/17 06:59 18:59 Intake Total 450 Balance 450 - Medications Medications: Current Medications Alprazolam (Xanax) 0.5 mg PO TID PRN; Protocol PRN Reason: Anxiety Last Admin: 03/30/17 23:31 Dose: 0.5 mg Arformoterol Tartrate (Brovana) 15 mcg IH [id number] [facility] Last Admin: 03/31/17 08:42 Dose: 15 mcg Bacitracin (Bacitracin) 1 ea TOP BID [facility] PRN Reason: Protocol Last Admin: 03/31/17 10:44 Dose: 1 ea Benzonatate (Tessalon Perles) 100 mg PO Q8H PRN PRN Reason: Cough Last Admin: 03/31/17 12:26 Dose: 100 mg Budesonide (Pulmicort Respules) 0.5 mg IH [id number] [facility] PRN Reason: Protocol Last Admin: 03/31/17 08:42 Dose: 0.5 mg Diltiazem HCl (Cardizem Cd) 180 mg PO DAILY [facility] PRN Reason: Protocol Last Admin: 03/31/17 10:46 Dose: 180 mg Furosemide (Lasix) 40 mg PO DAILY [facility] Heparin Sodium (Porcine) (Heparin) 5,000 units SC Q12 [facility] PRN Reason: Protocol Last Admin: 03/31/17 10:47 Dose: 5,000 units Home Med (Home Med) 1 unit IH DAILY [facility] PRN Reason: Protocol Last Admin: 03/31/17 10:45 Dose: 1 unit Levalbuterol HCl (Xopenex) 1.25 mg IH [id number] PRN; Protocol PRN Reason: Shortness of Breath Last Admin: 03/31/17 13:54 Dose: 1.25 mg Levothyroxine Sodium (Synthroid) 25 mcg PO 0600 [facility] PRN Reason: Protocol Last Admin: 03/31/17 05:09 Dose: 25 mcg Ondansetron HCl (Zofran Inj) 4 mg IVP Q6H PRN; Protocol PRN Reason: Nausea/Vomiting Last Admin: 03/29/17 09:02 Dose: 4 mg Pantoprazole Sodium (Protonix Ec Tab) 40 mg PO 0600 [facility] PRN Reason: Protocol Last Admin: 03/31/17 05:09 Dose: 40 mg Pseudoephedrine HCl (Sudafed Tab) 30 mg PO Q6H PRN PRN Reason: Sinus Congestion Stop: 04/01/17 23:59 Last Admin: 03/31/17 12:25 Dose: 30 mg Sucralfate (Carafate Tab) 1 gm PO 0600,1600 [facility] Tramadol HCl (Ultram) 50 mg PO Q8H PRN; Protocol PRN Reason: Pain, moderate (4-7) Last Admin: 03/28/17 22:40 Dose: 50 mg Valsartan (Diovan) 320 mg PO DAILY [facility] PRN Reason: Protocol Last Admin: 03/31/17 10:45 Dose: 320 mg - Labs Labs: 03/31/17 08:00 03/31/17 08:00 - Constitutional Appears: Non-toxic, No Acute Distress - Head Exam Head Exam: ATRAUMATIC, NORMOCEPHALIC - Eye Exam Eye Exam: EOMI, Normal appearance - ENT Exam ENT Exam: Mucous Membranes Moist - Neck Exam Neck Exam: Normal Inspection - Respiratory Exam Respiratory Exam: Clear to Ausculation Bilateral, NORMAL BREATHING PATTERN - Cardiovascular Exam Cardiovascular Exam: RRR, +S1, +S2 - GI/Abdominal Exam GI & Abdominal Exam: Soft, Normal Bowel Sounds. absent: Tenderness - Extremities Exam Extremities Exam: Pedal Edema (1-2+ to mid forrest). absent: Calf Tenderness Additional comments: LUE immobilized in sling RUE with full ROM without limitation - Neurological Exam Neurological Exam: Alert, Awake, Oriented x3 - Psychiatric Exam Psychiatric exam: Normal Affect, Normal Mood - Skin Skin Exam: Dry, Intact Assessment and Plan - Assessment and Plan (Free Text) Assessment: 67 year old female with a past medical history of obesity, COPD, alcohol abuse, transaminitis secondary to alcohol, chronic hypernatremia due to excess water intake, affective disorder, and hypothyroidism who presents s/p mechanical fall with a dislocated left shoulder and difficulty with ambulation. Plan: 1) Left shoulder pain 2/2 chronic rotator cuff tear and acute traumatic humeral subluxation/dislocation - Continue with physical therapy - Ortho on consult, appreciate recs 2) Left ankle pain - X-ray showed soft-tissue swelling and degenerative changes; no acute fracture or effusion. - Continue physical Therapy 3) Lower extremity edema - Doppler US negative for any sonographic evidence of DVT - Decreased lasix to 40mg PO daily (from 40mg IV daily) 4) h/o GERD - Continue protonix - Start Carafate BID (home med) 5) Right knee laceration - Right knee XR negative for acute fracture or dislocation - Continue bacitracin 6) Transaminitis - LFTs trending down 7) Anxiety with symptoms of depression - Psychiatry rec's appreciated: Dr. Bernardo 8) Hypothyroidism - Synthroid 25 mcg PO daily 9) Hypertension - Valsartan 320 mg PO Daily - Diltiazem 180 mg 10) URI - Patient complaining of cough and sinus pressure - Start tessalon perles PRN cough - Start pseudophedrine PRN congestion for one day GI/DVT Prophylaxis - Heparin, Protonix <aSrahy Tatum A - Last Filed: 03/31/17 14:46> Objective - Vital Signs/Intake and Output Vital Signs (last 24 hours): Temp Pulse Resp BP Pulse Ox 98.2 F 99 H 20 136/78 96 03/31/17 06:00 03/31/17 10:46 03/31/17 06:00 03/31/17 12:25 03/31/17 06:00 Intake and Output: 03/31/17 03/31/17 06:59 18:59 Intake Total 450 Balance 450 - Medications Medications: Current Medications Alprazolam (Xanax) 0.5 mg PO TID PRN; Protocol PRN Reason: Anxiety Last Admin: 03/30/17 23:31 Dose: 0.5 mg Arformoterol Tartrate (Brovana) 15 mcg IH [id number] [facility] Last Admin: 03/31/17 08:42 Dose: 15 mcg Bacitracin (Bacitracin) 1 ea TOP BID [facility] PRN Reason: Protocol Last Admin: 03/31/17 10:44 Dose: 1 ea Benzonatate (Tessalon Perles) 100 mg PO Q8H PRN PRN Reason: Cough Last Admin: 03/31/17 12:26 Dose: 100 mg Budesonide (Pulmicort Respules) 0.5 mg IH [id number] [facility] PRN Reason: Protocol Last Admin: 03/31/17 08:42 Dose: 0.5 mg Diltiazem HCl (Cardizem Cd) 180 mg PO DAILY [facility] PRN Reason: Protocol Last Admin: 03/31/17 10:46 Dose: 180 mg Furosemide (Lasix) 40 mg PO DAILY [facility] Heparin Sodium (Porcine) (Heparin) 5,000 units SC Q12 [facility] PRN Reason: Protocol Last Admin: 03/31/17 10:47 Dose: 5,000 units Home Med (Home Med) 1 unit IH DAILY [facility] PRN Reason: Protocol Last Admin: 03/31/17 10:45 Dose: 1 unit Levalbuterol HCl (Xopenex) 1.25 mg IH [id number] PRN; Protocol PRN Reason: Shortness of Breath Last Admin: 03/31/17 13:54 Dose: 1.25 mg Levothyroxine Sodium (Synthroid) 25 mcg PO 0600 [facility] PRN Reason: Protocol Last Admin: 03/31/17 05:09 Dose: 25 mcg Ondansetron HCl (Zofran Inj) 4 mg IVP Q6H PRN; Protocol PRN Reason: Nausea/Vomiting Last Admin: 03/29/17 09:02 Dose: 4 mg Pantoprazole Sodium (Protonix Ec Tab) 40 mg PO 0600 [facility] PRN Reason: Protocol Last Admin: 03/31/17 05:09 Dose: 40 mg Pseudoephedrine HCl (Sudafed Tab) 30 mg PO Q6H PRN PRN Reason: Sinus Congestion Stop: 04/01/17 23:59 Last Admin: 03/31/17 12:25 Dose: 30 mg Sucralfate (Carafate Tab) 1 gm PO 0600,1600 [facility] Tramadol HCl (Ultram) 50 mg PO Q8H PRN; Protocol PRN Reason: Pain, moderate (4-7) Last Admin: 03/28/17 22:40 Dose: 50 mg Valsartan (Diovan) 320 mg PO DAILY [facility] PRN Reason: Protocol Last Admin: 03/31/17 10:45 Dose: 320 mg - Labs Labs: 03/31/17 08:00 03/31/17 08:00 Attending/Attestation - Attestation I have personally seen and examined this patient.: Yes I have fully participated in the care of the patient.: Yes I have reviewed all pertinent clinical information, including history, physical exam and plan: Yes Notes (Text): 03/31/17 14:44 67 year old female with past medical history of COPD, alcohol abuse and hypertension who presented s/p mechanical fall. She was found to have dislocated left shoulder s/p manual reduction in ER. She also has rotator cuff tear on MRI. She is being following by orthopedics and physical therapy. She is now in TCU. She is on po lasix for LE edema which is improving. LE dopplers were negative. She has transaminitis, likely secondary to chronic ETOH abuse. She was counselled on alcohol abstinence. She is s/p antibiotics for UTI. Sarahy Tatum MD Hospitalist.
[2017-04-01] MEDS: Pantoprazole 40 mg EC Tab PO SCH (06:36)
[2017-04-01] MEDS: Levothyroxine 25 MCG TAB PO SCH (06:36)
[2017-04-01 07:56] LABS: BLOOD UREA NITROGEN 11 mg/dL (7-21); CALCIUM 9.3 mg/dL (8.4-10.5); CARBON DIOXIDE 31 mmol/L (21-33); CHLORIDE 96 mmol/L (98-107); GFR AFRICAN-AMERICAN > 60; GLUCOSE,RANDOM 106 mg/dL (70-110); POTASSIUM 3.7 mmol/L (3.6-5.0); SODIUM 134 mmol/L (132-148)
[2017-04-01] MEDS: Arformoterol 15 mcg/2 ml Inh Sol IH SCH (07:57)
[2017-04-01] MEDS: Budesonide 0.5 mg/2 ml Inhal Susp UD IH SCH ×2 (07:57→20:01)
[2017-04-01] MEDS: Bacitracin 500 Units/gm Oint Foilpak UD TOP SCH ×2 (10:38→17:26)
[2017-04-01] MEDS: diltiaZEM 180 mg/24 Hours CD Cap PO SCH (10:39)
[2017-04-01] MEDS: Home Med 1 UNIT IH SCH (10:44)
[2017-04-01] MEDS: Albuterol-Ipratrop 3 mg / 0.5 (3 ml) UD IH SCH ×2 (13:39→20:01)
[2017-04-02] MEDS: Albuterol-Ipratrop 3 mg / 0.5 (3 ml) UD IH SCH ×4 (03:26→19:20)
[2017-04-02] MEDS: Pantoprazole 40 mg EC Tab PO SCH (05:14)
[2017-04-02] MEDS: Levothyroxine 25 MCG TAB PO SCH (05:14)
[2017-04-02] MEDS: Budesonide 0.5 mg/2 ml Inhal Susp UD IH SCH ×2 (07:23→19:20)
[2017-04-02 08:01] VITALS: RESP 18; TEMP 98.3; O2SAT 92
[2017-04-02] MEDS: Bacitracin 500 Units/gm Oint Foilpak UD TOP SCH ×2 (11:08→17:03)
[2017-04-02] MEDS: diltiaZEM 180 mg/24 Hours CD Cap PO SCH (11:08)
[2017-04-02] MEDS: Home Med 1 UNIT IH SCH (11:09)
[2017-04-02 11:22] VITALS: PULSE 100
--- NOTE | 2017-04-02 17:17 | CP.PCM.PN ---
<Pau Tomas - Last Filed: 04/02/17 17:18> Subjective - Date & Time of Evaluation Date of Evaluation: 04/02/17 Time of Evaluation: 09:00 - Subjective Subjective: Pau Tomas DO, PGY-1: Hospitalist Service Patient seen and examined at bedside. Patient states her sutures need to be removed. Patient denies any chest pain, nausea, vomiting, diarrhea, or worsening lower extremity edema. Nurse reports no events overnight. Objective - Vital Signs/Intake and Output Vital Signs (last 24 hours): Temp Pulse Resp BP Pulse Ox 98.3 F 100 H 18 134/69 92 L 04/02/17 06:00 04/02/17 11:08 04/02/17 06:00 04/02/17 11:09 04/02/17 06:00 Intake and Output: 04/02/17 04/02/17 06:59 18:59 Intake Total 420 Balance 420 - Medications Medications: Current Medications Albuterol/Ipratropium (Duoneb 3 Mg/0.5 Mg (3 Ml) Ud) 3 ml IH [id number] [facility] Last Admin: 04/02/17 13:26 Dose: 3 ml Alprazolam (Xanax) 0.5 mg PO TID PRN; Protocol PRN Reason: Anxiety Last Admin: 04/02/17 14:22 Dose: 0.5 mg Bacitracin (Bacitracin) 1 ea TOP BID [facility] PRN Reason: Protocol Last Admin: 04/02/17 17:03 Dose: 1 ea Budesonide (Pulmicort Respules) 0.5 mg IH [id number] [facility] PRN Reason: Protocol Last Admin: 04/02/17 07:23 Dose: 0.5 mg Diltiazem HCl (Cardizem Cd) 180 mg PO DAILY [facility] PRN Reason: Protocol Last Admin: 04/02/17 11:08 Dose: 180 mg Furosemide (Lasix) 40 mg PO DAILY [facility] Last Admin: 04/02/17 11:09 Dose: 40 mg Heparin Sodium (Porcine) (Heparin) 5,000 units SC Q12 [facility] PRN Reason: Protocol Last Admin: 04/02/17 11:10 Dose: 5,000 units Home Med (Home Med) 1 unit IH DAILY [facility] PRN Reason: Protocol Last Admin: 04/02/17 11:09 Dose: 1 unit Levothyroxine Sodium (Synthroid) 25 mcg PO 0600 [facility] PRN Reason: Protocol Last Admin: 04/02/17 05:14 Dose: 25 mcg Loratadine (Claritin) 10 mg PO DAILY [facility] Last Admin: 04/02/17 11:08 Dose: 10 mg Ondansetron HCl (Zofran Inj) 4 mg IVP Q6H PRN; Protocol PRN Reason: Nausea/Vomiting Last Admin: 03/29/17 09:02 Dose: 4 mg Pantoprazole Sodium (Protonix Ec Tab) 40 mg PO 0600 [facility] PRN Reason: Protocol Last Admin: 04/02/17 05:14 Dose: 40 mg Sodium Chloride ([place]) 0 ml NS Q4H PRN PRN Reason: Nasal congestion Last Admin: 04/02/17 04:14 Dose: 2 spr Sucralfate (Carafate Tab) 1 gm PO 0600,1600 [facility] Last Admin: 04/02/17 17:00 Dose: 1 gm Tramadol HCl (Ultram) 50 mg PO Q8H PRN; Protocol PRN Reason: Pain, moderate (4-7) Last Admin: 03/28/17 22:40 Dose: 50 mg Valsartan (Diovan) 320 mg PO DAILY [facility] PRN Reason: Protocol Last Admin: 04/02/17 11:08 Dose: 320 mg - Labs Labs: 03/31/17 08:00 04/01/17 07:30 - Constitutional Appears: Well, Non-toxic - Head Exam Head Exam: ATRAUMATIC, NORMOCEPHALIC - Eye Exam Eye Exam: EOMI, Normal appearance - ENT Exam ENT Exam: Mucous Membranes Moist, Normal Oropharynx - Neck Exam Neck Exam: Normal Inspection - Respiratory Exam Respiratory Exam: Clear to Ausculation Bilateral, NORMAL BREATHING PATTERN - Cardiovascular Exam Cardiovascular Exam: RRR, +S1, +S2 - GI/Abdominal Exam GI & Abdominal Exam: Soft, Normal Bowel Sounds - Extremities Exam Extremities Exam: Normal Inspection. absent: Joint Swelling, Pedal Edema Additional comments: suture noted below in infrapatellar region - Back Exam Back Exam: NORMAL INSPECTION. absent: CVA tenderness (L), CVA tenderness (R) - Neurological Exam Neurological Exam: Alert, CN II-XII Intact, Oriented x3 - Psychiatric Exam Psychiatric exam: Normal Affect, Normal Mood - Skin Skin Exam: Dry, Intact, Normal Color, Warm Assessment and Plan - Assessment and Plan (Free Text) Assessment: 67 year old female with a past medical history of obesity, COPD, alcohol abuse, transaminitis secondary to alcohol, chronic hypernatremia due to excess water intake, affective disorder, and hypothyroidism who presents s/p mechanical fall with a dislocated left shoulder and difficulty with ambulation. Plan: 1) Left shoulder pain MRI of left shoulder findings reveal: There is a complete tear and retraction of the rotator cuff. The humeral head is subluxed superiorly and touches the acromion. There is a large amount of edema deep to the deltoid muscle adjacent to the humeral head and neck. There is no evidence of hemorrhage. There is no marrow edema to suggest fracture. The glenoid labrum is intact. The biceps appears to be torn. Impression: Complete tear of the rotator cuff with retraction and atrophy. This is probably chronic. There is a large amount of edema deep to the deltoid muscle consistent with acute trauma. - Physical Therapy shall be managing her most the part. - Orthopedist consult placed, Dr. Crews 2) Left ankle pain - X-ray showed soft-tissue swelling and degenerative changes; no acute fracture or effusion. - Physical Therapy - Bacitracin to be applied to right knee laceration as directed 2a) Lower extremity edema - Doppler US negative for any sonographic evidence of DVT - Lasix 40 mg PO daily 3) Anxiety with symptoms of depression - Psychiatry rec's appreciated: Dr. Bernardo - Continue home medication, Xanax 0.5 mg BID 4) Hypothyroidism - Synthroid 25 mcg PO daily 5) Hypertension - Valsartan 320 mg PO Daily - Diltiazem 180 mg 6) GI/DVT Prophylaxis - Heparin 5000 SC q12h -Protonix 40 mg PO daily 7) History of asthma and allergic rhinitis - Claritin 10 mg PO daily - Pulmicort q12h - Duonebs 3 ml q6h respiratory <Madhavi Ervin - Last Filed: 04/04/17 15:09> Objective - Vital Signs/Intake and Output Vital Signs (last 24 hours): Temp Pulse Resp BP Pulse Ox 98.3 F 100 H 18 124/74 92 L 04/02/17 06:00 04/02/17 11:08 04/02/17 06:00 04/03/17 09:07 04/02/17 06:00 - Labs Labs: 03/31/17 08:00 04/01/17 07:30 Attending/Attestation - Attestation I have personally seen and examined this patient.: Yes I have fully participated in the care of the patient.: Yes I have reviewed all pertinent clinical information, including history, physical exam and plan: Yes Notes (Text): Patient was seen and examined with emergency medical service manager. Agreed with resident assessment and plan. 67 year old female with past medical history of COPD, alcohol abuse and hypertension was initially admitted to medical floor for mechanical fall. She was found to have dislocated left shoulder , underwent manual reduction in ER. She also has rotator cuff tear on MRI. She was transferred to TCU for rehabilitation.She has transaminitis, likely secondary to chronic ETOH abuse which is stable She was counselled on alcohol abstinence.She is s/p antibiotics for UTI.Patient leg edema is improved. Management plan was discussed in detail with patient Education was provided.
[2017-04-03] MEDS: Albuterol-Ipratrop 3 mg / 0.5 (3 ml) UD IH SCH ×3 (01:09→13:09)
[2017-04-03] MEDS: Pantoprazole 40 mg EC Tab PO SCH (05:55)
[2017-04-03] MEDS: Levothyroxine 25 MCG TAB PO SCH (05:56)
[2017-04-03] MEDS: Budesonide 0.5 mg/2 ml Inhal Susp UD IH SCH (07:51)
[2017-04-03] MEDS: diltiaZEM 180 mg/24 Hours CD Cap PO SCH (09:07)
[2017-04-03] MEDS: Bacitracin 500 Units/gm Oint Foilpak UD TOP SCH (09:07)
[2017-04-03] MEDS: Home Med 1 UNIT IH SCH (09:08)
[2017-04-03 09:09] VITALS: BP 124/74
--- NOTE | 2017-04-03 15:11 | CP.PCM.DIS ---
<Pau Tomas - Last Filed: 04/03/17 15:11> Provider - Provider Date of Admission: 03/28/17 14:13 Attending physician: Sarahy Tatum MD Primary care physician: Israel García MD Consults: Dr. Crews Time Spent in preparation of Discharge (in minutes): 55 Hospital Course - Lab Results Lab Results: Most Recent Lab Values WBC 6.4 10^3/ul (4.5-11.0) D 03/31/17 08:00 RBC 4.08 10^6/uL (3.5-6.1) 03/31/17 08:00 Hgb 12.5 g/dL (12.0-16.0) 03/31/17 08:00 Hct 38.6 % (36.0-48.0) 03/31/17 08:00 MCV 94.6 fl (80.0-105.0) 03/31/17 08:00 MCH 30.6 pg (25.0-35.0) 03/31/17 08:00 MCHC 32.4 g/dl (31.0-37.0) 03/31/17 08:00 RDW 15.1 % (11.5-14.5) H 03/31/17 08:00 Plt Count 213 10^3/uL (120.0-450.0) 03/31/17 08:00 MPV 8.2 fl (7.0-11.0) 03/31/17 08:00 Gran % 58.1 % (50.0-68.0) 03/31/17 08:00 Lymph % (Auto) 27.0 % (22.0-35.0) 03/31/17 08:00 [place] % (Auto) 11.8 % (1.0-6.0) H 03/31/17 08:00 Eos % (Auto) 2.8 % (1.5-5.0) 03/31/17 08:00 Baso % (Auto) 0.3 % (0.0-3.0) 03/31/17 08:00 Gran # 3.70 (1.4-6.5) 03/31/17 08:00 Lymph # 1.7 (1.2-3.4) 03/31/17 08:00 [place] # 0.8 (0.1-0.6) H 03/31/17 08:00 Eos # 0.2 (0.0-0.7) 03/31/17 08:00 Baso # 0.02 K/mm3 (0.0-2.0) 03/31/17 08:00 Sodium 134 mmol/L (132-148) 04/01/17 07:30 Potassium 3.7 mmol/L (3.6-5.0) 04/01/17 07:30 Chloride 96 mmol/L (98-107) L 04/01/17 07:30 Carbon Dioxide 31 mmol/L (21-33) 04/01/17 07:30 Anion Gap 11 (10-20) 04/01/17 07:30 BUN 11 mg/dL (7-21) 04/01/17 07:30 Creatinine 0.8 mg/dl (0.7-1.2) 04/01/17 07:30 Est GFR ( Amer) > 60 04/01/17 07:30 Est GFR (Non-Af Amer) > 60 04/01/17 07:30 Random Glucose 106 mg/dL (70-110) 04/01/17 07:30 Calcium 9.3 mg/dL (8.4-10.5) 04/01/17 07:30 Magnesium 1.8 mg/dL (1.7-2.2) 03/31/17 08:00 Total Bilirubin 1.0 mg/dL (0.2-1.3) 03/31/17 08:00 AST 67 U/L (14-36) H 03/31/17 08:00 ALT 80 U/L (7-56) H 03/31/17 08:00 Alkaline Phosphatase 105 U/L (38-126) 03/31/17 08:00 Total Protein 7.3 g/dL (5.8-8.3) 03/31/17 08:00 Albumin 3.9 g/dL (3.0-4.8) 03/31/17 08:00 Globulin 3.3 gm/dL 03/31/17 08:00 Albumin/Globulin Ratio 1.2 (1.1-1.8) 03/31/17 08:00 - Hospital Course Hospital Course: 67 year old female with past medical history of asthma, hypertension, alcohol use disorder, chronic hyponatremia who [place] [facility] [place] with complaints of left shoulder, right knee, and left ankle pain. Diagnostic testing revealed elevated LFTs, hyponatremia, and a UTI. Imaging of the left shoulder showed an anterior-inferior dislocation of the humeral head. Otherwise , imaging of the left ankle and right knee were negative for any acute fracture or dislocation. The left shoulder was manually reduced in the ED and placed in a sling. The right knee had a superficial laceration that was cleaned and stitched in the ED. Physical therapy, psychiatry, and orthopedic consults were placed. MRI of the left shoulder showed complete tear of the rotator cuff with retraction and atrophy and a large amount of edema deep to the deltoid muscle consistent with acute trauma. During the patient's hospital stay she was counselled on alcohol abstinence and was medically optimized for physical therapy in the Transitional Care Unit. She underwent physical therapy and regained her ambulatory capacity. Prior to discharge, her right knee stitches were removed and the patient was walking and ambulating without any gait disturbance. She was discharged with the below written instructions. - Date & Time of H&P Date of H&P: 04/03/17 Time of H&P: 15:20 Discharge Exam - Head Exam Head Exam: ATRAUMATIC, NORMOCEPHALIC - Eye Exam Eye Exam: EOMI, Normal appearance - ENT Exam ENT Exam: Mucous Membranes Moist, Normal Oropharynx - Neck Exam Neck exam: Normal Inspection - Respiratory Exam Respiratory Exam: Chest Wall Tenderness, NORMAL BREATHING PATTERN - Cardiovascular Exam Cardiovascular Exam: RRR, +S1, +S2 - GI/Abdominal Exam GI & Abdominal Exam: Normal Bowel Sounds. absent: Guarding, Rebound - Extremities Exam Extremities exam: normal capillary refill, normal inspection - Back Exam Back exam: NORMAL INSPECTION. absent: CVA tenderness (L), CVA tenderness (R) - Neurological Exam Neurological exam: Alert, CN II-XII Intact, Normal Gait, Oriented x3 - Psychiatric Exam Psychiatric exam: Normal Affect, Normal Mood - Skin Skin Exam: Dry, Intact, Normal Color, Warm Discharge Plan - Follow Up Plan Condition: GOOD Disposition: HOME/ ROUTINE Instructions: Shoulder Dislocation (DC), Hyponatremia (DC), Hyponatremia (GEN) , Syncope (DC), COPD (Chronic Obstructive Pulmonary Disease) (DC), At-Risk Alcohol Use (DC), Chronic Hypertension (DC) Additional Instructions: 1) Patient to follow up with Dr. García within the next 7 days. 2) Patient to take any medication as prescribed. 3) Patient to return to the ED for any worsening of symptoms. 4) Patient to abstain/avoid alcohol. 5) Patient to follow up with Dr. Crews as advised. Referrals: Israel García MD [Primary Care Provider] - <Madhavi Ervin - Last Filed: 04/04/17 15:14> Provider - Provider Date of Admission: 03/28/17 14:13 Attending physician: Sarahy Tatum MD Primary care physician: Israel García MD Hospital Course - Lab Results Lab Results: Most Recent Lab Values WBC 6.4 10^3/ul (4.5-11.0) D 03/31/17 08:00 RBC 4.08 10^6/uL (3.5-6.1) 03/31/17 08:00 Hgb 12.5 g/dL (12.0-16.0) 03/31/17 08:00 Hct 38.6 % (36.0-48.0) 03/31/17 08:00 MCV 94.6 fl (80.0-105.0) 03/31/17 08:00 MCH 30.6 pg (25.0-35.0) 03/31/17 08:00 MCHC 32.4 g/dl (31.0-37.0) 03/31/17 08:00 RDW 15.1 % (11.5-14.5) H 03/31/17 08:00 Plt Count 213 10^3/uL (120.0-450.0) 03/31/17 08:00 MPV 8.2 fl (7.0-11.0) 03/31/17 08:00 Gran % 58.1 % (50.0-68.0) 03/31/17 08:00 Lymph % (Auto) 27.0 % (22.0-35.0) 03/31/17 08:00 [place] % (Auto) 11.8 % (1.0-6.0) H 03/31/17 08:00 Eos % (Auto) 2.8 % (1.5-5.0) 03/31/17 08:00 Baso % (Auto) 0.3 % (0.0-3.0) 03/31/17 08:00 Gran # 3.70 (1.4-6.5) 03/31/17 08:00 Lymph # 1.7 (1.2-3.4) 03/31/17 08:00 [place] # 0.8 (0.1-0.6) H 03/31/17 08:00 Eos # 0.2 (0.0-0.7) 03/31/17 08:00 Baso # 0.02 K/mm3 (0.0-2.0) 03/31/17 08:00 Sodium 134 mmol/L (132-148) 04/01/17 07:30 Potassium 3.7 mmol/L (3.6-5.0) 04/01/17 07:30 Chloride 96 mmol/L (98-107) L 04/01/17 07:30 Carbon Dioxide 31 mmol/L (21-33) 04/01/17 07:30 Anion Gap 11 (10-20) 04/01/17 07:30 BUN 11 mg/dL (7-21) 04/01/17 07:30 Creatinine 0.8 mg/dl (0.7-1.2) 04/01/17 07:30 Est GFR ( Amer) > 60 04/01/17 07:30 Est GFR (Non-Af Amer) > 60 04/01/17 07:30 Random Glucose 106 mg/dL (70-110) 04/01/17 07:30 Calcium 9.3 mg/dL (8.4-10.5) 04/01/17 07:30 Magnesium 1.8 mg/dL (1.7-2.2) 03/31/17 08:00 Total Bilirubin 1.0 mg/dL (0.2-1.3) 03/31/17 08:00 AST 67 U/L (14-36) H 03/31/17 08:00 ALT 80 U/L (7-56) H 03/31/17 08:00 Alkaline Phosphatase 105 U/L (38-126) 03/31/17 08:00 Total Protein 7.3 g/dL (5.8-8.3) 03/31/17 08:00 Albumin 3.9 g/dL (3.0-4.8) 03/31/17 08:00 Globulin 3.3 gm/dL 03/31/17 08:00 Albumin/Globulin Ratio 1.2 (1.1-1.8) 03/31/17 08:00 Attending/Attestation - Attestation I have personally seen and examined this patient.: Yes I have fully participated in the care of the patient.: Yes I have reviewed all pertinent clinical information, including history, physical exam and plan: Yes Notes (Text): 04/04/17 15:11 Patient was seen and examined with medical safety director. 67 year old female with past medical history of COPD, alcohol abuse and hypertension was initially admitted to medical floor for mechanical fall. She was found to have dislocated left shoulder , underwent manual reduction in ER. She also has rotator cuff tear on MRI. She was transferred to TCU for rehabilitation.She has transaminitis, likely secondary to chronic ETOH abuse which is stable She was counselled on alcohol abstinence.COPD is stable.Patient is not wheezing , she is on room air. .Patient leg edema is improved.Patient will be discharged home and will follow up with PCP and Ortho. Management plan was discussed in detail with patient Education was provided.
== END 2017-04-03 15:47 | disposition home health service (06) | DRG 563 ==
LOC: TRCU 14:13
PROVIDERS: ADMIT Internal Medicine; ATTEND Internal Medicine
PROC: F07Z9ZZ Gait Training/Functional Ambulation Treatment (ICD-10-PCS; principal; 2017-03-29)
PROC: F07M6ZZ Therapeutic Exercise Treatment of Musculoskeletal System - Whole Body (ICD-10-PCS; 2017-03-29)
PROC: F08Z0ZZ Bathing/Showering Techniques Treatment (ICD-10-PCS; 2017-03-29)
PROC: F08Z1ZZ Dressing Techniques Treatment (ICD-10-PCS; 2017-03-29)
PROC: F08Z4ZZ Home Management Treatment (ICD-10-PCS; 2017-03-29)
PROC: F08Z2ZZ Grooming/Personal Hygiene Treatment (ICD-10-PCS; 2017-03-29)
DX: S43.015A Anterior dislocation of left humerus, initial encounter (principal); E87.1 Hypo-osmolality and hyponatremia; J44.9 Chronic obstructive pulmonary disease, unspecified; N39.0 Urinary tract infection, site not specified; W18.30XA Fall on same level, unspecified, initial encounter; S81.011A Laceration without foreign body, right knee, initial encounter; S43.036A Inferior dislocation of unspecified humerus, initial encounter; E03.9 Hypothyroidism, unspecified; F10.10 Alcohol abuse, uncomplicated; F39 Unspecified mood [affective] disorder; F41.9 Anxiety disorder, unspecified; I10 Essential (primary) hypertension; M75.122 Complete rotator cuff tear or rupture of left shoulder, not specified as traumatic; M19.90 Unspecified osteoarthritis, unspecified site; R74.0 Nonspecific elevation of levels of transaminase and lactic acid dehydrogenase [LDH]; J06.9 Acute upper respiratory infection, unspecified; F32.89 Other specified depressive episodes; J45.909 Unspecified asthma, uncomplicated; J30.9 Allergic rhinitis, unspecified

== ENCOUNTER 2018-06-28 12:08 | Outpatient (CLI) | payer MEDICARE | END 2018-06-28 12:09 | disposition home or self-care (01) | LOC: RAD 12:08 ==

== ENCOUNTER 2018-07-11 12:13 | Outpatient (CLI) | payer MEDICARE | END 2018-07-11 12:14 | disposition home or self-care (01) | LOC: RAD 12:13 ==

== ENCOUNTER 2018-09-03 11:45 | Outpatient (CLI) | payer MEDICARE | END 2018-09-03 11:46 | disposition home or self-care (01) | LOC: LAB 11:45 ==

== ENCOUNTER 2018-09-12 10:35 | Outpatient (CLI) | payer MEDICARE | END 2018-09-12 10:36 | disposition home or self-care (01) | LOC: RAD 10:35 ==